=== PATIENT | male | born 1975 | race American Indian/Alaskan Native ===

== ENCOUNTER 2017-11-05 09:27 | Emergency (ER) | payer SELFPAY ==
--- NOTE | 2017-11-05 09:55 | Emergency Department Report ---
Chief Complaint: Dizziness Stated Complaint: DIZZINESS/HEADACHE Time Seen by Provider: 11/05/17 09:54 - HPI History of Present Illness: Patient here complaining of dizziness and lightheadedness this morning. He said he has blurred vision in his right eye. Denies any fall or near Syncope. He said he was diagnosed with a mild stroke one month ago at this hospital and he was admitted and stayed in the hospital for 3 days. He also said he had similar symptoms when he was diagnosed with mild stroke. Patient has a history of high blood pressure, CVA, hypertension and diabetes. He said his blood sugar was 114 this morning. Denies any nausea or vomiting. Complaining of headache that feels achy. Denies any nausea or vomiting. Patient denies any chest pain or shortness of breath. - ROS Review of Systems: All systems are negative unless stated in HPI above - Exam Vital Signs: Vital Signs 11/05/17 09:38 Temperature 98.7 F Pulse Rate 97 H Respiratory 18 Rate Blood Pressure 130/77 O2 Sat by Pulse 96 Oximetry Physical Exam: Gen.: This is a 42-year-old male well-nourished well-developed and nontoxic in appearance Mini neurological exam: GCS is 14, alert and oriented 3. Bilateral hand larry operator are equal. Normal gait. No motor or sensory deficit. No facial droop. An speech is fluid Cardiovascular: S1, S2. Regular rate rhythm negative murmur MSE screening note: Focused history and physical exam performed. Due to findings the following was ordered: ED Medical Decision Making - Medical Decision Making MDM: Patient screened by provider in triage area. Appropriate protocol initiated and patient to be seen in main ED by ED Disposition for MSE Condition: Stable
[2017-11-05 10:27] LABS: Basophils % (Auto) 1.1 % (0.0-1.8); Eosinophils % (Auto) 3.3 % (0.0-4.3); Hematocrit 30.8 % (35.5-45.6); Hemoglobin 10.2 gm/dl (11.8-15.2); Mean Corpuscular HGB Conc 33 % (32-34); Mean Corpuscular Hemoglobin 27 pg (28-32); Mean Corpuscular Volume 80 fl (84-94); Platelet Count 260 K/mm3 (140-440); Red Blood Count 3.85 M/mm3 (3.65-5.03); Red Cell Distribution Width 16.2 % (13.2-15.2); White Blood Count 8.7 K/mm3 (4.5-11.0)
[2017-11-05 10:36] LABS: INR 0.91 (0.87-1.13)
[2017-11-05 10:37] LABS: Partial Thromboplastin Time 31.7 Sec. (24.2-36.6)
[2017-11-05 10:50] LABS: Albumin 3.8 g/dL (3.9-5); Albumin/Globulin Ratio 1.1 %; Bilirubin,Total 0.4 mg/dL (0.1-1.2); Calcium 8.6 mg/dL (8.4-10.2); Chloride 101.2 mmol/L (98-107); Total Protein 7.2 g/dL (6.3-8.2)
--- NOTE | 2017-11-05 11:42 | Cat Scan Report ---
Cranial CT without contrast. History: Lightheadedness/dizziness. Findings: Comparison is made to a previous cranial CT performed on October 02 and an MRI of the brain performed on October 03. There is no evidence of acute hemorrhage or infarct. There are no masses or extra-axial collections. The ventricles and cortical sulci are normal. The mild hypodensity is seen in the periventricular white matter especially posteriorly are unchanged. No significant new findings are seen. There are no extra-axial collections. The calvarium is normal. Minimal mucosal thickening in the visualized maxillary sinuses. Impression: No acute findings. Mild periventricular white matter changes as described on 2 previous imaging studies with no interval change or new findings.
[2017-11-05] MEDS ORDERED: BENADRYL IV ONE (12:09)
[2017-11-05] MEDS ORDERED: REGLAN IV PRN (12:09)
[2017-11-05] MEDS ORDERED: APRESOLINE IV ONE (12:09)
[2017-11-05] MEDS ORDERED: BABY ASPIRIN PO ONE (12:09)
--- NOTE | 2017-11-05 12:10 | Emergency Department Report ---
ED General Adult HPI - General Chief complaint: Dizziness Stated complaint: DIZZINESS/HEADACHE Time Seen by Provider: 11/05/17 09:54 Source: patient, RN notes reviewed, old records reviewed Mode of arrival: Ambulatory Limitations: No Limitations - History of Present Illness Initial comments: This is a 42-year-old male who is previously known to this provider, past medical history includes hypertension, diabetes, congestive heart failure, heart disease, chronic renal insufficiency. Patient presents to the ER with a complaint of occipital headache that was present upon waking up from sleep this morning, and a sensation of unsteady gait. The headache was not sudden or thunderclap in nature, its maximal intensity within an hour, and it is not the worse headache of his life. Patient denies focal extremity weakness/numbness. Today, the patient endorses change in vision in both eyes over the past few months, and endorses "black spots" in his bilateral vision, indicates that he seen in outpatient "eye doctor for this." Patient reports that his sensation of headache has resolved, and the sensation of unsteady gait has resolved. The headache did not radiate anywhere, his symptoms do not have exacerbating or relieving factors. Patient recently admitted to this hospital for presumed transient ischemic attack, had an extensive workup, please see his discharge summary from earlier on October. -: Gradual Location: head Radiation: non-radiation Severity scale (0 -10): 5 Quality: aching Consistency: now resolved Improves with: none Worsens with: none Associated Symptoms: headaches. denies: confusion, chest pain, cough, diaphoresis, fever/chills - Related Data Home Medications Medication Instructions Recorded Confirmed Last Taken Furosemide [Lasix TAB] 40 mg PO QDAY 11/05/17 11/05/17 11/05/17 Potassium Chloride [Klor-Con 10] 10 meq PO DAILY 11/05/17 11/05/17 11/05/17 10 MEQ Pravastatin [Pravachol] 40 mg PO QHS 11/05/17 11/05/17 11/05/17 glipiZIDE [Glipizide] 5 mg PO BIDAC 11/05/17 11/05/17 11/05/17 5 mg metFORMIN [Glucophage] 850 mg PO BID 11/05/17 11/05/17 11/05/17 Previous Rx's Medication Instructions Recorded Last Taken Type Aspirin [Aspirin BABY CHEW TAB] 81 mg PO QDAY #30 tab.chew 09/29/17 11/05/17 Rx 81 mg Carvedilol [Coreg] 12.5 mg PO BID #60 tablet 09/29/17 11/05/17 Rx 12.5 mg cloNIDine [Catapres] 0.1 mg PO Q8H #90 tablet 09/29/17 11/05/17 Rx hydrALAZINE [Apresoline TAB] 100 mg PO Q8HR #90 tab 09/29/17 11/05/17 Rx 100 mg Allergies Allergy/AdvReac Type Severity Reaction Status Date / Time No Known Allergies Allergy Verified 10/02/17 18:06 ED Review of Systems ROS: Stated complaint: DIZZINESS/HEADACHE Other details as noted in HPI Constitutional: denies: fever Eyes: vision change ENT: denies: epistaxis Respiratory: denies: cough Cardiovascular: denies: chest pain Gastrointestinal: denies: abdominal pain Genitourinary: denies: dysuria Neurological: headache, abnormal gait. denies: vertigo ED Past Medical Hx - Past Medical History Previous Medical History?: Yes Hx Hypertension: Yes Hx CVA: Yes Hx Congestive Heart Failure: No Hx Diabetes: Yes Hx Deep Vein Thrombosis: No Hx Arthritis: No Hx Asthma: No Hx COPD: No - Surgical History Past Surgical History?: No - Social History Smoking Status: Current Every Day Smoker Substance Use Type: None - Medications Home Medications: Home Medications Medication Instructions Recorded Confirmed Last Taken Type Aspirin [Aspirin BABY CHEW TAB] 81 mg PO QDAY #30 tab.chew 09/29/17 11/05/1704/17 Rx 81 mg Carvedilol [Coreg] 12.5 mg PO BID #60 tablet 09/29/17 11/05/17 11/05/17 Rx 12.5 mg cloNIDine [Catapres] 0.1 mg PO Q8H #90 tablet 09/29/17 11/05/17 11/05/17 Rx hydrALAZINE [Apresoline TAB] 100 mg PO Q8HR #90 tab 09/29/17 11/05/17 11/05/17 Rx 100 mg Furosemide [Lasix TAB] 40 mg PO QDAY 11/05/17 11/05/17 11/05/17 History Potassium Chloride [Klor-Con 10] 10 meq PO DAILY 11/05/17 11/05/17 11/05/17 History 10 MEQ Pravastatin [Pravachol] 40 mg PO QHS 11/05/17 11/05/17 11/05/17 History glipiZIDE [Glipizide] 5 mg PO BIDAC 11/05/17 11/05/17 11/05/17 History 5 mg metFORMIN [Glucophage] 850 mg PO BID 11/05/17 11/05/17 11/05/17 History ED Physical Exam - General Limitations: No Limitations General appearance: alert, in no apparent distress - Head Head exam: Present: atraumatic, normocephalic - Eye Eye exam: Present: normal appearance, PERRL, EOMI, other (visual acuity intact to finger counting, color perception, reading at a close distance). Absent: nystagmus - ENT ENT exam: Present: normal exam, normal orophraynx, mucous membranes moist, normal external ear exam - Neck Neck exam: Present: normal inspection, full ROM - Respiratory Respiratory exam: Present: normal lung sounds bilaterally. Absent: respiratory distress, chest wall tenderness - Cardiovascular Cardiovascular Exam: Present: regular rate, normal rhythm, normal heart sounds. Absent: systolic murmur, diastolic murmur, rubs, gallop - GI/Abdominal GI/Abdominal exam: Present: soft, normal bowel sounds. Absent: distended, tenderness, guarding, rebound, rigid, pulsatile mass - Rectal Rectal exam: Present: deferred - Extremities Exam Extremities exam: Present: normal inspection, full ROM, normal capillary refill. Absent: pedal edema, joint swelling, calf tenderness - Back Exam Back exam: Present: normal inspection, full ROM. Absent: paraspinal tenderness , vertebral tenderness - Neurological Exam Neurological exam: Present: alert, oriented X3, CN II-XII intact, normal gait ( normal gait, normal tandem gait, negative pronator drift, negative Romberg examination, normal [id number].), other (Extraocular movements intact. Tongue midline. No facial droop. Facial sensation intact to light touch in the V1, V2, V3 distribution bilaterally. 5 and 5 strength in 4 extremities.. Sensation is intact to light touch in 4 extremities.). Absent: motor sensory deficit - Psychiatric Psychiatric exam: Present: normal affect, normal mood - Skin Skin exam: Present: warm, dry, intact, normal color. Absent: rash ED Course Vital Signs 1211/05/17 11/05/17 09:38 11:00 11:30 Temperature 98.7 F Pulse Rate 97 H 77 Respiratory 18 13 18 Rate Blood Pressure 130/77 169/104 Blood Pressure [Left] O2 Sat by Pulse 96 99 Oximetry 11/05/17 11/05/17 11/05/17 11:33 12:00 12:30 Temperature 98.8 F Pulse Rate 75 79 Respiratory 16 16 Rate Blood Pressure 171/109 191/118 Blood Pressure 169/104 [Left] O2 Sat by Pulse 99 98 98 Oximetry 11/05/17 11/05/17 11/05/17 12:37 13:00 13:30 Temperature Pulse Rate 79 Respiratory Rate Blood Pressure 191/118 169/115 174/109 Blood Pressure [Left] O2 Sat by Pulse 95 97 Oximetry ED Medical Decision Making - Lab Data Result diagrams: 11/05/17 10:13 11/05/17 10:13 Vital Signs 11/05/17 11/05/17 11/05/17 09:38 11:00 11:30 Temperature 98.7 F Pulse Rate 97 H 77 Respiratory 18 13 18 Rate Blood Pressure 130/77 169/104 Blood Pressure [Left] O2 Sat by Pulse 96 99 Oximetry 11/05/17 11/05/17 11/05/17 11:33 12:00 12:30 Temperature 98.8 F Pulse Rate 75 79 Respiratory 16 16 Rate Blood Pressure 171/109 191/118 Blood Pressure 169/104 [Left] O2 Sat by Pulse 99 98 98 Oximetry 11/05/17 11/05/17 11/05/17 12:37 13:00 13:30 Temperature Pulse Rate 79 Respiratory Rate Blood Pressure 191/118 169/115 174/109 Blood Pressure [Left] O2 Sat by Pulse 95 97 Oximetry Lab Results 11/05/17 11/05/17 11/05/17 Range/Units 10:13 10:13 10:13 WBC 8.7 (4.5-11.0) K/mm3 RBC 3.85 (3.65-5.03) M/mm3 Hgb 10.2 L (11.8-15.2) gm/dl Hct 30.8 L (35.5-45.6) % MCV 80 L (84-94) fl MCH 27 L (28-32) pg MCHC 33 (32-34) % RDW 16.2 H (13.2-15.2) % Plt Count 260 (140-440) K/mm3 Lymph % (Auto) 11.2 L (13.4-35.0) % [place] % (Auto) 7.8 H (0.0-7.3) % Eos % (Auto) 3.3 (0.0-4.3) % Baso % (Auto) 1.1 (0.0-1.8) % Lymph # 1.0 L (1.2-5.4) K/mm3 [place] # 0.7 (0.0-0.8) K/mm3 Eos # 0.3 (0.0-0.4) K/mm3 Baso # 0.1 (0.0-0.1) K/mm3 Seg Neutrophils % 76.6 H (40.0-70.0) % Seg Neutrophils # 6.7 (1.8-7.7) K/mm3 PT 12.7 (12.2-14.9) Sec. INR 0.91 (0.87-1.13) APTT 31.7 (24.2-36.6) Sec. Sodium 142 (137-145) mmol/L Potassium 4.0 (3.6-5.0) mmol/L Chloride 101.2 (98-107) mmol/L Carbon Dioxide 27 (22-30) mmol/L Anion Gap 18 mmol/L BUN 35 H (9-20) mg/dL Creatinine 2.3 H (0.8-1.5) mg/dL Estimated GFR 38 ml/min BUN/Creatinine Ratio 15 % Glucose 158 H (75-100) mg/dL POC Glucose (70-105) Calcium 8.6 (8.4-10.2) mg/dL Total Bilirubin 0.40 (0.1-1.2) mg/dL AST 11 (5-40) units/L ALT 11 (7-56) units/L Alkaline Phosphatase 74 (35-129) units/L Troponin T (0.00-0.029) ng/mL Total Protein 7.2 (6.3-8.2) g/dL Albumin 3.8 L (3.9-5) g/dL Albumin/Globulin Ratio 1.1 % Triglycerides (2-149) mg/dL Cholesterol (50-199) mg/dL LDL Cholesterol Direct (50-130) mg/dL HDL Cholesterol (40-59) mg/dL Cholesterol/HDL Ratio % 11/05/17 11/05/17 11/05/17 Range/Units 10:13 10:27 11:57 WBC (4.5-11.0) K/mm3 RBC (3.65-5.03) M/mm3 Hgb (11.8-15.2) gm/dl Hct (35.5-45.6) % MCV (84-94) fl MCH (28-32) pg MCHC (32-34) % RDW (13.2-15.2) % Plt Count (140-440) K/mm3 Lymph % (Auto) (13.4-35.0) % [place] % (Auto) (0.0-7.3) % Eos % (Auto) (0.0-4.3) % Baso % (Auto) (0.0-1.8) % Lymph # (1.2-5.4) K/mm3 [place] # (0.0-0.8) K/mm3 Eos # (0.0-0.4) K/mm3 Baso # (0.0-0.1) K/mm3 Seg Neutrophils % (40.0-70.0) % Seg Neutrophils # (1.8-7.7) K/mm3 PT (12.2-14.9) Sec. INR (0.87-1.13) APTT (24.2-36.6) Sec. Sodium (137-145) mmol/L Potassium (3.6-5.0) mmol/L Chloride (98-107) mmol/L Carbon Dioxide (22-30) mmol/L Anion Gap mmol/L BUN (9-20) mg/dL Creatinine (0.8-1.5) mg/dL Estimated GFR ml/min BUN/Creatinine Ratio % Glucose (75-100) mg/dL POC Glucose 158 H 148 H (70-105) Calcium (8.4-10.2) mg/dL Total Bilirubin (0.1-1.2) mg/dL AST (5-40) units/L ALT (7-56) units/L Alkaline Phosphatase (35-129) units/L Troponin T 0.118 H* (0.00-0.029) ng/mL Total Protein (6.3-8.2) g/dL Albumin (3.9-5) g/dL Albumin/Globulin Ratio % Triglycerides 132 (2-149) mg/dL Cholesterol 109 (50-199) mg/dL LDL Cholesterol Direct 43 L (50-130) mg/dL HDL Cholesterol 40 (40-59) mg/dL Cholesterol/HDL Ratio 2.72 % - EKG Data -: EKG Interpreted by Me - EKG Data 11/05/17 14:07 Normal sinus, 76 bpm, normal axis, QTC prolonged, high left ventricular voltage , T-wave inversions in the lateral leads, abnormal EKG, not morphologically consistent with ST elevation myocardial infarction, patient not having chest pain. - Radiology Data Radiology results: report reviewed, image reviewed Noncontrast CT scan of the brain is negative for acute findings, chronic findings are noted. - Medical Decision Making Differential diagnosis, including but not limited to: Transient ischemic attack , migraine headache, cluster headache, tension headache, posterior reversible encephalopathy syndrome X Assessment and plan 42-year-old male with headache, resolved visual complaints, resolved ataxia. He is afebrile with reassuring vital signs, with the exception of hypertension. Patient reports black spots in his vision for months , and reports that he is seeing an outpatient eye doctor for this. GCS of 15, NIH score was 0, woke up with symptoms, therefore not a TPA candidate. His blood pressure is elevated, and he is given hydralazine for this, as well as medication for headache. Case presents to the Hospital physician, Dr. Park, who accepted the patient for further evaluation and management. Patient will require more aggressive blood pressure control. Critical care attestation.: If time is entered above; I have spent that time in minutes in the direct care of this critically ill patient, excluding procedure time. ED Disposition Clinical Impression: TIA (transient ischemic attack), Renal insufficiency, Hypertensive urgency Disposition: OP ADMIT IP TO THIS HOSP Is pt being admited?: Yes Does the pt Need Aspirin: Yes Condition: Good
--- NOTE | 2017-11-05 12:14 | History and Physical Report ---
History of Present Illness Chief complaint: I feel dizzy History of present illness: 42 YO Male with HTN, DM, Nicotine Dependence,CKD, Medication Noncompliance presents to ED for evaluation. Pt seen and evaluated in ED and treated with supportive care, and CT head which was negative for acute findings. Pt seen and evaluated in ED. Patient reports that his sensation of headache has resolved, and the sensation of unsteady gait has resolved. Pt medically optimzied and back to usual stat of health. Pt discharged home and instructed to f/u with Neurology within 1wk. Pt instructed to continue antiplatelet therapy at discharge. Past History Past Medical History: diabetes, hypertension, renal failure Past Surgical History: No surgical history, Other (reviewed) Social history: single, smoking. denies: alcohol abuse, prescription drug abuse Family history: no significant family history Medications and Allergies Allergies Allergy/AdvReac Type Severity Reaction Status Date / Time No Known Allergies Allergy Verified 10/02/17 18:06 Home Medications Medication Instructions Recorded Confirmed Last Taken Type Aspirin [Aspirin BABY CHEW TAB] 81 mg PO QDAY #30 tab.chew 09/29/17 11/05/1704/17 Rx 81 mg Carvedilol [Coreg] 12.5 mg PO BID #60 tablet 09/29/17 11/05/17 11/05/17 Rx 12.5 mg cloNIDine [Catapres] 0.1 mg PO Q8H #90 tablet 09/29/17 11/05/17 11/05/17 Rx hydrALAZINE [Apresoline TAB] 100 mg PO Q8HR #90 tab 09/29/17 11/05/17 11/05/17 Rx 100 mg Furosemide [Lasix TAB] 40 mg PO QDAY 11/05/17 11/05/17 11/05/17 History Potassium Chloride [Klor-Con 10] 10 meq PO DAILY 11/05/17 11/05/17 11/05/17 History 10 MEQ Pravastatin [Pravachol] 40 mg PO QHS 11/05/17 11/05/17 11/05/17 History glipiZIDE [Glipizide] 5 mg PO BIDAC 11/05/17 11/05/17 11/05/17 History 5 mg metFORMIN [Glucophage] 850 mg PO BID 11/05/17 11/05/17 11/05/17 History traMADol [Ultram 50 MG tab] 50 mg PO Q6HR PRN #20 tablet 11/21/17 Unknown Rx Active Meds: Active Medications Metoclopramide HCl (Reglan) 10 mg IV Q6H PRN PRN Reason: Nausea And Vomiting Review of Systems Constitutional: no weight loss, no weight gain, no fever, no chills Ears, nose, mouth and throat: no ear pain, no ear discharge, no tinnitis, no decreased hearing Cardiovascular: no chest pain, no orthopnea, no palpitations, no rapid/ irregular heart beat Respiratory: no cough, no cough with sputum, no excessive sputum, no hemoptysis Gastrointestinal: no nausea, no vomiting, no diarrhea, no constipation Genitourinary Male: no dysuria, no hematuria, no flank pain, no discharge, no urinary frequency, no urinary hesitancy Rectal: no pain, no incontinence, no bleeding Musculoskeletal: no neck stiffness, no neck pain, no shooting arm pain, no arm numbness/tingling, no low back pain Integumentary: no rash, no pruritis, no redness, no sores, no wounds Neurological: no paralysis, no weakness, no parathesias, no numbness, no tingling Psychiatric: no memory loss, no change in sleep habits, no sleep disturbances, no insomnia, no hypersomnia, no change in appetite Endocrine: no cold intolerance, no heat intolerance, no polyphagia, no excessive thirst, no polydipsia, no polyuria, no nocturia Hematologic/Lymphatic: no easy bruising, no easy bleeding Allergic/Immunologic: no urticaria, no allergic rhinitis, no wheezing Exam - Constitutional Vitals: Temp Pulse Resp BP Pulse Ox 98.8 F 75 16 169/104 99 11/05/17 11:33 11/05/17 11:33 11/05/17 11:33 11/05/17 11:33 11/05/17 11:33 General appearance: Present: no acute distress, well-nourished - EENT Eyes: Present: PERRL ENT: hearing intact, clear oral mucosa - Neck Neck: Present: supple, normal ROM - Respiratory Respiratory effort: normal Respiratory: bilateral: CTA - Cardiovascular Heart Sounds: Present: S1 & S2. Absent: rub, click - Extremities Extremities: pulses symmetrical, No edema Peripheral Pulses: within normal limits - Abdominal General gastrointestinal: Present: soft, non-tender, non-distended, normal bowel sounds Male genitourinary: Present: normal - Integumentary Integumentary: Present: clear, warm, dry - Musculoskeletal Musculoskeletal: gait normal, strength equal bilaterally - Psychiatric Psychiatric: appropriate mood/affect, intact judgment & insight - Neurologic Neurologic: CNII-XII intact, moves all extremities Results - Labs CBC & Chem 7: 11/05/17 10:13 11/05/17 10:13 Labs: Abnormal lab results 11/05/17 11/05/17 11/05/17 Range/Units 10:13 10:13 10:13 Hgb 10.2 L (11.8-15.2) gm/dl Hct 30.8 L (35.5-45.6) % MCV 80 L (84-94) fl MCH 27 L (28-32) pg RDW 16.2 H (13.2-15.2) % Lymph % (Auto) 11.2 L (13.4-35.0) % [place] % (Auto) 7.8 H (0.0-7.3) % Lymph # 1.0 L (1.2-5.4) K/mm3 Seg Neutrophils % 76.6 H (40.0-70.0) % BUN 35 H (9-20) mg/dL Creatinine 2.3 H (0.8-1.5) mg/dL Glucose 158 H (75-100) mg/dL POC Glucose (70-105) Troponin T 0.118 H* (0.00-0.029) ng/mL Albumin 3.8 L (3.9-5) g/dL LDL Cholesterol Direct 43 L (50-130) mg/dL 11/05/17 11/05/17 Range/Units 10:27 11:57 Hgb (11.8-15.2) gm/dl Hct (35.5-45.6) % MCV (84-94) fl MCH (28-32) pg RDW (13.2-15.2) % Lymph % (Auto) (13.4-35.0) % [place] % (Auto) (0.0-7.3) % Lymph # (1.2-5.4) K/mm3 Seg Neutrophils % (40.0-70.0) % BUN (9-20) mg/dL Creatinine (0.8-1.5) mg/dL Glucose (75-100) mg/dL POC Glucose 158 H 148 H (70-105) Troponin T (0.00-0.029) ng/mL Albumin (3.9-5) g/dL LDL Cholesterol Direct (50-130) mg/dL Assessment and Plan - Patient Problems (1) Dizziness Status: Acute Plan to address problem: CT Head unremarkable for acute findings. Outpatient Neurology f/u. F/U pcp 1wk, resume antiplatelet therapy. (2) Diabetes Status: Acute Plan to address problem: resume current therapy. (3) HTN (hypertension) Status: Acute Plan to address problem: resume home medication.
[2017-11-05] MEDS ORDERED: CATAPRES PO ONE (14:20)
[2017-11-05] MEDS ORDERED: COREG PO ONE (14:20)
[2017-11-05 15:16] VITALS: BP 146/87
== END 2017-11-05 15:25 | disposition admitted as inpatient to this hospital (09) ==
LOC: ED 09:27
DX: G45.9 Transient cerebral ischemic attack, unspecified (principal); I16.0 Hypertensive urgency; E11.22 Type 2 diabetes mellitus with diabetic chronic kidney disease; I13.0 Hypertensive heart and chronic kidney disease with heart failure and stage 1 through stage 4 chronic kidney disease, or unspecified chronic kidney disease; N18.9 Chronic kidney disease, unspecified; I50.9 Heart failure, unspecified; F17.200 Nicotine dependence, unspecified, uncomplicated
CPT/HCPCS: 36415; 70450; 80053; 80061; 82962; 84484; 85025; 85610; 85730; 96374; 96375; 99284; J0360; J1200; J2765

== ENCOUNTER 2017-11-20 17:45 | Emergency (ER) | payer OTHER ==
[2017-11-20 18:40] LABS: Basophils % (Auto) 0.7 % (0.0-1.8); Eosinophils % (Auto) 3.8 % (0.0-4.3); Hematocrit 31.6 % (35.5-45.6); Hemoglobin 10.4 gm/dl (11.8-15.2); Mean Corpuscular HGB Conc 33 % (32-34); Mean Corpuscular Hemoglobin 26 pg (28-32); Mean Corpuscular Volume 80 fl (84-94); Platelet Count 233 K/mm3 (140-440); Red Blood Count 3.95 M/mm3 (3.65-5.03); Red Cell Distribution Width 17.6 % (13.2-15.2); White Blood Count 7.6 K/mm3 (4.5-11.0)
[2017-11-20 18:51] LABS: Mucus,Urine FEW /HPF
[2017-11-20 18:55] LABS: Calcium 8.9 mg/dL (8.4-10.2); Chloride 98.1 mmol/L (98-107)
[2017-11-20 19:20] LABS: Bacteria,Urine 1+ /HPF (Negative)
[2017-11-20 20:09] LABS: Bilirubin,Urine TNR (Negative); Blood,Urine TNR (Negative); Ketones,Urine TNR mg/dL (Negative); Leukocyte Esterase,Urine TNR (Negative); Nitrite,Urine TNR (Negative); PH,Urine TNR (5.0-7.0); Protein,Urine TNR mg/dL (Negative); Urobilinogen,Urine TNR mg/dL (<2.0)
[2017-11-21] MEDS ORDERED: CATAPRES PO ONE (01:09)
--- NOTE | 2017-11-21 01:18 | Emergency Department Report ---
- General Chief complaint: Pain General Stated complaint: FLU LIKE SYMPTOMS Time Seen by Provider: 11/20/17 23:49 Source: patient, family, old records reviewed Mode of arrival: Ambulatory Limitations: No Limitations - History of Present Illness Initial comments: 42-year-old man with a past medical history of diabetes, hypertension, and chronic renal insufficiency presents to the hospital with complaints of generalized weakness. Triage states weakness 3 days. Patient states weakness 1 day. Patient complains of generalized body aches and feeling weak and fatigued. Family states he was just here in October for stroke. As per October discharge summary reviewed and patient presented with right side numbness, tingling, and slurred speech, elevated troponin 0.1, elevated creatinine 2.5, elevated glucose of 314. He was diagnosed with TIA and had a brain MRI that was normal. He was treated for accelerated hypertension. He had a cardiac cath received ostial D2 100% mid RCA and left to right collaterals recommended for medical therapy by cardiology. Patient also had carotid Dopplers and echocardiogram performed. Nonspecific elevation in troponin was thought to be secondary to chronic kidney disease, underlying CHF, and uncontrolled BP. Patient denies cough, fever, dysuria, vomiting, diarrhea, or melena. Symptoms are generalized and nonspecific. Patient apparently has been experienced generalized weakness since October presentation. Patient presents with area blood pressure states she's been compliant but did not take his 10pm dose of his BP medication because he was in the hospital. Patient also presenting here November 05 but was discharged from the ED. patient does not have a primary care - Related Data Home Medications Medication Instructions Recorded Confirmed Last Taken Furosemide [Lasix TAB] 40 mg PO QDAY 11/05/17 11/05/17 11/05/17 Potassium Chloride [Klor-Con 10] 10 meq PO DAILY 11/05/17 11/05/17 11/05/17 10 MEQ Pravastatin [Pravachol] 40 mg PO QHS 11/05/17 11/05/17 11/05/17 glipiZIDE [Glipizide] 5 mg PO BIDAC 11/05/17 11/05/17 11/05/17 5 mg metFORMIN [Glucophage] 850 mg PO BID 11/05/17 11/05/17 11/05/17 Previous Rx's Medication Instructions Recorded Last Taken Type Aspirin [Aspirin BABY CHEW TAB] 81 mg PO QDAY #30 tab.chew 09/29/17 11/05/17 Rx 81 mg Carvedilol [Coreg] 12.5 mg PO BID #60 tablet 09/29/17 11/05/17 Rx 12.5 mg cloNIDine [Catapres] 0.1 mg PO Q8H #90 tablet 09/29/17 11/05/17 Rx hydrALAZINE [Apresoline TAB] 100 mg PO Q8HR #90 tab 09/29/17 11/05/17 Rx 100 mg traMADol [Ultram 50 MG tab] 50 mg PO Q6HR PRN #20 tablet 11/21/17 Unknown Rx Allergies Allergy/AdvReac Type Severity Reaction Status Date / Time No Known Allergies Allergy Verified 10/02/17 18:06 ED Review of Systems ROS: Stated complaint: FLU LIKE SYMPTOMS Other details as noted in HPI Comment: All other systems reviewed and negative Other: Constitutional: No fevers chills Eyes: No eye pain visual changes ENT: No ear pain or throat pain Neck: Denies pain Respiratory: Denies cough wheezing shortness of breath Cardiovascular: Denies chest pain, palpitations, syncope GI: Denies abdominal pain, nausea, vomiting, diarrhea : Denies dysuria Musculoskeletal: as per hpi Skin: Denies rash, lesions, erythema Neurologic: Denies headache Psychiatric: Denies suicidal ideation, hallucinations ED Past Medical Hx - Past Medical History Previous Medical History?: Yes Hx Hypertension: Yes Hx CVA: Yes Hx Congestive Heart Failure: No Hx Diabetes: Yes Hx Deep Vein Thrombosis: No Hx Renal Disease: Yes (chronic renal insufficiency) Hx Arthritis: No Hx Asthma: No Hx COPD: No - Surgical History Past Surgical History?: No - Social History Smoking Status: Current Every Day Smoker Substance Use Type: Prescribed - Medications Home Medications: Home Medications Medication Instructions Recorded Confirmed Last Taken Type Aspirin [Aspirin BABY CHEW TAB] 81 mg PO QDAY #30 tab.chew 09/29/17 11/05/1704/17 Rx 81 mg Carvedilol [Coreg] 12.5 mg PO BID #60 tablet 09/29/17 11/05/17 11/05/17 Rx 12.5 mg cloNIDine [Catapres] 0.1 mg PO Q8H #90 tablet 09/29/17 11/05/17 11/05/17 Rx hydrALAZINE [Apresoline TAB] 100 mg PO Q8HR #90 tab 09/29/17 11/05/17 11/05/17 Rx 100 mg Furosemide [Lasix TAB] 40 mg PO QDAY 11/05/17 11/05/17 11/05/17 History Potassium Chloride [Klor-Con 10] 10 meq PO DAILY 11/05/17 11/05/17 11/05/17 History 10 MEQ Pravastatin [Pravachol] 40 mg PO QHS 11/05/17 11/05/17 11/05/17 History glipiZIDE [Glipizide] 5 mg PO BIDAC 11/05/17 11/05/17 11/05/17 History 5 mg metFORMIN [Glucophage] 850 mg PO BID 11/05/17 11/05/17 11/05/17 History traMADol [Ultram 50 MG tab] 50 mg PO Q6HR PRN #20 tablet 11/21/17 Unknown Rx ED Physical Exam - General Limitations: No Limitations - Other Other exam information: General: No limitations, patient is alert in no acute distress Head exam: Atraumatic, normocephalic Eyes exam: Normal appearance, pupils equal reactive to light, extraocular movements intact ENT: Moist mucous membrane, normal oropharynx Neck exam: Normal inspection, full range of motion, no meningismus nontender Respiratory exam: Clear to auscultation bilateral, no wheezes, rales, crackles Cardiovascular: Normal rate and rhythm, normal heart sounds Abdomen: Soft, nondistended, and nontender, with normal bowel sounds, no rebound, or guarding Extremity: Full range of motion normal inspection no deformity Back: Normal Inspection, full range of motion, no tenderness Neurologic: Alert, oriented x3, cranial nerves intact, no motor or sensory deficit, 5/5 upper and lower extremity strength equal bilaterally, finger-nose- finger function intact Psychiatric: normal affect, normal mood Skin: Warm, dry, intact ED Course Vital Signs 11/20/17 11/20/17 11/21/17 17:59 23:39 01:37 Temperature 99.6 F 97.9 F Pulse Rate 87 92 H Respiratory 16 18 Rate Blood Pressure 170/112 197/128 Blood Pressure 186/117 [Right] O2 Sat by Pulse 99 97 Oximetry - Reevaluation(s) Reevaluation #1: 11/21/17 03:17 Patient treated with clonidine with reduction in blood pressure. Also given tramadol for generalized body ED Medical Decision Making - Lab Data Result diagrams: 11/20/17 18:17 11/20/17 18:17 Lab Results 11/20/17 11/20/17 11/20/17 Range/Units 18:05 18:17 18:17 WBC 7.6 (4.5-11.0) K/mm3 RBC 3.95 (3.65-5.03) M/mm3 Hgb 10.4 L (11.8-15.2) gm/dl Hct 31.6 L (35.5-45.6) % MCV 80 L (84-94) fl MCH 26 L (28-32) pg MCHC 33 (32-34) % RDW 17.6 H (13.2-15.2) % Plt Count 233 (140-440) K/mm3 Lymph % (Auto) 14.9 (13.4-35.0) % [place] % (Auto) 8.0 H (0.0-7.3) % Eos % (Auto) 3.8 (0.0-4.3) % Baso % (Auto) 0.7 (0.0-1.8) % Lymph # 1.1 L (1.2-5.4) K/mm3 [place] # 0.6 (0.0-0.8) K/mm3 Eos # 0.3 (0.0-0.4) K/mm3 Baso # 0.1 (0.0-0.1) K/mm3 Seg Neutrophils % 72.6 H (40.0-70.0) % Seg Neutrophils # 5.5 (1.8-7.7) K/mm3 Sodium 137 (137-145) mmol/L Potassium 4.0 (3.6-5.0) mmol/L Chloride 98.1 (98-107) mmol/L Carbon Dioxide 27 (22-30) mmol/L Anion Gap 16 mmol/L BUN 29 H (9-20) mg/dL Creatinine 2.1 H (0.8-1.5) mg/dL Estimated GFR 42 ml/min BUN/Creatinine Ratio 14 % Glucose 193 H (75-100) mg/dL POC Glucose 224 H (70-105) Calcium 8.9 (8.4-10.2) mg/dL Total Creatine Kinase (55-170) units/L CK-MB (CK-2) (0.0-4.0) ng/mL CK-MB (CK-2) Rel Index (0-4) Troponin T (0.00-0.029) ng/mL Triglycerides (2-149) mg/dL Cholesterol (50-199) mg/dL LDL Cholesterol Direct (50-130) mg/dL HDL Cholesterol (40-59) mg/dL Cholesterol/HDL Ratio % TSH (0.270-4.200) mlU/mL Free T4 (0.76-1.46) ng/dL Urine Color Urine Turbidity Urine pH Ur Specific [place] Urine Protein Urine Glucose (UA) Urine Ketones Urine Blood Urine Nitrite Ur Reducing Substances Urine Bilirubin Urine Ictotest Urine Urobilinogen Ur Leukocyte Esterase Urine WBC (Auto) (0.0-6.0) /HPF Urine RBC (Auto) (0.0-6.0) /HPF Urine Bacteria (Auto) (Negative) /HPF Hyaline Casts /LPF Urine Mucus /HPF 11/20/17 11/21/17 11/21/17 Range/Units Unknown 01:17 01:17 WBC (4.5-11.0) K/mm3 RBC (3.65-5.03) M/mm3 Hgb (11.8-15.2) gm/dl Hct (35.5-45.6) % MCV (84-94) fl MCH (28-32) pg MCHC (32-34) % RDW (13.2-15.2) % Plt Count (140-440) K/mm3 Lymph % (Auto) (13.4-35.0) % [place] % (Auto) (0.0-7.3) % Eos % (Auto) (0.0-4.3) % Baso % (Auto) (0.0-1.8) % Lymph # (1.2-5.4) K/mm3 [place] # (0.0-0.8) K/mm3 Eos # (0.0-0.4) K/mm3 Baso # (0.0-0.1) K/mm3 Seg Neutrophils % (40.0-70.0) % Seg Neutrophils # (1.8-7.7) K/mm3 Sodium (137-145) mmol/L Potassium (3.6-5.0) mmol/L Chloride (98-107) mmol/L Carbon Dioxide (22-30) mmol/L Anion Gap mmol/L BUN (9-20) mg/dL Creatinine (0.8-1.5) mg/dL Estimated GFR ml/min BUN/Creatinine Ratio % Glucose (75-100) mg/dL POC Glucose (70-105) Calcium (8.4-10.2) mg/dL Total Creatine Kinase 183 H (55-170) units/L CK-MB (CK-2) 7.6 H (0.0-4.0) ng/mL CK-MB (CK-2) Rel Index 4.1 H (0-4) Troponin T 0.100 H (0.00-0.029) ng/mL Triglycerides 59 (2-149) mg/dL Cholesterol 111 (50-199) mg/dL LDL Cholesterol Direct 57 (50-130) mg/dL HDL Cholesterol 43 (40-59) mg/dL Cholesterol/HDL Ratio 2.58 % TSH 3.070 (0.270-4.200) mlU/mL Free T4 1.66 H (0.76-1.46) ng/dL Urine Color TNR Urine Turbidity TNR Urine pH TNR Ur Specific [place] TNR Urine Protein TNR Urine Glucose (UA) TNR Urine Ketones TNR Urine Blood TNR Urine Nitrite TNR Ur Reducing Substances TNR Urine Bilirubin TNR Urine Ictotest TNR Urine Urobilinogen TNR Ur Leukocyte Esterase TNR Urine WBC (Auto) 1.0 (0.0-6.0) /HPF Urine RBC (Auto) 1.0 (0.0-6.0) /HPF Urine Bacteria (Auto) 1+ (Negative) /HPF Hyaline Casts 1 /LPF Urine Mucus Few /HPF 11/21/17 11/21/17 Range/Units 03:13 Unknown WBC (4.5-11.0) K/mm3 RBC (3.65-5.03) M/mm3 Hgb (11.8-15.2) gm/dl Hct (35.5-45.6) % MCV (84-94) fl MCH (28-32) pg MCHC (32-34) % RDW (13.2-15.2) % Plt Count (140-440) K/mm3 Lymph % (Auto) (13.4-35.0) % [place] % (Auto) (0.0-7.3) % Eos % (Auto) (0.0-4.3) % Baso % (Auto) (0.0-1.8) % Lymph # (1.2-5.4) K/mm3 [place] # (0.0-0.8) K/mm3 Eos # (0.0-0.4) K/mm3 Baso # (0.0-0.1) K/mm3 Seg Neutrophils % (40.0-70.0) % Seg Neutrophils # (1.8-7.7) K/mm3 Sodium (137-145) mmol/L Potassium (3.6-5.0) mmol/L Chloride (98-107) mmol/L Carbon Dioxide (22-30) mmol/L Anion Gap mmol/L BUN (9-20) mg/dL Creatinine (0.8-1.5) mg/dL Estimated GFR ml/min BUN/Creatinine Ratio % Glucose (75-100) mg/dL POC Glucose 92 (70-105) Calcium (8.4-10.2) mg/dL Total Creatine Kinase (55-170) units/L CK-MB (CK-2) (0.0-4.0) ng/mL CK-MB (CK-2) Rel Index (0-4) Troponin T (0.00-0.029) ng/mL Triglycerides (2-149) mg/dL Cholesterol (50-199) mg/dL LDL Cholesterol Direct (50-130) mg/dL HDL Cholesterol (40-59) mg/dL Cholesterol/HDL Ratio % TSH (0.270-4.200) mlU/mL Free T4 (0.76-1.46) ng/dL Urine Color Yellow Urine Turbidity Clear Urine pH 6.0 Ur Specific [place] 1.015 Urine Protein 100 mg/dl Urine Glucose (UA) Negative Urine Ketones Negative Urine Blood Negative Urine Nitrite Negative Ur Reducing Substances Not Reportable Urine Bilirubin Negative Urine Ictotest Not Reportable Urine Urobilinogen < 2.0 Ur Leukocyte Esterase Negative Urine WBC (Auto) < 1.0 (0.0-6.0) /HPF Urine RBC (Auto) 2.0 (0.0-6.0) /HPF Urine Bacteria (Auto) 1+ (Negative) /HPF Hyaline Casts /LPF Urine Mucus /HPF - EKG Data -: EKG Interpreted by Me EKG shows normal: sinus rhythm, axis (-32), QRS complexes (99), ST-T waves (lat t inv) Rate: normal (91) - EKG Data When compared to previous EKG there are: no significant change (compared to 11/05) - Medical Decision Making Patient's labs do not reveal any acute abnormality. Patient has chronically elevated troponin that is similar to his baseline and had a recent cardiac cath on October admission. Patient also reported generalized weakness and presents with no focality on exam. Had a MRI during his TIA symptoms in October and did not have any acute findings. UA negative for infection. No signs of rhabdomyolysis as patient is on a statin. Renal insufficiency is chronic and unchanged. Orthostatics negative, and patient does not have significant thyroid disease based on labs. EKG is also unchanged. Patient be discharged home to follow with the primary care doctor for generalized weakness complaints. - Differential Diagnosis anemia, dehydration, rhabdomyolysis, infection,electrolyte abnl Critical Care Time: No Critical care attestation.: If time is entered above; I have spent that time in minutes in the direct care of this critically ill patient, excluding procedure time. ED Disposition Clinical Impression: Generalized weakness, HTN (hypertension), Diabetes, Chronic renal insufficiency Disposition: DC-01 TO HOME OR SELFCARE Is pt being admited?: No Does the pt Need Aspirin: No Condition: Stable Instructions: Weakness (ED), Hypertension (ED), Diabetes Mellitus Type 2 in Adults (ED) Additional Instructions: Follow-up with a primary care doctor for further outpatient workup and evaluation of generalized body aches and weakness. Please return if symptoms worsen as indicated by O discharge or shortness. Take the prescribed medications for pain as needed. Prescriptions: traMADol [Ultram 50 MG tab] 50 mg PO Q6HR PRN #20 tablet PRN Reason: Pain Referrals: SIMON VIRK MD [Staff Physician] - 3-5 Days (Primary care doctor) [facility] [Provider Group] - 3-5 Days (primary care clinic) Time of Disposition: 03:20
[2017-11-21] MEDS ORDERED: ULTRAM PO ONE (01:34)
[2017-11-21 01:37] VITALS: BP 197/128
[2017-11-21 02:10] LABS: Creatine Kinase MB 7.6 ng/mL (0.0-4.0)
[2017-11-21 02:35] LABS: Bacteria,Urine 1+ /HPF (Negative); WBC,Urine < 1.0 /HPF (0.0-6.0)
[2017-11-21 02:58] LABS: Bilirubin,Urine Negative (Negative); Blood,Urine Negative (Negative); Ketones,Urine Negative (Negative); Urobilinogen,Urine < 2.0 mg/dL (<2.0)
[2017-11-21 02:59] LABS: Leukocyte Esterase,Urine Negative (Negative); Nitrite,Urine Negative (Negative)
== END 2017-11-21 03:34 | disposition home or self-care (01) ==
LOC: ED 17:45
DX: R53.1 Weakness (principal); E11.22 Type 2 diabetes mellitus with diabetic chronic kidney disease; I12.9 Hypertensive chronic kidney disease with stage 1 through stage 4 chronic kidney disease, or unspecified chronic kidney disease; N18.9 Chronic kidney disease, unspecified; F17.200 Nicotine dependence, unspecified, uncomplicated; Z86.73 Personal history of transient ischemic attack (TIA), and cerebral infarction without residual deficits
CPT/HCPCS: 36415; 80048; 80061; 81001; 82550; 82553; 82962; 84439; 84443; 84484; 85025; 93005; 93010; 99283

== ENCOUNTER 2018-01-04 17:11 | Inpatient (IN) | payer OTHER ==
[2018-01-04] MEDS ORDERED: ASPIRIN PO ONE (17:20)
[2018-01-04 18:38] LABS: Hemoglobin 9.8 gm/dl (11.8-15.2); Mean Corpuscular HGB Conc 33 % (32-34); Mean Corpuscular Hemoglobin 27 pg (28-32); Mean Corpuscular Volume 81 fl (84-94); Platelet Count 236 K/mm3 (140-440); Red Blood Count 3.69 M/mm3 (3.65-5.03); Red Cell Distribution Width 18.8 % (13.2-15.2)
[2018-01-04 18:47] LABS: Basophils # (Auto) 0.1 K/mm3 (0.0-0.1); Basophils % (Auto) 0.7 % (0.0-1.8); Eosinophils # (Auto) 0.3 K/mm3 (0.0-0.4); Eosinophils % (Auto) 3.3 % (0.0-4.3); Lymphocytes # (Auto) 0.9 K/mm3 (1.2-5.4); Lymphocytes % (Auto) 11.1 % (13.4-35.0); Monocytes # (Auto) 0.7 K/mm3 (0.0-0.8); Monocytes % (Auto) 8.7 % (0.0-7.3)
[2018-01-04 18:56] LABS: Albumin 3.8 g/dL (3.9-5); Calcium 8.7 mg/dL (8.4-10.2)
[2018-01-04 19:09] LABS: Chol/HDL Ratio 2.59 %
[2018-01-04 19:55] LABS: Anisocytosis 1+; Basophils % (Manual) 0 % (0.0-1.8); Platelet Estimate Consistent w Auto; Total Cells Counted 100
[2018-01-04 20:14] LABS: Bacteria,Urine 1+ /HPF (Negative); Bilirubin,Urine NEG (Negative); Blood,Urine SM (Negative); Color,Urine Yellow (Yellow); Mucus,Urine FEW /HPF; Nitrite,Urine NEG (Negative); Urobilinogen,Urine < 2.0 mg/dL (<2.0)
[2018-01-04] MEDS ORDERED: SUBLIMAZE IV ONE (21:32)
[2018-01-04] MEDS ORDERED: ZOFRAN IV ONE (21:32)
--- NOTE | 2018-01-04 21:37 | Emergency Department Report ---
HPI - General Chief Complaint: Chest Pain Time Seen by Provider: 01/04/18 21:23 - HPI HPI: Room 6 The patient is a 42-year-old male presenting with a chief complaint of left chest pain. The patient states for the past 4 days she's had intermittent pain along the left ribs. Patient states the pain has been increasing prompted him to come to the emergency department. Patient is to nausea but denies vomiting. Patient denies pleurisy or shortness of breath. Patient denies any history of fever. Patient admits to an occasional cough but states it is not productive. Patient reportedly had a 2 hour car trip to and from [facility] today. The patient also complains of left flank/upper quadrant abdominal pain intermittently since September 2017. Location: Left flank, left chest Duration: 4 days, see above Quality: Pain Severity: 07/11 Modifying factors: [see above] Context: [see above] Mode of transportation: [not driving] ED Past Medical Hx - Past Medical History Hx Hypertension: Yes Hx CVA: Yes Hx Diabetes: Yes Hx Renal Disease: Yes (chronic renal insufficiency) - Surgical History Additional Surgical History: heart cath 09/2017 - Family History Family history: no significant - Social History Smoking Status: Current Some Day Smoker Substance Use Type: None (denies illicit drug use) - Medications Home Medications: Home Medications Medication Instructions Recorded Confirmed Last Taken Type Aspirin [Aspirin BABY CHEW TAB] 81 mg PO QDAY #30 tab.chew 09/29/17 11/05/1704/17 Rx 81 mg Carvedilol [Coreg] 12.5 mg PO BID #60 tablet 09/29/17 11/05/17 11/05/17 Rx 12.5 mg cloNIDine [Catapres] 0.1 mg PO Q8H #90 tablet 09/29/17 11/05/17 11/05/17 Rx hydrALAZINE [Apresoline TAB] 100 mg PO Q8HR #90 tab 09/29/17 11/05/17 11/05/17 Rx 100 mg Furosemide [Lasix TAB] 40 mg PO QDAY 11/05/17 11/05/17 11/05/17 History Potassium Chloride [Klor-Con 10] 10 meq PO DAILY 11/05/17 11/05/17 11/05/17 History 10 MEQ Pravastatin [Pravachol] 40 mg PO QHS 11/05/17 11/05/17 11/05/17 History glipiZIDE [Glipizide] 5 mg PO BIDAC 11/05/17 11/05/17 11/05/17 History 5 mg metFORMIN [Glucophage] 850 mg PO BID 11/05/17 11/05/17 11/05/17 History traMADol [Ultram 50 MG tab] 50 mg PO Q6HR PRN #20 tablet 11/21/17 Unknown Rx ED Review of Systems ROS: Stated complaint: RIB PAIN Other details as noted in HPI Constitutional: denies: fever Respiratory: denies: shortness of breath Cardiovascular: chest pain Gastrointestinal: abdominal pain, nausea. denies: vomiting Physical Exam - Physical Exam Vital Signs: Vital Signs 01/04/18 17:14 Temperature 99.2 F Pulse Rate 89 Respiratory 20 Rate Blood Pressure 187/111 O2 Sat by Pulse 97 Oximetry Physical Exam: GENERAL: The patient is well-developed well-nourished male sitting on stretcher not appear to be in acute distress. [] HEENT: Normocephalic. Atraumatic. Extraocular motions are intact. Patient has moist mucous membranes. NECK: Supple. Trachea midline CHEST/LUNGS: Clear to auscultation. There is no respiratory distress noted. HEART/CARDIOVASCULAR: Regular. There is no tachycardia. There is no gallop rub or murmur. ABDOMEN: Abdomen is soft, with tenderness to palpation in the midepigastric and left upper quadrant. Patient has normal bowel sounds. There is no abdominal distention. SKIN: There is no rash. There is no edema. There is no diaphoresis. NEURO: The patient is awake, alert, and oriented. The patient is cooperative. The patient has normal speech MUSCULOSKELETAL: There is left CVA tenderness. There is no evidence of acute injury. ED Course Vital Signs 01/04/18 17:14 Temperature 99.2 F Pulse Rate 89 Respiratory 20 Rate Blood Pressure 187/111 O2 Sat by Pulse 97 Oximetry ED Medical Decision Making - Lab Data Result diagrams: 01/04/18 17:34 01/04/18 17:34 Laboratory Tests 01/04/18 01/04/18 01/04/18 17:24 17:34 17:34 WBC 8.3 RBC 3.69 Hgb 9.8 L Hct 30.0 L MCV 81 L MCH 27 L MCHC 33 RDW 18.8 H Plt Count 236 Lymph % (Auto) 11.1 L Elk % (Auto) 8.7 H Eos % (Auto) 3.3 Baso % (Auto) 0.7 Lymph # 0.9 L Elk # 0.7 Eos # 0.3 Baso # 0.1 Add Manual Diff Complete Total Counted 100 Seg Neutrophils % 76.2 H Seg Neuts % (Manual) 80.0 H Band Neutrophils % 0 Lymphocytes % (Manual) 11.0 L Reactive Lymphs % (Man) 0 Monocytes % (Manual) 8.0 H Eosinophils % (Manual) 1.0 Basophils % (Manual) 0 Metamyelocytes % 0 Myelocytes % 0 Promyelocytes % 0 Blast Cells % 0 Nucleated RBC % Not Reportable Seg Neutrophils # 6.3 Seg Neutrophils # Man 6.6 Band Neutrophils # 0.0 Lymphocytes # (Manual) 0.9 L Abs React Lymphs (Man) 0.0 Monocytes # (Manual) 0.7 Eosinophils # (Manual) 0.1 Basophils # (Manual) 0.0 Metamyelocytes # 0.0 Myelocytes # 0.0 Promyelocytes # 0.0 Blast Cells # 0.0 WBC Morphology Not Reportable Hypersegmented Neuts Not Reportable Hyposegmented Neuts Not Reportable Hypogranular Neuts Not Reportable Smudge Cells Not Reportable Toxic Granulation Not Reportable Toxic Vacuolation Not Reportable Dohle Bodies Not Reportable Pelger-Huet Anomaly Not Reportable Mone Rods Not Reportable Platelet Estimate Consistent w auto Clumped Platelets Not Reportable Plt Clumps, EDTA Not Reportable Large Platelets Not Reportable Giant Platelets Not Reportable Platelet Satelliting Not Reportable Plt Morphology Comment Not Reportable RBC Morphology Not Reportable Dimorphic RBCs Not Reportable Polychromasia Not Reportable Hypochromasia Not Reportable Poikilocytosis Not Reportable Anisocytosis 1+ Microcytosis Not Reportable Macrocytosis Not Reportable Spherocytes Not Reportable Pappenheimer Bodies Not Reportable Sickle Cells Not Reportable Target Cells Not Reportable Tear Drop Cells Not Reportable Ovalocytes Not Reportable Helmet Cells Not Reportable Espinal-[place] Bodies Not Reportable [place] Rings Not Reportable Syl Cells Not Reportable Bite Cells Not Reportable Crenated Cell Not Reportable Elliptocytes Not Reportable Acanthocytes (Spur) Not Reportable Rouleaux Not Reportable Hemoglobin C Crystals Not Reportable Schistocytes Not Reportable Malaria parasites Not Reportable Rich Bodies Not Reportable Hem Pathologist Commnt No Sodium Cancelled Potassium Cancelled Chloride Cancelled Carbon Dioxide Cancelled Anion Gap Cancelled BUN Cancelled Creatinine Cancelled Estimated GFR Cancelled BUN/Creatinine Ratio Cancelled Glucose Cancelled POC Glucose 265 H Calcium Cancelled Total Bilirubin AST ALT Alkaline Phosphatase Troponin T 0.115 H* Total Protein Albumin Albumin/Globulin Ratio Triglycerides 51 Cholesterol 109 LDL Cholesterol Direct 57 HDL Cholesterol 42 Cholesterol/HDL Ratio 2.59 Lipase Urine Color Urine Turbidity Urine pH Ur Specific [place] Urine Protein Urine Glucose (UA) Urine Ketones Urine Blood Urine Nitrite Urine Bilirubin Urine Urobilinogen Ur Leukocyte Esterase Urine WBC (Auto) Urine RBC (Auto) Urine Bacteria (Auto) Urine Mucus 01/04/18 01/04/18 01/04/18 17:34 20:06 Unknown WBC RBC Hgb Hct MCV MCH MCHC RDW Plt Count Lymph % (Auto) Elk % (Auto) Eos % (Auto) Baso % (Auto) Lymph # Elk # Eos # Baso # Add Manual Diff Total Counted Seg Neutrophils % Seg Neuts % (Manual) Band Neutrophils % Lymphocytes % (Manual) Reactive Lymphs % (Man) Monocytes % (Manual) Eosinophils % (Manual) Basophils % (Manual) Metamyelocytes % Myelocytes % Promyelocytes % Blast Cells % Nucleated RBC % Seg Neutrophils # Seg Neutrophils # Man Band Neutrophils # Lymphocytes # (Manual) Abs React Lymphs (Man) Monocytes # (Manual) Eosinophils # (Manual) Basophils # (Manual) Metamyelocytes # Myelocytes # Promyelocytes # Blast Cells # WBC Morphology Hypersegmented Neuts Hyposegmented Neuts Hypogranular Neuts Smudge Cells Toxic Granulation Toxic Vacuolation Dohle Bodies Pelger-Huet Anomaly Mone Rods Platelet Estimate Clumped Platelets Plt Clumps, EDTA Large Platelets Giant Platelets Platelet Satelliting Plt Morphology Comment RBC Morphology Dimorphic RBCs Polychromasia Hypochromasia Poikilocytosis Anisocytosis Microcytosis Macrocytosis Spherocytes Pappenheimer Bodies Sickle Cells Target Cells Tear Drop Cells Ovalocytes Helmet Cells Espinal-[place]yer Bodies [place] Cells Bite Cells Crenated Cell Elliptocytes Acanthocytes (Spur) Rouleaux Hemoglobin C Crystals Schistocytes Malaria parasites Rich Bodies Hem Pathologist Commnt Sodium 136 L Potassium 3.7 Chloride 95.3 L Carbon Dioxide 26 Anion Gap 18 BUN 31 H Creatinine 2.2 H Estimated GFR 40 BUN/Creatinine Ratio 14 Glucose 245 H POC Glucose Calcium 8.7 Total Bilirubin 0.30 AST 14 ALT 14 Alkaline Phosphatase 71 Troponin T 0.125 H* Total Protein 7.0 Albumin 3.8 L Albumin/Globulin Ratio 1.2 Triglycerides Cholesterol LDL Cholesterol Direct HDL Cholesterol Cholesterol/HDL Ratio Lipase 40 Urine Color Yellow Urine Turbidity Clear Urine pH 5.0 Ur Specific [place] 1.013 Urine Protein 100 mg/dl Urine Glucose (UA) 150 Urine Ketones Neg Urine Blood Sm Urine Nitrite Neg Urine Bilirubin Neg Urine Urobilinogen < 2.0 Ur Leukocyte Esterase Neg Urine WBC (Auto) 1.0 Urine RBC (Auto) 1.0 Urine Bacteria (Auto) 1+ Urine Mucus Few - EKG Data -: EKG Interpreted by Me EKG shows normal: sinus rhythm Rate: normal - EKG Data When compared to previous EKG there are: changes noted Interpretation: nonspecific ST-T wave andreina (new T-wave inversions in leads 2, V2 otherwise unchanged when compared to previous EKG dated 11/21/2017) - Radiology Data Radiology results: report reviewed (CT abdomen and pelvis, VQ scan), image reviewed (CT abdomen and pelvis, chest x-ray, VQ scan) interpreted by me: Chest x-ray-no focal infiltrates, no pneumothorax FINAL REPORT PROCEDURE: CT ABDOMEN PELVIS WO CON TECHNIQUE: Computerized axial tomography of the abdomen and pelvis was performed without intravenous contrast. This study is performed without intravascular contrast material and its sensitivity for abdominal and pelvic pathology, including neoplasms, inflammation, abscess, free fluid, thrombosis, arterial dissection and infarction, is reduced compared with a contrast enhanced study. HISTORY: left flank pain, left anterior rib pain COMPARISON: No prior studies are available for comparison. FINDINGS: Cardiomegaly is noted., Spleen and bilateral kidneys demonstrate normal density. There is no obstructive uropathy. There is mild degree diffuse thickening of bilateral adrenal glands. Urinary bladder is partially filled. There is no free fluid or free air. Gallbladder is unremarkable. Nondilated loops of small bowel are noted some of them containing fluid. Appendix is normal. Colon is unremarkable. Moderate amount of residual stool is noted. IMPRESSION: Moderate degree residual stool Diffuse thickening of bilateral adrenal glands most likely represent adrenal hyperplasia. Cardiomegaly. Transcribed By: UBC Dictated By: KENNY LAY Electronically Authenticated By: KENNY LAY Signed Date/Time: 01/04/181899 DD/ 99 TD/TT: 01/04/181899 - Differential Diagnosis PE, renal colic, ACS, pericarditis Critical care attestation.: If time is entered above; I have spent that time in minutes in the direct care of this critically ill patient, excluding procedure time. ED Disposition Clinical Impression: Chest pain, Chronic renal insufficiency Disposition: OP ADMIT IP TO THIS HOSP Is pt being admited?: Yes Does the pt Need Aspirin: No (renal insufficiency) Condition: Stable Instructions: Chest Pain (ED) Referrals: BENJAMIN STEVENSON MD [Primary Care Provider] - 3-5 Days Time of Disposition: 00:22 (hospitalist paged)
--- NOTE | 2018-01-04 23:02 | Cat Scan Report ---
FINAL REPORT PROCEDURE: CT ABDOMEN PELVIS WO CON TECHNIQUE: Computerized axial tomography of the abdomen and pelvis was performed without intravenous contrast. This study is performed without intravascular contrast material and its sensitivity for abdominal and pelvic pathology, including neoplasms, inflammation, abscess, free fluid, thrombosis, arterial dissection and infarction, is reduced compared with a contrast enhanced study. HISTORY: left flank pain, left anterior rib pain COMPARISON: No prior studies are available for comparison. FINDINGS: Cardiomegaly is noted., Spleen and bilateral kidneys demonstrate normal density. There is no obstructive uropathy. There is mild degree diffuse thickening of bilateral adrenal glands. Urinary bladder is partially filled. There is no free fluid or free air. Gallbladder is unremarkable. Nondilated loops of small bowel are noted some of them containing fluid. Appendix is normal. Colon is unremarkable. Moderate amount of residual stool is noted. IMPRESSION: Moderate degree residual stool Diffuse thickening of bilateral adrenal glands most likely represent adrenal hyperplasia. Cardiomegaly.
[2018-01-04] MEDS ORDERED: PLAVIX PO ONE (23:12)
[2018-01-04] MEDS ORDERED: NITRO-BID 2% TP ONE (23:12)
--- NOTE | 2018-01-05 00:07 | Nuclear Medicine Report ---
FINAL REPORT PROCEDURE: NM LUNG SCAN PERF/VENT TECHNIQUE: Five mCi Tc-99m MAA was injected IV for pulmonary perfusion imaging in multiple projections. Fifteen mCi xenon 133 gas was inhaled for pulmonary ventilation imaging in multiple projections. Injection site: RIGHT antecubital fossa. CPT 30550 HISTORY: left chest pain COMPARISON: No prior studies are available for comparison. FINDINGS: Perfusion: No defects . Ventilation: No defects . IMPRESSION: Normal Examination
[2018-01-05] MEDS ORDERED: MORPHINE IV PRN ×2 (02:22→02:32)
[2018-01-05] MEDS ORDERED: MILK OF MAGNESIA PO PRN (02:22)
[2018-01-05] MEDS ORDERED: DULCOLAX PR PRN (02:22)
[2018-01-05] MEDS ORDERED: D50W (25GM) Syringe IV PRN (02:22)
[2018-01-05] MEDS ORDERED: ZOFRAN IV PRN (02:22)
[2018-01-05] MEDS ORDERED: TYLENOL PO PRN (02:22)
--- NOTE | 2018-01-05 02:29 | History and Physical Report ---
History of Present Illness Date of examination: 01/05/18 History of present illness: 42-year-old man with a history of hypertension, diabetes, CHF, coronary artery disease,cva, so the emergency room with complaints of chest pain that started 4 days ago. Pain is in the left substernal area which she describes a sharp burning sensation, was intermittent initially but has now become constant, intensity 6/10, can't identify exacerbating or relieving factors. Advanced due to nausea, no shortness of breath, diaphoresis or palpitation Review Of Systems: Constitutional: no weight loss Ears, eyes, nose, mouth and throat: no nasal congestion, no nasal discharge, no sinus pressure, blurry vision, diplopia Neck: No neck pain or rigidity. Cardiovascular: No palpitations Respiratory: No shortness of breath, cough Gastrointestinal: No abdominal pain, hematochezia Genitourinary : no dysuria, frequency , hematuria Musculoskeletal: no muscle ache Integumentary: no rash, no pruritis Neurological: no parathesias, focal weakness Endocrine: no cold or heat intolerance, no polyuria or polydipsia Hematologic/Lymphatic: no easy bruising, no easy bleeding, no gland swelling Allergic/Immunologic: no urticaria, no angioedema. PAST MEDICAL HISTORY:hypertension, diabetes, CHF, coronary artery disease, CVA PAST SURGICAL HISTORY:none FAMILY HISTORY:hypertension SOCIAL HISTORY: Smokes half pack a day, no alcohol or drugs Medications and Allergies Allergies Allergy/AdvReac Type Severity Reaction Status Date / Time No Known Allergies Allergy Verified 10/02/17 18:06 Home Medications Medication Instructions Recorded Confirmed Last Taken Type Aspirin [Aspirin BABY CHEW TAB] 81 mg PO QDAY #30 tab.chew 09/29/17 11/05/1704/17 Rx 81 mg Carvedilol [Coreg] 12.5 mg PO BID #60 tablet 09/29/17 11/05/17 11/05/17 Rx 12.5 mg cloNIDine [Catapres] 0.1 mg PO Q8H #90 tablet 09/29/17 11/05/17 11/05/17 Rx hydrALAZINE [Apresoline TAB] 100 mg PO Q8HR #90 tab 09/29/17 11/05/17 11/05/17 Rx 100 mg Furosemide [Lasix TAB] 40 mg PO QDAY 11/05/17 11/05/17 11/05/17 History Potassium Chloride [Klor-Con 10] 10 meq PO DAILY 11/05/17 11/05/17 11/05/17 History 10 MEQ Pravastatin [Pravachol] 40 mg PO QHS 11/05/17 11/05/17 11/05/17 History glipiZIDE [Glipizide] 5 mg PO BIDAC 11/05/17 11/05/17 11/05/17 History 5 mg metFORMIN [Glucophage] 850 mg PO BID 11/05/17 11/05/17 11/05/17 History traMADol [Ultram 50 MG tab] 50 mg PO Q6HR PRN #20 tablet 11/21/17 Unknown Rx Active Meds: Active Medications Acetaminophen (Tylenol) 650 mg PO Q4H PRN PRN Reason: Pain MILD(1-3)/Fever >100.5/TORRES Bisacodyl (Dulcolax) 10 mg AK QDAY PRN PRN Reason: Constipation unrelieved by MOM Dextrose (D50w (25gm) Syringe) 50 ml IV PRN PRN PRN Reason: Hypoglycemia Enoxaparin Sodium (Lovenox) 30 mg SUB-Q QDAY LORAINE Magnesium Hydroxide (Milk Of Magnesia) 30 ml PO Q4H PRN PRN Reason: Constipation Morphine Sulfate (Morphine) 2 mg IV Q4H PRN PRN Reason: Pain, Moderate (4-6) Ondansetron HCl (Zofran) 4 mg IV Q8H PRN PRN Reason: N/V unrelieved by Reglan Exam - Physical Exam Narrative exam: Gen. appearance: Patient lying in bed in no acute distress HEENT: Normocephalic/atraumatic, pupils equal round reactive to light, extra occular movement intact, no scleral icterus, no JVD or thyromegaly or nodule, neck is supple, mucous membrane moist, no erythema or exudate Heart: S1-S2, regular rate and rhythm Lungs: Clear to auscultation bilateral breathing comfortable Abdomen: Positive bowel sounds, nontender, nondistended, no organomegaly Extremities: No edema, cyanosis, clubbing Neuro:: Oriented 3 , cranial nerves II-12 intact, speech, motor intact Skin: No rash, nodules, warm dry - Constitutional Vitals: Temp Pulse Resp BP Pulse Ox 99.2 F 92 H 20 188/116 100 02/03/18 17:14 01/04/18 23:33 01/04/18 17:14 01/04/18 23:33 01/04/18 21:54 Results - Labs CBC & Chem 7: 01/04/18 17:34 01/04/18 17:34 Labs: Abnormal lab results 01/04/18 01/04/18 01/04/18 Range/Units 17:24 17:34 17:34 Hgb 9.8 L (11.8-15.2) gm/dl Hct 30.0 L (35.5-45.6) % MCV 81 L (84-94) fl MCH 27 L (28-32) pg RDW 18.8 H (13.2-15.2) % Lymph % (Auto) 11.1 L (13.4-35.0) % Bee % (Auto) 8.7 H (0.0-7.3) % Lymph # 0.9 L (1.2-5.4) K/mm3 Seg Neutrophils % 76.2 H (40.0-70.0) % Seg Neuts % (Manual) 80.0 H (40.0-70.0) % Lymphocytes % (Manual) 11.0 L (13.4-35.0) % Monocytes % (Manual) 8.0 H (0.0-7.3) % Lymphocytes # (Manual) 0.9 L (1.2-5.4) K/mm3 Sodium (137-145) mmol/L Chloride (98-107) mmol/L BUN (9-20) mg/dL Creatinine (0.8-1.5) mg/dL Glucose (75-100) mg/dL POC Glucose 265 H (70-105) Troponin T 0.115 H* (0.00-0.029) ng/mL Albumin (3.9-5) g/dL 01/04/1818 01/05/18 Range/Units 17:34 20:06 01:21 Hgb (11.8-15.2) gm/dl Hct (35.5-45.6) % MCV (84-94) fl MCH (28-32) pg RDW (13.2-15.2) % Lymph % (Auto) (13.4-35.0) % Bee % (Auto) (0.0-7.3) % Lymph # (1.2-5.4) K/mm3 Seg Neutrophils % (40.0-70.0) % Seg Neuts % (Manual) (40.0-70.0) % Lymphocytes % (Manual) (13.4-35.0) % Monocytes % (Manual) (0.0-7.3) % Lymphocytes # (Manual) (1.2-5.4) K/mm3 Sodium 136 L (137-145) mmol/L Chloride 95.3 L (98-107) mmol/L BUN 31 H (9-20) mg/dL Creatinine 2.2 H (0.8-1.5) mg/dL Glucose 245 H (75-100) mg/dL POC Glucose (70-105) Troponin T 0.125 H* 0.128 H* (0.00-0.029) ng/mL Albumin 3.8 L (3.9-5) g/dL - Imaging and Cardiology EKG: image reviewed Chest x-ray: image reviewed CT scan - abdomen: report reviewed CT scan - pelvis: report reviewed Assessment and Plan Assessment Unstable angina Coronary artery disease Hypertension Diabetes CHF, stable Chronic kidney disease Plan Admit to medicine Check cardiac enzymes, consult cardiology Check fingersticks and initiate insulin sliding scale Continue appropriate outpatient medications DVT prophylaxis
[2018-01-05] MEDS: CATAPRES PO SCH ×3 (06:39→22:55)
[2018-01-05] MEDS: GLUCOTROL PO SCH ×2 (08:59→19:00)
[2018-01-05] MEDS: COREG PO SCH ×2 (08:59→22:55)
[2018-01-05] MEDS: LOVENOX SUB-Q SCH (08:59)
[2018-01-05] MEDS: LASIX PO SCH (08:59)
[2018-01-05] MEDS: BABY ASPIRIN PO SCH (08:59)
[2018-01-05] MEDS ORDERED: LOVENOX SUB-Q SCH (10:00)
--- NOTE | 2018-01-05 11:02 | Consultation ---
History of Present Illness Consult date: 01/05/18 Consult reason: chest pain, elevated troponin History of present illness: 42 YO man with h/o CAD who is currently hospitalized with recurrence of chest pain. He describes chest pain as a sharp sensation in his left lower chest. He has not had any dyspnea, nausea or diaphoresis. He also reports of some tingling sensation in his feet. His troponin was noted to be minimally elevated in the setting of renal failure. He is well known to our service and has had recent cardiac testing. A cardiac catheterization done 09/27/17 showed a chronic total occlusion of the mid right coronary artery with the distal vessel perfused by right to right and [id number] collaterals. Otherwise, mild nonobstructive atherosclerosis of the left coronary system. Echocardiogram 10/02/17 showed left ventricular systolic function well preserved with ejection fraction 50-55%. ECG reveals NSR with left atrial enlargement and LVH Past History Past Medical History: CAD, diabetes, hypertension, renal failure Social history: smoking Family history: hypertension Medications and Allergies Allergies Allergy/AdvReac Type Severity Reaction Status Date / Time No Known Allergies Allergy Verified 10/02/17 18:06 Home Medications Medication Instructions Recorded Confirmed Last Taken Type Aspirin [Aspirin BABY CHEW TAB] 81 mg PO QDAY #30 tab.chew 09/29/17 11/05/1704/17 Rx 81 mg Carvedilol [Coreg] 12.5 mg PO BID #60 tablet 09/29/17 11/05/17 11/05/17 Rx 12.5 mg cloNIDine [Catapres] 0.1 mg PO Q8H #90 tablet 09/29/17 11/05/17 11/05/17 Rx hydrALAZINE [Apresoline TAB] 100 mg PO Q8HR #90 tab 09/29/17 11/05/17 11/05/17 Rx 100 mg Furosemide [Lasix TAB] 40 mg PO QDAY 11/05/17 11/05/17 11/05/17 History Potassium Chloride [Klor-Con 10] 10 meq PO DAILY 11/05/17 11/05/17 11/05/17 History 10 MEQ Pravastatin [Pravachol] 40 mg PO QHS 11/05/17 11/05/17 11/05/17 History glipiZIDE [Glipizide] 5 mg PO BIDAC 11/05/17 11/05/1717 History 5 mg metFORMIN [Glucophage] 850 mg PO BID 11/05/17 11/05/17 11/05/17 History traMADol [Ultram 50 MG tab] 50 mg PO Q6HR PRN #20 tablet 11/21/17 Unknown Rx Active Meds: Active Medications Acetaminophen (Tylenol) 650 mg PO Q4H PRN PRN Reason: Pain MILD(1-3)/Fever >100.5/TORRES Aspirin (Baby Aspirin) 81 mg PO QDAY [facility] Last Admin: 01/05/18 08:59 Dose: 81 mg Bisacodyl (Dulcolax) 10 mg UT QDAY PRN PRN Reason: Constipation unrelieved by MOM Carvedilol (Coreg) 12.5 mg PO BID [facility] Last Admin: 01/05/18 08:59 Dose: 12.5 mg Clonidine HCl (Catapres) 0.1 mg PO Q8HR [facility] Last Admin: 01/05/18 06:39 Dose: 0.1 mg Dextrose (D50w (25gm) Syringe) 50 ml IV PRN PRN PRN Reason: Hypoglycemia Enoxaparin Sodium (Lovenox) 40 mg SUB-Q QDAY@1000 [facility] Last Admin: 01/05/18 08:59 Dose: 40 mg Furosemide (Lasix) 40 mg PO QDAY [facility] Last Admin: 01/05/18 08:59 Dose: 40 mg Glipizide (Glucotrol) 5 mg PO BIDDIAB [facility] Last Admin: 01/05/18 08:59 Dose: 5 mg Insulin Aspart (Novolog) 0 units SUB-Q ACHS [facility] PRN Reason: Protocol Magnesium Hydroxide (Milk Of Magnesia) 30 ml PO Q4H PRN PRN Reason: Constipation Morphine Sulfate (Morphine) 2 mg IV Q4H PRN PRN Reason: Pain, Moderate (4-6) Ondansetron HCl (Zofran) 4 mg IV Q8H PRN PRN Reason: N/V unrelieved by Reglan Pravastatin Sodium (Pravachol) 40 mg PO QHS [facility] Review of Systems All systems: negative (per hpi) Physical Examination Vital Signs Temp Pulse Resp BP Pulse Ox 99.2 F 89 20 187/111 97 01/04/18 17:14 01/04/18 17:14 01/04/18 17:14 01/04/18 17:14 01/04/18 17:14 General appearance: no acute distress Cardiac: Positive: Reg Rate and Rhythm. Negative: Audible Murmur Lungs: Positive: clear to auscultation Neuro: Positive: Grossly Intact Abdomen: Positive: Soft, Active Bowel Sounds Extremities: Absent: edema Results 01/04/18 17:34 01/04/18 17:34 Cardiac Enzymes 01/04/18 Range/Units 17:34 AST 14 (5-40) units/L Lipids 01/04/18 Range/Units 17:34 Triglycerides 51 (2-149) mg/dL Cholesterol 109 (50-199) mg/dL HDL Cholesterol 42 (40-59) mg/dL Cholesterol/HDL Ratio 2.59 % CBC 01/04/18 Range/Units 17:34 WBC 8.3 (4.5-11.0) K/mm3 RBC 3.69 (3.65-5.03) M/mm3 Hgb 9.8 L (11.8-15.2) gm/dl Hct 30.0 L (35.5-45.6) % Plt Count 236 (140-440) K/mm3 Lymph # 0.9 L (1.2-5.4) K/mm3 [place] # 0.7 (0.0-0.8) K/mm3 Eos # 0.3 (0.0-0.4) K/mm3 Baso # 0.1 (0.0-0.1) K/mm3 Comprehensive Metabolic Panel 01/04/18 01/04/18 Range/Units 17:34 17:34 Sodium Cancelled 136 L Potassium Cancelled 3.7 Chloride Cancelled 95.3 L Carbon Dioxide Cancelled 26 BUN Cancelled 31 H Creatinine Cancelled 2.2 H Glucose Cancelled 245 H Calcium Cancelled 8.7 AST 14 (5-40) units/L ALT 14 (7-56) units/L Alkaline Phosphatase 71 (35-129) units/L Total Protein 7.0 (6.3-8.2) g/dL Albumin 3.8 L (3.9-5) g/dL Assessment and Plan Atypical Chest pain Coronary artery disease Recent Right/LHC findings: elevated left and right sided filling pressures chronic total occlusion of the mid right coronary artery, with the distal vessel perfused by right to right and [id number] collaterals. otherwise, mild nonobstructive atherosclerosis of the left coronary system. echocardiogram 10/02/17 shows left ventricular systolic function well preserved with ejection fraction 50-55% medical therapy recommended Non-specific troponin abnormality in the setting of renal failure Diabetes mellitus Systemic Hypertension Renal failure Recommend: Maximize medical therapy for CAD - titrate beta georges to maximal tolerated dose and add long acting nitrate. Add Ranexa if he has future episodes of chest pain. Continue DAPT and statin.
[2018-01-05] MEDS: NOVOLOG SUB-Q SCH ×3 (13:48→22:55)
--- NOTE | 2018-01-05 16:41 | Event Note ---
Date: 01/05/18 Patient Seen and evaluated medical records reviewed Admitted this morning with chest pain, very mild improvement, cardiology evaluated the patient Optimize the medications, advised to add Ranexa if no improvement of symptoms Continue current management and closely monitor Possible discharge in 1-2 days if stable Plan of care is reviewed with the patient and his nurse at the side
[2018-01-05] MEDS: IMDUR PO SCH (20:12)
[2018-01-05] MEDS: PRAVACHOL PO SCH (22:55)
[2018-01-06] MEDS: CATAPRES PO SCH ×3 (06:28→21:02)
[2018-01-06 06:48] LABS: Basophils # (Auto) 0.1 K/mm3 (0.0-0.1); Basophils % (Auto) 0.8 % (0.0-1.8); Eosinophils # (Auto) 0.4 K/mm3 (0.0-0.4); Eosinophils % (Auto) 4.1 % (0.0-4.3); Hematocrit 27.1 % (35.5-45.6); Lymphocytes # (Auto) 1.5 K/mm3 (1.2-5.4); Lymphocytes % (Auto) 17.9 % (13.4-35.0); Mean Corpuscular HGB Conc 33 % (32-34); Mean Corpuscular Hemoglobin 27 pg (28-32); Mean Corpuscular Volume 82 fl (84-94); Monocytes # (Auto) 1.1 K/mm3 (0.0-0.8); Monocytes % (Auto) 12.5 % (0.0-7.3); Platelet Count 213 K/mm3 (140-440); Red Blood Count 3.32 M/mm3 (3.65-5.03); Red Cell Distribution Width 18.5 % (13.2-15.2)
[2018-01-06 07:23] LABS: Calcium 8.5 mg/dL (8.4-10.2)
--- NOTE | 2018-01-06 07:51 | XRay Report ---
FINAL REPORT EXAM: XR CHEST 1V AP HISTORY: left chest pain TECHNIQUE: Chest, portable PRIORS: None. FINDINGS: The heart size is mildly enlarged. Pulmonary vasculature is not congested. The lungs are clear. There are no pleural effusion seen. There is no evidence of pneumothorax. IMPRESSION: Mild cardiomegaly. There is no acute abnormality identified.
--- NOTE | 2018-01-06 10:11 | Progress Note ---
Assessment and Plan Assessment and plan: --Atypical chest pain; improved Continue current management --Hypokalemia; replace per protocol and monitor levels --Coronary artery disease ;Recent heart Total occlusion midright coronary artery with collaterals Mild Non-obstructive coronary artery disease , Continue current management --Ascending aortic enlargement 4.3 cm, follow CT chest monitor ascending aortic enlargement, cardiology following --Nonspecific elevation of troponins probably secondary to renal failure, closely monitor --Acute on chronic kidney disease stage III; vasomotor nephropathy, closely monitor renal function and avoid nephrotoxic medications, Consult nephrology if no improvement --Type 2 diabetes mellitus; Accu-Chek sliding scale coverage and ADA diet and oral hypoglycemics --Congestive heart failure; LVEF 50-55% on echo 2 months ago, probably diastolic dysfunction Gentle diuresis as needed --DVT prophylaxis; Lovenox --Closely monitor the patient on just the management as needed Plan of care is reviewed with the patient and his nurse Disposition; possible discharge in 1-2 days if stable and cleared by cardiology History Interval history: Patient seen and evaluated medical records reviewed Complains of some pleuritic chest pain Anxious to go home No new events reported by the nursing staff Vital signs reviewed Hospitalist Physical - Constitutional Vitals: Temp Pulse Resp BP Pulse Ox 98.7 F 80 18 163/102 96 01/06/18 08:02 01/06/18 08:02 01/06/18 08:02 01/06/18 08:02 01/06/18 08:02 General appearance: Present: no acute distress, well-nourished - EENT Eyes: Present: PERRL, EOM intact - Neck Neck: Present: supple, normal ROM - Respiratory Respiratory effort: normal Respiratory: bilateral: diminished, negative: rales, rhonchi, wheezing - Cardiovascular Rhythm: regular Heart Sounds: Present: S1 & S2 - Extremities Extremities: no ischemia, No edema - Abdominal General gastrointestinal: soft, non-tender, non-distended, normal bowel sounds - Integumentary Integumentary: Present: clear, warm - Psychiatric Psychiatric: appropriate mood/affect, cooperative - Neurologic Neurologic: CNII-XII intact, moves all extremities Results - Labs CBC & Chem 7: 01/06/18 06:09 01/06/18 06:09 Labs: Laboratory Last Values WBC 8.7 K/mm3 (4.5-11.0) 01/06/18 06:09 RBC 3.32 M/mm3 (3.65-5.03) L 01/06/18 06:09 Hgb 9.0 gm/dl (11.8-15.2) L 01/06/18 06:09 Hct 27.1 % (35.5-45.6) L 01/06/18 06:09 MCV 82 fl (84-94) L 01/06/18 06:09 MCH 27 pg (28-32) L 01/06/18 06:09 MCHC 33 % (32-34) 01/06/18 06:09 RDW 18.5 % (13.2-15.2) H 01/06/18 06:09 Plt Count 213 K/mm3 (140-440) 01/06/18 06:09 Lymph % (Auto) 17.9 % (13.4-35.0) 01/06/18 06:09 [place] % (Auto) 12.5 % (0.0-7.3) H 01/06/18 06:09 Eos % (Auto) 4.1 % (0.0-4.3) 01/06/18 06:09 Baso % (Auto) 0.8 % (0.0-1.8) 01/06/18 06:09 Lymph # 1.5 K/mm3 (1.2-5.4) 01/06/18 06:09 [place] # 1.1 K/mm3 (0.0-0.8) H 01/06/18 06:09 Eos # 0.4 K/mm3 (0.0-0.4) 01/06/18 06:09 Baso # 0.1 K/mm3 (0.0-0.1) 01/06/18 06:09 Add Manual Diff Complete 01/04/18 17:34 Total Counted 100 01/04/18 17:34 Seg Neutrophils % 64.7 % (40.0-70.0) 01/06/18 06:09 Seg Neuts % (Manual) 80.0 % (40.0-70.0) H 01/04/18 17:34 Band Neutrophils % 0 % 01/04/18 17:34 Lymphocytes % (Manual) 11.0 % (13.4-35.0) L 01/04/18 17:34 Reactive Lymphs % (Man) 0 % 01/04/18 17:34 Monocytes % (Manual) 8.0 % (0.0-7.3) H 01/04/18 17:34 Eosinophils % (Manual) 1.0 % (0.0-4.3) 01/04/18 17:34 Basophils % (Manual) 0 % (0.0-1.8) 01/04/18 17:34 Metamyelocytes % 0 % 01/04/18 17:34 Myelocytes % 0 % 01/04/18 17:34 Promyelocytes % 0 % 01/04/18 17:34 Blast Cells % 0 % 01/04/18 17:34 Nucleated RBC % Not Reportable 01/04/18 17:34 Seg Neutrophils # 5.6 K/mm3 (1.8-7.7) 01/06/18 06:09 Seg Neutrophils # Man 6.6 K/mm3 (1.8-7.7) 01/04/18 17:34 Band Neutrophils # 0.0 K/mm3 01/04/18 17:34 Lymphocytes # (Manual) 0.9 K/mm3 (1.2-5.4) L 01/04/18 17:34 Abs React Lymphs (Man) 0.0 K/mm3 01/04/18 17:34 Monocytes # (Manual) 0.7 K/mm3 (0.0-0.8) 01/04/18 17:34 Eosinophils # (Manual) 0.1 K/mm3 (0.0-0.4) 01/04/18 17:34 Basophils # (Manual) 0.0 K/mm3 (0.0-0.1) 01/04/18 17:34 Metamyelocytes # 0.0 K/mm3 01/04/18 17:34 Myelocytes # 0.0 K/mm3 01/04/18 17:34 Promyelocytes # 0.0 K/mm3 01/04/18 17:34 Blast Cells # 0.0 K/mm3 01/04/18 17:34 WBC Morphology Not Reportable 01/04/18 17:34 Hypersegmented Neuts Not Reportable 01/04/18 17:34 Hyposegmented Neuts Not Reportable 01/04/18 17:34 Hypogranular Neuts Not Reportable 01/04/18 17:34 Smudge Cells Not Reportable 01/04/18 17:34 Toxic Granulation Not Reportable 01/04/18 17:34 Toxic Vacuolation Not Reportable 01/04/18 17:34 Dohle Bodies Not Reportable 01/04/18 17:34 Pelger-Huet Anomaly Not Reportable 01/04/18 17:34 Mone Rods Not Reportable 01/04/18 17:34 Platelet Estimate Consistent w auto 01/04/18 17:34 Clumped Platelets Not Reportable 01/04/18 17:34 Plt Clumps, EDTA Not Reportable 01/04/18 17:34 Large Platelets Not Reportable 01/04/18 17:34 Giant Platelets Not Reportable 01/04/18 17:34 Platelet Satelliting Not Reportable 01/04/18 17:34 Plt Morphology Comment Not Reportable 01/04/18 17:34 RBC Morphology Not Reportable 01/04/18 17:34 Dimorphic RBCs Not Reportable 01/04/18 17:34 Polychromasia Not Reportable 01/04/18 17:34 Hypochromasia Not Reportable 01/04/18 17:34 Poikilocytosis Not Reportable 01/04/18 17:34 Anisocytosis 1+ 01/04/18 17:34 Microcytosis Not Reportable 01/04/18 17:34 Macrocytosis Not Reportable 01/04/18 17:34 Spherocytes Not Reportable 01/04/18 17:34 Pappenheimer Bodies Not Reportable 01/04/18 17:34 Sickle Cells Not Reportable 01/04/18 17:34 Target Cells Not Reportable 01/04/18 17:34 Tear Drop Cells Not Reportable 01/04/18 17:34 Ovalocytes Not Reportable 01/04/18 17:34 Helmet Cells Not Reportable 01/04/18 17:34 [place] Bodies Not Reportable 01/04/18 17:34 [place] Rings Not Reportable 01/04/18 17:34 [place] Cells Not Reportable 01/04/18 17:34 Bite Cells Not Reportable 01/04/18 17:34 Crenated Cell Not Reportable 01/04/18 17:34 Elliptocytes Not Reportable 01/04/18 17:34 Acanthocytes (Spur) Not Reportable 01/04/18 17:34 Rouleaux Not Reportable 01/04/18 17:34 Hemoglobin C Crystals Not Reportable 01/04/18 17:34 Schistocytes Not Reportable 01/04/18 17:34 Malaria parasites Not Reportable 01/04/18 17:34 Rich Bodies Not Reportable 01/04/18 17:34 Hem Pathologist Commnt No 01/04/18 17:34 Sodium 141 mmol/L (137-145) 01/06/18 06:09 Potassium 3.4 mmol/L (3.6-5.0) L 01/06/18 06:09 Chloride 100.1 mmol/L (98-107) 01/06/18 06:09 Carbon Dioxide 27 mmol/L (22-30) 01/06/18 06:09 Anion Gap 17 mmol/L 01/06/18 06:09 BUN 37 mg/dL (9-20) H 01/06/18 06:09 Creatinine 2.3 mg/dL (0.8-1.5) H 01/06/18 06:09 Estimated GFR 38 ml/min 01/06/18 06:09 BUN/Creatinine Ratio 16 % 01/06/18 06:09 Glucose 111 mg/dL (75-100) H 01/06/18 06:09 POC Glucose 97 (70-105) 01/06/18 08:09 Calcium 8.5 mg/dL (8.4-10.2) 01/06/18 06:09 Total Bilirubin 0.30 mg/dL (0.1-1.2) 01/04/18 17:34 AST 14 units/L (5-40) 01/04/18 17:34 ALT 14 units/L (7-56) 01/04/18 17:34 Alkaline Phosphatase 71 units/L (35-129) 01/04/18 17:34 Troponin T 0.128 ng/mL (0.00-0.029) H* 01/05/18 01:21 Total Protein 7.0 g/dL (6.3-8.2) 01/04/18 17:34 Albumin 3.8 g/dL (3.9-5) L 01/04/18 17:34 Albumin/Globulin Ratio 1.2 % 01/04/18 17:34 Triglycerides 51 mg/dL (2-149) 01/04/18 17:34 Cholesterol 109 mg/dL (50-199) 01/04/18 17:34 LDL Cholesterol Direct 57 mg/dL (50-130) 01/04/18 17:34 HDL Cholesterol 42 mg/dL (40-59) 01/04/18 17:34 Cholesterol/HDL Ratio 2.59 % 01/04/18 17:34 Lipase 40 units/L (13-60) 01/04/18 17:34 Urine Color Yellow (Yellow) 01/04/18 Unknown Urine Turbidity Clear (Clear) 01/04/18 Unknown Urine pH 5.0 (5.0-7.0) 01/04/18 Unknown Ur Specific [place] 1.013 (1.003-1.030) 01/04/18 Unknown Urine Protein 100 mg/dl mg/dL (Negative) 01/04/18 Unknown Urine Glucose (UA) 150 mg/dL (Negative) 01/04/18 Unknown Urine Ketones Neg mg/dL (Negative) 01/04/18 Unknown Urine Blood Sm (Negative) 01/04/18 Unknown Urine Nitrite Neg (Negative) 01/04/18 Unknown Urine Bilirubin Neg (Negative) 01/04/18 Unknown Urine Urobilinogen < 2.0 mg/dL (<2.0) 01/04/18 Unknown Ur Leukocyte Esterase Neg (Negative) 01/04/18 Unknown Urine WBC (Auto) 1.0 /HPF (0.0-6.0) 01/04/18 Unknown Urine RBC (Auto) 1.0 /HPF (0.0-6.0) 01/04/18 Unknown Urine Bacteria (Auto) 1+ /HPF (Negative) 01/04/18 Unknown Urine Mucus Few /HPF 01/04/18 Unknown
[2018-01-06] MEDS: COREG PO SCH ×2 (10:13→21:02)
[2018-01-06] MEDS: LASIX PO SCH (10:13)
[2018-01-06] MEDS: LOVENOX SUB-Q SCH (10:13)
[2018-01-06] MEDS: GLUCOTROL PO SCH ×2 (10:13→17:41)
[2018-01-06] MEDS: IMDUR PO SCH (10:14)
[2018-01-06] MEDS: BABY ASPIRIN PO SCH (10:14)
[2018-01-06] MEDS: NOVOLOG SUB-Q SCH ×4 (10:15→21:02)
[2018-01-06] MEDS ORDERED: K-DUR PO NR (10:30)
--- NOTE | 2018-01-06 11:32 | Progress Note ---
Assessment and Plan Atypical Chest pain Coronary artery disease Recent Right/C findings: elevated left and right sided filling pressures chronic total occlusion of the mid right coronary artery, with the distal vessel perfused by right to right and [id number] collaterals. otherwise, mild nonobstructive atherosclerosis of the left coronary system. echocardiogram 10/02/17 shows left ventricular systolic function well preserved with ejection fraction 50-55% medical therapy recommended Non-specific troponin abnormality in the setting of renal failure Diabetes mellitus Systemic Hypertension Renal failure Recommend: Maximize medical therapy for CAD. CTA for evaluation of enlarged ascending aorta. Subjective Date of service: 01/06/18 Interval history: No cardiac reports overnight. Objective Vital Signs Temp Pulse Resp BP BP Pulse Ox 01/06/18 10:14 87 01/06/18 10:13 87 01/06/18 08:02 98.7 F 80 18 163/102 96 01/06/18 06:28 82 163/108 01/06/18 04:16 98.5 F 82 20 163/108 97 01/06/18 03:00 86 01/06/18 00:59 98.7 F 85 01/06/18 00:11 98.7 F 18 167/105 01/05/18 22:55 84 168/105 01/05/18 22:00 98 01/05/18 20:45 20 01/05/18 20:12 80 01/05/18 20:02 97.5 F L 18 179/116 01/05/18 19:00 83 01/05/18 17:12 98.5 F 74 20 158/104 97 01/05/18 15:36 98.5 F 30 H 158/104 01/05/18 14:27 97 01/05/18 13:53 97.9 F 77 172/113 177/113 - Physical Examination General: No Apparent Distress Cardiac: Positive: Reg Rate and Rhythm Neuro: Positive: Grossly Intact Abdomen: Positive: Soft, Active Bowel Sounds Extremities: Absent: edema - Labs and Meds CBC 01/06/18 Range/Units 06:09 WBC 8.7 (4.5-11.0) K/mm3 RBC 3.32 L (3.65-5.03) M/mm3 Hgb 9.0 L (11.8-15.2) gm/dl Hct 27.1 L (35.5-45.6) % Plt Count 213 (140-440) K/mm3 Lymph # 1.5 (1.2-5.4) K/mm3 [place] # 1.1 H (0.0-0.8) K/mm3 Eos # 0.4 (0.0-0.4) K/mm3 Baso # 0.1 (0.0-0.1) K/mm3 Comprehensive Metabolic Panel 01/06/18 Range/Units 06:09 Sodium 141 (137-145) mmol/L Potassium 3.4 L (3.6-5.0) mmol/L Chloride 100.1 (98-107) mmol/L Carbon Dioxide 27 (22-30) mmol/L BUN 37 H (9-20) mg/dL Creatinine 2.3 H (0.8-1.5) mg/dL Glucose 111 H (75-100) mg/dL Calcium 8.5 (8.4-10.2) mg/dL - Imaging and Cardiology EKG: image reviewed
[2018-01-06] MEDS: PRAVACHOL PO SCH (21:02)
[2018-01-07] MEDS: CATAPRES PO SCH (05:05)
[2018-01-07 05:34] VITALS: BP 165/101
[2018-01-07 07:12] LABS: Basophils # (Auto) 0.1 K/mm3 (0.0-0.1); Basophils % (Auto) 0.8 % (0.0-1.8); Eosinophils # (Auto) 0.3 K/mm3 (0.0-0.4); Eosinophils % (Auto) 3.6 % (0.0-4.3); Hematocrit 27.2 % (35.5-45.6); Hemoglobin 9.2 gm/dl (11.8-15.2); Lymphocytes # (Auto) 1.5 K/mm3 (1.2-5.4); Lymphocytes % (Auto) 16.2 % (13.4-35.0); Mean Corpuscular HGB Conc 34 % (32-34); Mean Corpuscular Hemoglobin 27 pg (28-32); Mean Corpuscular Volume 81 fl (84-94); Monocytes # (Auto) 1.2 K/mm3 (0.0-0.8); Monocytes % (Auto) 12.2 % (0.0-7.3); Platelet Count 215 K/mm3 (140-440); Red Blood Count 3.35 M/mm3 (3.65-5.03); Red Cell Distribution Width 18.3 % (13.2-15.2)
[2018-01-07 07:29] LABS: Calcium 8.5 mg/dL (8.4-10.2); Magnesium 2.4 mg/dL (1.7-2.3)
--- NOTE | 2018-01-07 07:54 | Cat Scan Report ---
CT CHEST WITHOUT CONTRAST: HISTORY: Enlarged ascending aorta, aortic aneurysm. COMPARISON: none. TECHNIQUE: Helical CT in 1.25mm intervals without IV contrast. Sagittal and coronal reformatted images. FINDINGS: Thyroid gland: Normal. Tracheobronchial tree: Normal. Esophagus: Normal. Heart: Mild cardiomegaly is evident. Mild calcific plaques in the left anterior descending artery. Pericardium: Trace pericardial fluid. No pericardial nodularity or calcifications. Mediastinum: The ascending aorta measures maximum diameter of 4.5 cm. The descending thoracic aorta measures 3.4 cm at the same level. The aortic arch measures 3.7 cm. No significant atherosclerotic plaques are identified within the aorta. No signs of dissection although IV contrast could not be administered secondary to renal function. Lung [place]: Adequately aerated. No parenchymal lung diseases appreciate it. Mild pulmonary venous congestion is suspected. Pleural Spaces: Normal. Musculoskeletal: Mild thoracic spondylosis. No fracture or suspicious bony lesion. IMPRESSION: The ascending aorta measures a maximum diameter 4.5 cm. Mild cardiomegaly and pulmonary venous congestion. Trace pericardial fluid.
--- NOTE | 2018-01-07 09:56 | Progress Note ---
Assessment and Plan Assessment and plan: --Atypical chest pain; improved Continue current management --Hypokalemia; replace per protocol and monitor levels --Coronary artery disease ;Recent heart Total occlusion midright coronary artery with collaterals Mild Non-obstructive coronary artery disease , Continue current management --Ascending aortic enlargement 4.3 cm, follow CT chest monitor ascending aortic enlargement, cardiology following --Nonspecific elevation of troponins probably secondary to renal failure, closely monitor --Acute on chronic kidney disease stage III; vasomotor nephropathy, closely monitor renal function and avoid nephrotoxic medications, Consult nephrology if no improvement --Type 2 diabetes mellitus; Accu-Chek sliding scale coverage and ADA diet and oral hypoglycemics --Congestive heart failure; LVEF 50-55% on echo 2 months ago, probably diastolic dysfunction Gentle diuresis as needed --DVT prophylaxis; Lovenox --Closely monitor the patient on just the management as needed Plan of care is reviewed with the patient and his nurse Disposition; possible discharge in 1-2 days if stable and cleared by cardiology History Interval history: Review of systems Constitutional: No fevers, no malaise, no joint pains CVS: No chest pain, no orthopnea, no dyspnea on exertion, no pedal edema GI: No abdominal pain, no diarrhea, no vomiting, no constipation Respiratory: No shortness of breath, no wheezing, no coughing Hospitalist Physical - Physical exam Narrative exam: General.: Appears well, no distress, nontoxic HEENT: Moist mucous membranes, extraocular muscles intact, no lymphadenopathy Neck: supple Cardiac: S1-S2 heard Lungs: clear to auscultation bilaterally Abdomen: soft , nontender, nondistended, bowel sounds positive Extremities: no edema clubbing or cyanosis Skin: no rash or lesions Neurologic: no gross focal deficits Psych: appropriate behavior, appropriate mood, corporative, judgment intact - Constitutional Vitals: Temp Pulse Resp BP Pulse Ox 98.3 F 74 8 L 168/108 97 01/07/18 04:27 01/07/18 04:25 01/07/18 04:27 01/07/18 04:27 01/07/18 04:25 General appearance: Present: no acute distress, well-nourished Results - Labs CBC & Chem 7: 01/07/18 06:27 01/07/18 06:27 Labs: Laboratory Last Values WBC 9.4 K/mm3 (4.5-11.0) 01/07/18 06: RBC 3.35 M/mm3 (3.65-5.03) L 01/07/18 06: Hgb 9.2 gm/dl (11.8-15.2) L 01/07/18 06: Hct 27.2 % (35.5-45.6) L 01/07/18 06: MCV 81 fl (84-94) L 01/07/18 06: MCH 27 pg (28-32) L 01/07/18 06: MCHC 34 % (32-34) 01/07/18: RDW 18.3 % (13.2-15.2) H 01/07/18: Plt Count 215 K/mm3 (140-440) 01/07/18 06: Lymph % (Auto) 16.2 % (13.4-35.0) 01/07/18 06: [place] % (Auto) 12.2 % (0.0-7.3) H 01/07/18 06: Eos % (Auto) 3.6 % (0.0-4.3) 01/07/18 06: Baso % (Auto) 0.8 % (0.0-1.8) 01/07/18 06: Lymph # 1.5 K/mm3 (1.2-5.4) 01/07/18 06:27 [place] # 1.2 K/mm3 (0.0-0.8) H 01/07/18 06: Eos # 0.3 K/mm3 (0.0-0.4) 01/07/18 06: Baso # 0.1 K/mm3 (0.0-0.1) 01/07/18 06: Add Manual Diff Complete 01/04/18 17:34 Total Counted 100 01/04/18 17:34 Seg Neutrophils % 67.2 % (40.0-70.0) 01/07/18 06:27 Seg Neuts % (Manual) 80.0 % (40.0-70.0) H 01/04/18 17:34 Band Neutrophils % 0 % 01/04/18 17:34 Lymphocytes % (Manual) 11.0 % (13.4-35.0) L 01/04/18 17:34 Reactive Lymphs % (Man) 0 % 01/04/18 17:34 Monocytes % (Manual) 8.0 % (0.0-7.3) H 01/04/18 17:34 Eosinophils % (Manual) 1.0 % (0.0-4.3) 01/04/18 17:34 Basophils % (Manual) 0 % (0.0-1.8) 01/04/18 17:34 Metamyelocytes % 0 % 01/04/18 17:34 Myelocytes % 0 % 01/04/18 17:34 Promyelocytes % 0 % 01/04/18 17:34 Blast Cells % 0 % 01/04/18 17:34 Nucleated RBC % Not Reportable 01/04/18 17:34 Seg Neutrophils # 6.3 K/mm3 (1.8-7.7) 01/07/18 06:27 Seg Neutrophils # Man 6.6 K/mm3 (1.8-7.7) 01/04/18 17:34 Band Neutrophils # 0.0 K/mm3 01/04/18 17:34 Lymphocytes # (Manual) 0.9 K/mm3 (1.2-5.4) L 01/04/18 17:34 Abs React Lymphs (Man) 0.0 K/mm3 01/04/18 17:34 Monocytes # (Manual) 0.7 K/mm3 (0.0-0.8) 01/04/18 17:34 Eosinophils # (Manual) 0.1 K/mm3 (0.0-0.4) 01/04/18 17:34 Basophils # (Manual) 0.0 K/mm3 (0.0-0.1) 01/04/18 17:34 Metamyelocytes # 0.0 K/mm3 01/04/18 17:34 Myelocytes # 0.0 K/mm3 01/04/18 17:34 Promyelocytes # 0.0 K/mm3 01/04/18 17:34 Blast Cells # 0.0 K/mm3 01/04/18 17:34 WBC Morphology Not Reportable 01/04/18 17:34 Hypersegmented Neuts Not Reportable 01/04/18 17:34 Hyposegmented Neuts Not Reportable 01/04/18 17:34 Hypogranular Neuts Not Reportable 01/04/18 17:34 Smudge Cells Not Reportable 01/04/18 17:34 Toxic Granulation Not Reportable 01/04/18 17:34 Toxic Vacuolation Not Reportable 01/04/18 17:34 Dohle Bodies Not Reportable 01/04/18 17:34 Pelger-Huet Anomaly Not Reportable 01/04/18 17:34 Mone Rods Not Reportable 01/04/18 17:34 Platelet Estimate Consistent w auto 01/04/18 17:34 Clumped Platelets Not Reportable 01/04/18 17:34 Plt Clumps, EDTA Not Reportable 01/04/18 17:34 Large Platelets Not Reportable 01/04/18 17:34 Giant Platelets Not Reportable 01/04/18 17:34 Platelet Satelliting Not Reportable 01/04/18 17:34 Plt Morphology Comment Not Reportable 01/04/18 17:34 RBC Morphology Not Reportable 01/04/18 17:34 Dimorphic RBCs Not Reportable 01/04/18 17:34 Polychromasia Not Reportable 01/04/18 17:34 Hypochromasia Not Reportable 01/04/18 17:34 Poikilocytosis Not Reportable 01/04/18 17:34 Anisocytosis 1+ 01/04/18 17:34 Microcytosis Not Reportable 01/04/18 17:34 Macrocytosis Not Reportable 01/04/18 17:34 Spherocytes Not Reportable 01/04/18 17:34 Pappenheimer Bodies Not Reportable 01/04/18 17:34 Sickle Cells Not Reportable 01/04/18 17:34 Target Cells Not Reportable 01/04/18 17:34 Tear Drop Cells Not Reportable 01/04/18 17:34 Ovalocytes Not Reportable 01/04/18 17:34 Helmet Cells Not Reportable 01/04/18 17:34 [place] Bodies Not Reportable 01/04/18 17:34 [place] Rings Not Reportable 01/04/18 17:34 Syl Cells Not Reportable 01/04/18 17:34 Bite Cells Not Reportable 01/04/18 17:34 Crenated Cell Not Reportable 01/04/18 17:34 Elliptocytes Not Reportable 01/04/18 17:34 Acanthocytes (Spur) Not Reportable 01/04/18 17:34 Rouleaux Not Reportable 01/04/18 17:34 Hemoglobin C Crystals Not Reportable 01/04/18 17:34 Schistocytes Not Reportable 01/04/18 17:34 Malaria parasites Not Reportable 01/04/18 17:34 Rich Bodies Not Reportable 01/04/18 17:34 Hem Pathologist Commnt No 01/04/18 17:34 Sodium 139 mmol/L (137-145) 01/07/18 06:27 Potassium 3.8 mmol/L (3.6-5.0) 01/07/18 06:27 Chloride 98.8 mmol/L (98-107) 01/07/18 06:27 Carbon Dioxide 27 mmol/L (22-30) 01/07/18 06:27 Anion Gap 17 mmol/L 01/07/18 06:27 BUN 34 mg/dL (9-20) H 01/07/18 06:27 Creatinine 2.1 mg/dL (0.8-1.5) H 01/07/18 06:27 Estimated GFR 42 ml/min 01/07/18 06:27 BUN/Creatinine Ratio 16 % 01/07/18 06:27 Glucose 106 mg/dL (75-100) H 01/07/18 06:27 POC Glucose 184 (70-105) H 01/06/18 20:32 Calcium 8.5 mg/dL (8.4-10.2) 01/07/18 06:27 Magnesium 2.40 mg/dL (1.7-2.3) H 01/07/18 06:27 Total Bilirubin 0.30 mg/dL (0.1-1.2) 01/04/18 17:34 AST 14 units/L (5-40) 01/04/18 17:34 ALT 14 units/L (7-56) 01/04/18 17:34 Alkaline Phosphatase 71 units/L (35-129) 01/04/18 17:34 Troponin T 0.128 ng/mL (0.00-0.029) H* 01/05/18 01:21 Total Protein 7.0 g/dL (6.3-8.2) 01/04/18 17:34 Albumin 3.8 g/dL (3.9-5) L 01/04/18 17:34 Albumin/Globulin Ratio 1.2 % 01/04/18 17:34 Triglycerides 51 mg/dL (2-149) 01/04/18 17:34 Cholesterol 109 mg/dL (50-199) 01/04/18 17:34 LDL Cholesterol Direct 57 mg/dL (50-130) 01/04/18 17:34 HDL Cholesterol 42 mg/dL (40-59) 01/04/18 17:34 Cholesterol/HDL Ratio 2.59 % 01/04/18 17:34 Lipase 40 units/L (13-60) 01/04/18 17:34 Urine Color Yellow (Yellow) 01/04/18 Unknown Urine Turbidity Clear (Clear) 01/04/18 Unknown Urine pH 5.0 (5.0-7.0) 01/04/18 Unknown Ur Specific [place] 1.013 (1.003-1.030) 01/04/18 Unknown Urine Protein 100 mg/dl mg/dL (Negative) 01/04/18 Unknown Urine Glucose (UA) 150 mg/dL (Negative) 01/04/18 Unknown Urine Ketones Neg mg/dL (Negative) 01/04/18 Unknown Urine Blood Sm (Negative) 01/04/18 Unknown Urine Nitrite Neg (Negative) 01/04/18 Unknown Urine Bilirubin Neg (Negative) 01/04/18 Unknown Urine Urobilinogen < 2.0 mg/dL (<2.0) 01/04/18 Unknown Ur Leukocyte Esterase Neg (Negative) 01/04/18 Unknown Urine WBC (Auto) 1.0 /HPF (0.0-6.0) 01/04/18 Unknown Urine RBC (Auto) 1.0 /HPF (0.0-6.0) 01/04/18 Unknown Urine Bacteria (Auto) 1+ /HPF (Negative) 01/04/18 Unknown Urine Mucus Few /HPF 01/04/18 Unknown
--- NOTE | 2018-01-07 09:59 | Discharge Summary ---
Providers - Providers Date of Admission: 01/05/18 02:17 Attending physician: DEANDRE QUISPE MD 01/05/18 02:22 Consult to Physician [CONS] Routine Consulting Provider: TERI ESQUEDA Reason For Exam: ua Place consult to:: Dr. Esqueda Notified:: Rosamaria NUÑEZ Phone number called:: Was contact made?: Yes If yes, spoke with:: [facility]wering service Time called:: 08:22 Primary care physician: BENJAMIN STEVENSON Hospitalization Condition: Stable Hospital course: --Atypical chest pain; improved Continue current management --Hypokalemia; replace per protocol and monitor levels --Coronary artery disease ;Recent heart Total occlusion midright coronary artery with collaterals Mild Non-obstructive coronary artery disease , Continue current management --Ascending aortic enlargement 4.3 cm, follow CT chest monitor ascending aortic enlargement, cardiology following --Nonspecific elevation of troponins probably secondary to renal failure, closely monitor --Acute on chronic kidney disease stage III; vasomotor nephropathy, closely monitor renal function and avoid nephrotoxic medications, Consult nephrology if no improvement --Type 2 diabetes mellitus; Accu-Chek sliding scale coverage and ADA diet and oral hypoglycemics --Congestive heart failure; LVEF 50-55% on echo 2 months ago, probably diastolic dysfunction Gentle diuresis as needed --DVT prophylaxis; Lovenox --Closely monitor the patient on just the management as needed Plan of care is reviewed with the patient and his nurse Disposition; possible discharge in 1-2 days if stable and cleared by cardiology Disposition: DC-01 TO HOME OR SELFCARE Time spent for discharge: 33 minutes Core Measure Documentation - Palliative Care Palliative Care/ Comfort Measures: Not Applicable - Core Measures Any of the following diagnoses?: none Exam - Constitutional Vitals: Temp Pulse Resp BP Pulse Ox 98.3 F 74 8 L 168/108 97 01/07/18 04:27 01/07/18 04:25 01/07/18 04:27 01/07/18 04:27 01/07/18 04:25 General appearance: Present: no acute distress, well-nourished - EENT Eyes: Present: PERRL ENT: hearing intact, clear oral mucosa - Neck Neck: Present: supple, normal ROM - Respiratory Respiratory effort: normal Respiratory: bilateral: CTA - Cardiovascular Heart Sounds: Present: S1 & S2. Absent: rub, click - Extremities Extremities: pulses symmetrical, No edema Peripheral Pulses: within normal limits - Abdominal General gastrointestinal: Present: soft, non-tender, non-distended, normal bowel sounds Male genitourinary: Present: normal - Integumentary Integumentary: Present: clear, warm, dry - Musculoskeletal Musculoskeletal: gait normal, strength equal bilaterally - Psychiatric Psychiatric: appropriate mood/affect, intact judgment & insight - Neurologic Neurologic: CNII-XII intact, moves all extremities Plan Follow up with: BENJAMIN STEVENSON MD [Primary Care Provider] - 3-5 Days Prescriptions: ISOSORBIDE MONOnitrate [Imdur ER] 60 mg PO QDAY #30 tablet
[2018-01-07] MEDS: COREG PO SCH (10:38)
[2018-01-07] MEDS: BABY ASPIRIN PO SCH (10:38)
[2018-01-07] MEDS: LOVENOX SUB-Q SCH (10:39)
[2018-01-07] MEDS: IMDUR PO SCH (10:39)
[2018-01-07] MEDS: NOVOLOG SUB-Q SCH ×2 (10:40→14:27)
[2018-01-07] MEDS: GLUCOTROL PO SCH (10:46)
--- NOTE | 2018-01-07 15:20 | Progress Note ---
Assessment and Plan Atypical Chest pain Coronary artery disease Recent Right/LHC findings: elevated left and right sided filling pressures chronic total occlusion of the mid right coronary artery, with the distal vessel perfused by right to right and [id number] collaterals. otherwise, mild nonobstructive atherosclerosis of the left coronary system. echocardiogram 10/02/17 shows left ventricular systolic function well preserved with ejection fraction 50-55% medical therapy recommended Non-specific troponin abnormality in the setting of renal failure Diabetes mellitus Systemic Hypertension Renal failure Ascending Aorta Aneurysm measuring 4.5cm on CT Recommend: Continue medical therapy for small vessel coronary artery disease. Stable cardiac alvarado. F/U with [facility] in 1-2 weeks. Subjective Date of service: 01/07/18 Interval history: Patient has no complaints. Objective Vital Signs Temp Pulse Resp BP BP Pulse Ox 01/07/18 11:00 87 01/07/18 10:39 80 01/07/18 10:38 80 01/07/18 04:27 98.3 F 8 L 168/108 01/07/18 04:25 98.2 F 74 16 165/101 97 01/06/18 23:49 99.1 F 77 20 155/100 98 01/06/18 22:00 70 01/06/18 19:54 98.2 F 73 16 165/101 97 01/06/18 17:29 99.1 F 81 18 163/106 96 01/06/18 15:56 162/108 - Physical Examination General: No Apparent Distress HEENT: Positive: PERRL Cardiac: Positive: Reg Rate and Rhythm Lungs: Positive: Decreased Breath Sounds Neuro: Positive: Grossly Intact - Labs and Meds CBC 01/07/18 Range/Units 06:27 WBC 9.4 (4.5-11.0) K/mm3 RBC 3.35 L (3.65-5.03) M/mm3 Hgb 9.2 L (11.8-15.2) gm/dl Hct 27.2 L (35.5-45.6) % Plt Count 215 (140-440) K/mm3 Lymph # 1.5 (1.2-5.4) K/mm3 [place] # 1.2 H (0.0-0.8) K/mm3 Eos # 0.3 (0.0-0.4) K/mm3 Baso # 0.1 (0.0-0.1) K/mm3 Comprehensive Metabolic Panel 01/07/18 Range/Units 06:27 Sodium 139 (137-145) mmol/L Potassium 3.8 (3.6-5.0) mmol/L Chloride 98.8 (98-107) mmol/L Carbon Dioxide 27 (22-30) mmol/L BUN 34 H (9-20) mg/dL Creatinine 2.1 H (0.8-1.5) mg/dL Glucose 106 H (75-100) mg/dL Calcium 8.5 (8.4-10.2) mg/dL - Imaging and Cardiology EKG: image reviewed
== END 2018-01-07 14:29 | disposition home or self-care (01) | DRG 302 ==
LOC: ED 17:11 → 4A 01-05 02:17
PROVIDERS: ADMIT Internal Medicine; ATTEND Internal Medicine
DX: I25.110 Atherosclerotic heart disease of native coronary artery with unstable angina pectoris (principal); N17.0 Acute kidney failure with tubular necrosis; I50.30 Unspecified diastolic (congestive) heart failure; I13.0 Hypertensive heart and chronic kidney disease with heart failure and stage 1 through stage 4 chronic kidney disease, or unspecified chronic kidney disease; R07.89 Other chest pain; E87.6 Hypokalemia; N18.3 Chronic kidney disease, stage 3 (moderate); F17.200 Nicotine dependence, unspecified, uncomplicated; E11.22 Type 2 diabetes mellitus with diabetic chronic kidney disease; Z86.73 Personal history of transient ischemic attack (TIA), and cerebral infarction without residual deficits; Z79.82 Long term (current) use of aspirin; Z79.899 Other long term (current) drug therapy; Z82.49 Family history of ischemic heart disease and other diseases of the circulatory system
CPT/HCPCS: 36415; 71045; 71250; 74176; 78582; 80048; 80053; 80061; 81001; 82962; 83690; 83735; 84484; 85007; 85025; 93005; 93010; A9270-GY; A9540; A9558; J1650; J1815; J2405; J3010

== ENCOUNTER 2018-01-19 15:00 | Emergency (ER) | payer SELFPAY ==
[2018-01-19 15:11] VITALS: BP 158/99
--- NOTE | 2018-01-19 19:38 | Emergency Department Report ---
ED Lower Extremity HPI - General Chief Complaint: Extremity Injury, Lower Stated Complaint: LEFT LEG PAIN Time Seen by Provider: 01/19/18 19:27 Source: patient Mode of arrival: Ambulatory Limitations: No Limitations - History of Present Illness Initial Comments: This is a 42 y.o. A.A. male presents with left groin pain that radiates to left thigh for 2 weeks. Denies recent injury to left leg. He was discharged from the hospital 2 weeks ago and left leg was stiff while admitted. He has been walking to see if that will loosen the area. He has also been using epson salt and alcohol soaks to relieve pain. Pain is getting worse with movement and at rest. Denies numbness/tingling, swelling, or redness to area. MD Complaint: thigh injury (left) -: week(s) (2) Injury: Thigh: Left (pain) Type of Injury: unknown Place: other (hospital) Severity: severe Severity scale (0 -10): 10 Improves With: nothing Worsens With: weight bearing, movement Associated Symptoms: able to partially bear weight, ambulatory Treatments Prior to Arrival: other (stretching, epson salt, and alcohol ) - Related Data Home Medications Medication Instructions Recorded Confirmed Last Taken Furosemide [Lasix TAB] 40 mg PO QDAY 11/05/17 01/06/18 1 Day Ago ~01/05/18 Pravastatin [Pravachol] 40 mg PO QHS 11/05/17 01/06/18 1 Day Ago ~01/05/18 glipiZIDE [Glipizide] 5 mg PO BIDAC 11/05/17 01/06/18 1 Day Ago ~01/05/18 Previous Rx's Medication Instructions Recorded Last Taken Type Aspirin [Aspirin BABY CHEW TAB] 81 mg PO QDAY #30 tab.chew 09/29/17 1 Day Ago Rx ~01/05/18 Carvedilol [Coreg] 12.5 mg PO BID #60 tablet 09/29/17 1 Day Ago Rx ~01/05/18 cloNIDine [Catapres] 0.1 mg PO Q8H #90 tablet 09/29/17 1 Day Ago Rx ~01/05/18 hydrALAZINE [Apresoline TAB] 100 mg PO Q8HR #90 tab 09/29/17 1 Day Ago Rx ~01/05/18 ISOSORBIDE MONOnitrate [Imdur ER] 60 mg PO QDAY #30 tablet 01/07/18 Unknown Rx Ibuprofen 800 mg PO Q6H PRN #20 tablet 01/19/18 Unknown Rx Allergies Allergy/AdvReac Type Severity Reaction Status Date / Time No Known Allergies Allergy Verified 10/02/17 18:06 ED Review of Systems ROS: Stated complaint: LEFT LEG PAIN Other details as noted in HPI Constitutional: denies: chills, fever Respiratory: denies: cough, shortness of breath, wheezing Cardiovascular: denies: chest pain, palpitations Gastrointestinal: denies: abdominal pain, nausea, diarrhea Musculoskeletal: arthralgia (left groin pain radiating to knee) Skin: denies: rash, lesions, change in color Neurological: denies: headache, weakness, numbness, paresthesias ED Past Medical Hx - Past Medical History Previous Medical History?: Yes Hx Hypertension: Yes Hx CVA: Yes Hx Congestive Heart Failure: No Hx Diabetes: Yes Hx Deep Vein Thrombosis: No Hx Renal Disease: Yes (chronic renal insufficiency) Hx Arthritis: No Hx Asthma: No Hx COPD: No - Surgical History Past Surgical History?: Yes Additional Surgical History: heart cath 09/2017 - Social History Smoking Status: Current Every Day Smoker Substance Use Type: Alcohol, Prescribed - Medications Home Medications: Home Medications Medication Instructions Recorded Confirmed Last Taken Type Aspirin [Aspirin BABY CHEW TAB] 81 mg PO QDAY #30 tab.chew 09/29/17 01/06/18 1 Day Ago Rx ~01/05/18 Carvedilol [Coreg] 12.5 mg PO BID #60 tablet 09/29/17 01/06/18 1 Day Ago Rx ~01/05/18 cloNIDine [Catapres] 0.1 mg PO Q8H #90 tablet 09/29/17 01/06/18 1 Day Ago Rx ~01/05/18 hydrALAZINE [Apresoline TAB] 100 mg PO Q8HR #90 tab 09/29/17 01/06/18 1 Day Ago Rx ~01/05/18 Furosemide [Lasix TAB] 40 mg PO QDAY 11/05/17 01/06/18 1 Day Ago History ~01/05/18 Pravastatin [Pravachol] 40 mg PO QHS 11/05/17 01/06/18 1 Day Ago History ~01/05/18 glipiZIDE [Glipizide] 5 mg PO BIDAC 11/05/17 01/06/18 1 Day Ago History ~01/05/18 ISOSORBIDE MONOnitrate [Imdur ER] 60 mg PO QDAY #30 tablet 01/07/18 Unknown Rx Ibuprofen 800 mg PO Q6H PRN #20 tablet 01/19/18 Unknown Rx ED Physical Exam - General Limitations: No Limitations General appearance: alert, in no apparent distress - Respiratory Respiratory exam: Present: normal lung sounds bilaterally. Absent: respiratory distress - Cardiovascular Cardiovascular Exam: Present: regular rate, normal rhythm. Absent: systolic murmur, diastolic murmur, rubs, gallop - GI/Abdominal GI/Abdominal exam: Present: soft, normal bowel sounds - Expanded Lower Extremity Exam Left Hip exam: Present: normal inspection, full ROM. Absent: tenderness, swelling, laceration, ecchymosis, deformity, crepidus, dislocation, erythema Upper Leg exam: Present: normal inspection, full ROM. Absent: tenderness, swelling, abrasion, laceration, crepidus, dislocation, erythema Knee exam: Present: normal inspection, full ROM, pain w/ pronation/supination, full knee extension. Absent: tenderness, swelling, posterior draw sign Lower Leg exam: Present: normal inspection, full ROM. Absent: tenderness, swelling, abrasion, dislocation, erythema, palpable cord, Olga's sign Ankle exam: Present: normal inspection, full ROM Foot/Toe exam: Present: normal inspection, full ROM Neuro vascular tendon exam: Present: no vascular compromise. Absent: motor deficit, extremity cold to touch, significant pain with passive ROM of distal joint Gait: Positive: observed and limited by pain - Neurological Exam Neurological exam: Present: alert, oriented X3 ED Course Vital Signs 01/19/18 15:06 Temperature 98.2 F Pulse Rate 82 Respiratory 20 Rate Blood Pressure 158/99 O2 Sat by Pulse 100 Oximetry ED Lower Extremity MDM - Radiology Data Radiology results: report reviewed NO EVIDENCE OF DVT/SVT IN VESSELS VISUALIZED.SOFT TISSUE CHANGES SEEN IN THE LT.KNEE PROBABLY EFFUSION. - Medical Decision Making This is a 42 y.o. male presents with pain to LLE in thigh x 2 weeks. Discharged from hospital 2 weeks ago and experiencing pain since. Patient examined by me. Doppler US of LLE obtained and no evidence of DVT/SVT. Soft tissue changes seen in left knee, possible effusion. Physical exam of LLE normal. Patient is non-toxic appearing and stable. Referral to vascular. Discharged home with ibuprofen for pain. Discussed ER care plan with patient. Patient agreed with plan. F/U with PCP. Critical care attestation.: If time is entered above; I have spent that time in minutes in the direct care of this critically ill patient, excluding procedure time. ED Disposition Clinical Impression: Knee effusion, left Lower extremity pain Qualifiers: Laterality: left Qualified Code(s): M79.605 - Pain in left leg Disposition: DC- TO HOME OR SELFCARE Is pt being admited?: No Does the pt Need Aspirin: No Condition: Stable Instructions: Knee Effusion (ED), Arthralgia (ED) Additional Instructions: Follow up with vascular surgery. Rest Use ice or heat on affected area for 20 minutes and off for 2 hours. Take pain medication as needed for pain. Prescriptions: Ibuprofen 800 mg PO Q6H PRN #20 tablet PRN Reason: Pain Referrals: [facility] [Outside] - 3-5 Days [facility] [Outside] - 3-5 Days MIRA ECHAVARRIA MD [Staff Physician] - 3-5 Days Time of Disposition: 21:30 Print Language: NEPALI
--- NOTE | 2018-01-22 10:23 | Vascular Lab Report ---
Left Lower Extremity Venous Duplex Study: Reason for Exam: Pain and swelling of the left lower extremity. Comments on the Right: A limited duplex study was done of the proximal veins of the right lower extremity. All veins visualized are freely compressible without evidence of internal echogenicity. Flow is spontaneous and phasic throughout. No evidence of acute or chronic thrombus is seen in any of the vessels visualized. Comments on the Left: All veins visualized are freely compressible without evidence of internal echogenicity. Flow is spontaneous and phasic throughout. No evidence of acute or chronic thrombus is seen in any of the vessels visualized. A soft tissue change in the left knee area is consistent with a Constantino's cyst. Impression: No evidence of acute or chronic deep venous thrombosis in the left lower extremity. A soft tissue change in the left knee area is consistent with a Constantino's cyst.
== END 2018-01-19 21:35 | disposition home or self-care (01) ==
LOC: ED 15:00
DX: M25.462 Effusion, left knee (principal); M79.605 Pain in left leg; F17.200 Nicotine dependence, unspecified, uncomplicated; I12.9 Hypertensive chronic kidney disease with stage 1 through stage 4 chronic kidney disease, or unspecified chronic kidney disease; E11.22 Type 2 diabetes mellitus with diabetic chronic kidney disease; N18.9 Chronic kidney disease, unspecified; Z86.73 Personal history of transient ischemic attack (TIA), and cerebral infarction without residual deficits
CPT/HCPCS: 99282

== ENCOUNTER 2018-03-30 21:21 | Inpatient (IN) | payer SELFPAY ==
[2018-03-30 22:40] LABS: Albumin 3.9 g/dL (3.9-5); Calcium 8.8 mg/dL (8.4-10.2)
[2018-03-30 22:54] LABS: Hematocrit 31.1 % (35.5-45.6); Hemoglobin 10.3 gm/dl (11.8-15.2); Mean Corpuscular HGB Conc 33 % (32-34); Mean Corpuscular Hemoglobin 27 pg (28-32); Mean Corpuscular Volume 81 fl (84-94); Platelet Count 244 K/mm3 (140-440); Red Blood Count 3.86 M/mm3 (3.65-5.03); Red Cell Distribution Width 16.9 % (13.2-15.2)
[2018-03-30] MEDS ORDERED: CATAPRES PO ONE (23:54)
[2018-03-31] MEDS ORDERED: ZOFRAN IV ONE (00:27)
[2018-03-31] MEDS ORDERED: MORPHINE IV ONE (00:27)
--- NOTE | 2018-03-31 00:30 | Emergency Department Report ---
ED Abdominal Pain HPI - General Chief Complaint: Abdominal Pain Stated Complaint: ABD PAIN Time Seen by Provider: 03/30/18 23:52 Source: patient, old records reviewed Mode of arrival: Stretcher Limitations: No Limitations - History of Present Illness Initial Comments: 42-year-old male with a past medical history CVA, diabetes, hypertension, and chronic renal insufficiency presents to the hospital complaining of severe suprapubic abdominal pain this evening. Patient has not urinated since this morning. Suprapubic pain is rated 10/10in intensity, constant, and worse with palpation. Patient denies history of urinary retention or having to strain with urination, hematuria, dysuria, or fever. Patient has also not had a bowel movement in 1 week, denies history of previous abdominal surgeries, positive nausea without vomiting reported. Severity scale (0 -10): 10 - Related Data Home Medications Medication Instructions Recorded Confirmed Last Taken Furosemide [Lasix TAB] 40 mg PO QDAY 11/05/17 01/06/18 1 Day Ago ~01/05/18 Pravastatin [Pravachol] 40 mg PO QHS 11/05/17 01/06/18 1 Day Ago ~01/05/18 glipiZIDE [Glipizide] 5 mg PO BIDAC 11/05/17 01/06/18 1 Day Ago ~01/05/18 Previous Rx's Medication Instructions Recorded Last Taken Type Aspirin [Aspirin BABY CHEW TAB] 81 mg PO QDAY #30 tab.chew 09/29/17 1 Day Ago Rx ~01/05/18 Carvedilol [Coreg] 12.5 mg PO BID #60 tablet 09/29/17 1 Day Ago Rx ~01/05/18 cloNIDine [Catapres] 0.1 mg PO Q8H #90 tablet 09/29/17 1 Day Ago Rx ~01/05/18 hydrALAZINE [Apresoline TAB] 100 mg PO Q8HR #90 tab 09/29/17 1 Day Ago Rx ~01/05/18 ISOSORBIDE MONOnitrate [Imdur ER] 60 mg PO QDAY #30 tablet 01/07/18 Unknown Rx Ibuprofen 800 mg PO Q6H PRN #20 tablet 01/19/18 Unknown Rx Allergies Allergy/AdvReac Type Severity Reaction Status Date / Time No Known Allergies Allergy Verified 10/02/17 18:06 ED Review of Systems ROS: Stated complaint: ABD PAIN Other details as noted in HPI Comment: All other systems reviewed and negative ED Past Medical Hx - Past Medical History Hx Hypertension: Yes Hx CVA: Yes Hx Congestive Heart Failure: No Hx Diabetes: Yes Hx Deep Vein Thrombosis: No Hx Renal Disease: Yes (chronic renal insufficiency) Hx Arthritis: No Hx Asthma: No Hx COPD: No - Surgical History Additional Surgical History: heart cath 09/2017 - Social History Smoking Status: Current Every Day Smoker Substance Use Type: None - Medications Home Medications: Home Medications Medication Instructions Recorded Confirmed Last Taken Type Aspirin [Aspirin BABY CHEW TAB] 81 mg PO QDAY #30 tab.chew 09/29/17 01/06/18 1 Day Ago Rx ~01/05/18 Carvedilol [Coreg] 12.5 mg PO BID #60 tablet 09/29/17 01/06/18 1 Day Ago Rx ~01/05/18 cloNIDine [Catapres] 0.1 mg PO Q8H #90 tablet 09/29/17 01/06/18 1 Day Ago Rx ~01/05/18 hydrALAZINE [Apresoline TAB] 100 mg PO Q8HR #90 tab 09/29/17 01/06/18 1 Day Ago Rx ~01/05/18 Furosemide [Lasix TAB] 40 mg PO QDAY 11/05/17 01/06/18 1 Day Ago History ~01/05/18 Pravastatin [Pravachol] 40 mg PO QHS 11/05/17 01/06/18 1 Day Ago History ~01/05/18 glipiZIDE [Glipizide] 5 mg PO BIDAC 11/05/17 01/06/18 1 Day Ago History ~01/05/18 ISOSORBIDE MONOnitrate [Imdur ER] 60 mg PO QDAY #30 tablet 01/07/18 Unknown Rx Ibuprofen 800 mg PO Q6H PRN #20 tablet 01/19/18 Unknown Rx ED Physical Exam - General Limitations: No Limitations - Other Other exam information: General: No limitations, patient is alert in no acute distress Head exam: Atraumatic, normocephalic Eyes exam: Normal appearance, pupils equal reactive to light, extraocular movements intact ENT: Moist mucous membrane, normal oropharynx Neck exam: Normal inspection, full range of motion, no meningismus nontender Respiratory exam: Clear to auscultation bilateral, no wheezes, rales, crackles Cardiovascular: Normal rate and rhythm, normal heart sounds Abdomen: Soft, nondistended, suprapubic tenderness, with normal bowel sounds, no rebound, or guarding Extremity: Full range of motion normal inspection no deformity Back: Normal Inspection, full range of motion, no tenderness Neurologic: Alert, oriented x3 Psychiatric: normal affect, normal mood Skin: Warm, dry, intact ED Course Vital Signs 03/30/18 03/30/18 03/30/18 21:49 23:02 23:15 Temperature 99.1 F Pulse Rate 77 Respiratory 18 Rate Blood Pressure 193/108 217/126 201/118 Blood Pressure [Left] O2 Sat by Pulse 97 Oximetry 03/30/18 03/30/18 03/30/18 23:30 23:45 23:51 Temperature 98.9 F Pulse Rate 80 Respiratory 19 Rate Blood Pressure 195/116 193/112 Blood Pressure 173/112 [Left] O2 Sat by Pulse 98 Oximetry 03/31/18 03/31/18 03/31/18 00:00 00:37 01:00 Temperature Pulse Rate Respiratory Rate Blood Pressure 193/104 190/103 190/103 Blood Pressure [Left] O2 Sat by Pulse Oximetry 03/31/18 03/31/18 03/31/18 01:30 02:00 02:30 Temperature Pulse Rate Respiratory Rate Blood Pressure 154/88 173/96 178/95 Blood Pressure [Left] O2 Sat by Pulse Oximetry 03/31/18 03/31/18 03/31/18 03:00 03:30 04:00 Temperature Pulse Rate Respiratory Rate Blood Pressure 173/97 171/94 178/99 Blood Pressure [Left] O2 Sat by Pulse Oximetry ED Medical Decision Making - Lab Data Result diagrams: 03/30/18 22:14 03/30/18 22:14 Lab Results 03/30/18 03/30/18 03/30/18 Range/Units 22:14 22:14 22:16 WBC 13.3 H (4.5-11.0) K/mm3 RBC 3.86 (3.65-5.03) M/mm3 Hgb 10.3 L (11.8-15.2) gm/dl Hct 31.1 L (35.5-45.6) % MCV 81 L (84-94) fl MCH 27 L (28-32) pg MCHC 33 (32-34) % RDW 16.9 H (13.2-15.2) % Plt Count 244 (140-440) K/mm3 Add Manual Diff Complete Total Counted 100 Seg Neuts % (Manual) 92.0 H (40.0-70.0) % Band Neutrophils % 0 % Lymphocytes % (Manual) 6.0 L (13.4-35.0) % Reactive Lymphs % (Man) 0 % Monocytes % (Manual) 2.0 (0.0-7.3) % Eosinophils % (Manual) 0 (0.0-4.3) % Basophils % (Manual) 0 (0.0-1.8) % Metamyelocytes % 0 % Myelocytes % 0 % Promyelocytes % 0 % Blast Cells % 0 % Nucleated RBC % Not Reportable Seg Neutrophils # Man 12.2 H (1.8-7.7) K/mm3 Band Neutrophils # 0.0 K/mm3 Lymphocytes # (Manual) 0.8 L (1.2-5.4) K/mm3 Abs React Lymphs (Man) 0.0 K/mm3 Monocytes # (Manual) 0.3 (0.0-0.8) K/mm3 Eosinophils # (Manual) 0.0 (0.0-0.4) K/mm3 Basophils # (Manual) 0.0 (0.0-0.1) K/mm3 Metamyelocytes # 0.0 K/mm3 Myelocytes # 0.0 K/mm3 Promyelocytes # 0.0 K/mm3 Blast Cells # 0.0 K/mm3 WBC Morphology Not Reportable Hypersegmented Neuts Not Reportable Hyposegmented Neuts Not Reportable Hypogranular Neuts Not Reportable Smudge Cells Not Reportable Toxic Granulation Not Reportable Toxic Vacuolation Not Reportable Dohle Bodies Not Reportable Pelger-Huet Anomaly Not Reportable Mone Rods Not Reportable Platelet Estimate Consistent w auto Clumped Platelets Not Reportable Plt Clumps, EDTA Not Reportable Large Platelets Not Reportable Giant Platelets Not Reportable Platelet Satelliting Not Reportable Plt Morphology Comment Not Reportable RBC Morphology Not Reportable Dimorphic RBCs Not Reportable Polychromasia Not Reportable Hypochromasia Not Reportable Poikilocytosis Not Reportable Anisocytosis Not Reportable Microcytosis Not Reportable Macrocytosis Not Reportable Spherocytes Not Reportable Pappenheimer Bodies Not Reportable Sickle Cells Not Reportable Target Cells Not Reportable Tear Drop Cells Not Reportable Ovalocytes Not Reportable Helmet Cells Not Reportable [place] Bodies Not Reportable [place] Rings Not Reportable [place] Cells Not Reportable Bite Cells Not Reportable Crenated Cell Not Reportable Elliptocytes Not Reportable Acanthocytes (Spur) Not Reportable Rouleaux Not Reportable Hemoglobin C Crystals Not Reportable Schistocytes Not Reportable Malaria parasites Not Reportable Rich Bodies Not Reportable Hem Pathologist Commnt No Sodium 137 (137-145) mmol/L Potassium 3.5 L (3.6-5.0) mmol/L Chloride 98.3 (98-107) mmol/L Carbon Dioxide 22 (22-30) mmol/L Anion Gap 20 mmol/L BUN 40 H (9-20) mg/dL Creatinine 2.5 H (0.8-1.5) mg/dL Estimated GFR 34 ml/min BUN/Creatinine Ratio 16 % Glucose 159 H (75-100) mg/dL Calcium 8.8 (8.4-10.2) mg/dL Total Bilirubin 0.70 (0.1-1.2) mg/dL AST 19 (5-40) units/L ALT 41 (7-56) units/L Alkaline Phosphatase 117 (35-129) units/L Total Protein 7.2 (6.3-8.2) g/dL Albumin 3.9 (3.9-5) g/dL Albumin/Globulin Ratio 1.2 % Lipase 19 (13-60) units/L Urine Color (Yellow) Urine Turbidity (Clear) Urine pH (5.0-7.0) Ur Specific [place] (1.003-1.030) Urine Protein (Negative) mg/dL Urine Glucose (UA) (Negative) mg/dL Urine Ketones (Negative) mg/dL Urine Blood (Negative) Urine Nitrite (Negative) Urine Bilirubin (Negative) Urine Urobilinogen (<2.0) mg/dL Ur Leukocyte Esterase (Negative) Urine WBC (Auto) (0.0-6.0) /HPF Urine RBC (Auto) (0.0-6.0) /HPF Urine Bacteria (Auto) (Negative) /HPF Urine Mucus /HPF 03/31/18 Range/Units 01:07 WBC (4.5-11.0) K/mm3 RBC (3.65-5.03) M/mm3 Hgb (11.8-15.2) gm/dl Hct (35.5-45.6) % MCV (84-94) fl MCH (28-32) pg MCHC (32-34) % RDW (13.2-15.2) % Plt Count (140-440) K/mm3 Add Manual Diff Total Counted Seg Neuts % (Manual) (40.0-70.0) % Band Neutrophils % % Lymphocytes % (Manual) (13.4-35.0) % Reactive Lymphs % (Man) % Monocytes % (Manual) (0.0-7.3) % Eosinophils % (Manual) (0.0-4.3) % Basophils % (Manual) (0.0-1.8) % Metamyelocytes % % Myelocytes % % Promyelocytes % % Blast Cells % % Nucleated RBC % Seg Neutrophils # Man (1.8-7.7) K/mm3 Band Neutrophils # K/mm3 Lymphocytes # (Manual) (1.2-5.4) K/mm3 Abs React Lymphs (Man) K/mm3 Monocytes # (Manual) (0.0-0.8) K/mm3 Eosinophils # (Manual) (0.0-0.4) K/mm3 Basophils # (Manual) (0.0-0.1) K/mm3 Metamyelocytes # K/mm3 Myelocytes # K/mm3 Promyelocytes # K/mm3 Blast Cells # K/mm3 WBC Morphology Hypersegmented Neuts Hyposegmented Neuts Hypogranular Neuts Smudge Cells Toxic Granulation Toxic Vacuolation Dohle Bodies Pelger-Huet Anomaly Mone Rods Platelet Estimate Clumped Platelets Plt Clumps, EDTA Large Platelets Giant Platelets Platelet Satelliting Plt Morphology Comment RBC Morphology Dimorphic RBCs Polychromasia Hypochromasia Poikilocytosis Anisocytosis Microcytosis Macrocytosis Spherocytes Pappenheimer Bodies Sickle Cells Target Cells Tear Drop Cells Ovalocytes Helmet Cells Espinal[place] Bodies [place] Rings Syl Cells Bite Cells Crenated Cell Elliptocytes Acanthocytes (Spur) Rouleaux Hemoglobin C Crystals Schistocytes Malaria parasites Rich Bodies Hem Pathologist Commnt Sodium (137-145) mmol/L Potassium (3.6-5.0) mmol/L Chloride (98-107) mmol/L Carbon Dioxide (22-30) mmol/L Anion Gap mmol/L BUN (9-20) mg/dL Creatinine (0.8-1.5) mg/dL Estimated GFR ml/min BUN/Creatinine Ratio % Glucose (75-100) mg/dL Calcium (8.4-10.2) mg/dL Total Bilirubin (0.1-1.2) mg/dL AST (5-40) units/L ALT (7-56) units/L Alkaline Phosphatase (35-129) units/L Total Protein (6.3-8.2) g/dL Albumin (3.9-5) g/dL Albumin/Globulin Ratio % Lipase (13-60) units/L Urine Color Yellow (Yellow) Urine Turbidity Clear (Clear) Urine pH 5.0 (5.0-7.0) Ur Specific [place] 1.011 (1.003-1.030) Urine Protein 30 mg/dl (Negative) mg/dL Urine Glucose (UA) Neg (Negative) mg/dL Urine Ketones Neg (Negative) mg/dL Urine Blood Neg (Negative) Urine Nitrite Neg (Negative) Urine Bilirubin Neg (Negative) Urine Urobilinogen < 2.0 (<2.0) mg/dL Ur Leukocyte Esterase Neg (Negative) Urine WBC (Auto) 1.0 (0.0-6.0) /HPF Urine RBC (Auto) 6.0 (0.0-6.0) /HPF Urine Bacteria (Auto) 1+ (Negative) /HPF Urine Mucus Few /HPF - Radiology Data Radiology results: report reviewed ct abd pelvis noncontrast IMPRESSION: Fecal impaction as described. Distended urinary bladder. Bilateral adrenal hyperplasia. Cardiomegaly. ABDOMINAL SERIES XRAY IMPRESSION: Cardiomegaly. No acute process in the chest. Large amount retained feces in the colon. No acute process in the abdomen and pelvis otherwise. - Medical Decision Making fecal impaction no output despite enema lactulose given case d/w Dr cata BAHENA requisition approver consult orderd will have RN attempt manual disimpaction Urinary retention about 1900 ml output after perez insertion Normal prostate on CT scan UA negative Chronic renal sufficiency unchanged pt now has some hematuria htn improved after perez insertion and pain with that hip was still elevated. Patient not have even a blood pressure medication. Clonidine 0.1 mg ordered - Differential Diagnosis constipation, urinary retention, UTI, obstruction Critical Care Time: No Critical care attestation.: If time is entered above; I have spent that time in minutes in the direct care of this critically ill patient, excluding procedure time. ED Disposition Clinical Impression: Fecal impaction, Constipation, Urinary retention, CRI (chronic renal insufficiency), HTN (hypertension) Disposition: OP ADMIT IP TO THIS HOSP Is pt being admited?: Yes Condition: Stable Time of Disposition: 05:14 (Dr Fleming/hosp)
--- NOTE | 2018-03-31 00:55 | XRay Report ---
FINAL REPORT EXAM: XR ABD SERIES W CXR 1V HISTORY: abdominal pain TECHNIQUE: An AP view the chest was obtained along with two views of the abdomen. FINDINGS: The chest shows the heart to be [id number] enlarged. The lungs are clear. Pleural fluid is not seen. The skeletal structures reveal a levoscoliosis of the thoracic spine. There is a large amount retained feces in the colon. The bowel gas pattern otherwise is unremarkable. Free air is not seen. The bones soft tissues otherwise are unremarkable. IMPRESSION: Cardiomegaly. No acute process in the chest. Large amount retained feces in the colon. No acute process in the abdomen and pelvis otherwise.
--- NOTE | 2018-03-31 01:04 | Cat Scan Report ---
FINAL REPORT EXAM: CT ABDOMEN PELVIS WO CON HISTORY: no bm in 1 week, abd pain TECHNIQUE: Routine axial imaging was obtained of the abdomen and pelvis without oral or IV contrast. Sagittal coronal reconstructions were reviewed. Comparison is made to the study of 01/04/2018. FINDINGS: The lung bases are clear. Pleural fluid is not seen. The heart is mildly enlarged. The liver, gallbladder, pancreas, spleen all appear normal. There is stable bilateral adrenal gland enlargement compatible with adrenal hyperplasia. The kidneys show no evidence of stones or hydronephrosis. There is a large amount of retained feces throughout the colon and rectum compatible with fecal impaction. This has progressed since the previous study. There is no evidence of free fluid or adenopathy. The appendix is not enlarged. In the pelvis the bladder is markedly distended. The prostate gland appears normal. The skeletal structures do not show any acute changes. IMPRESSION: Fecal impaction as described. Distended urinary bladder. Bilateral adrenal hyperplasia. Cardiomegaly.
[2018-03-31] MEDS ORDERED: CEPHULAC PO ONE (01:29)
[2018-03-31 01:37] LABS: Bacteria,Urine 1+ /HPF (Negative); Bilirubin,Urine NEG (Negative); Blood,Urine NEG (Negative); Color,Urine Yellow (Yellow); Mucus,Urine FEW /HPF; Urobilinogen,Urine < 2.0 mg/dL (<2.0)
[2018-03-31 03:38] LABS: Total Cells Counted 100
[2018-03-31 03:39] LABS: Basophils % (Manual) 0 % (0.0-1.8); Eosinophils % (Manual) 0 % (0.0-4.3)
[2018-03-31 03:40] LABS: Platelet Estimate Consistent w Auto
[2018-03-31] MEDS ORDERED: CATAPRES PO ONE (05:45)
[2018-03-31] MEDS ORDERED: LIDOCAINE VISCOUS 2% MM NR (05:45)
[2018-03-31] MEDS ORDERED: DULCOLAX PR ONE (06:32)
[2018-03-31] MEDS ORDERED: ZOFRAN IV PRN (06:35)
[2018-03-31] MEDS ORDERED: D50W (25GM) Syringe IV PRN (06:37)
[2018-03-31] MEDS ORDERED: NACL 0.9% 1000 ML 1,000 ML IV SCH (07:00)
[2018-03-31] MEDS ORDERED: CATAPRES ONE (07:26)
[2018-03-31] MEDS ORDERED: NACL 0.9% 1000 ML 1,000 ML ONE (07:26)
[2018-03-31] MEDS: CATAPRES PO SCH ×2 (07:30→14:43)
[2018-03-31] MEDS: HumuLIN R SUB-Q SCH ×3 (07:59→17:23)
[2018-03-31] MEDS: IMDUR PO SCH (09:22)
[2018-03-31] MEDS: GLUCOTROL PO SCH ×2 (09:23→17:31)
[2018-03-31] MEDS: BABY ASPIRIN PO SCH (09:23)
[2018-03-31] MEDS: COREG PO SCH (09:23)
[2018-03-31] MEDS: MIRALAX 3350 PO SCH (09:24)
--- NOTE | 2018-03-31 09:57 | Event Note ---
Date: 03/31/18 Patient is 42 yo with history of stroke, diabetes, hypertension admitted for abdominal pain, fecal impaction. I have seen and examined him. Add Zunilda.
[2018-03-31] MEDS ORDERED: HEPARIN SUB-Q SCH (10:00)
--- NOTE | 2018-03-31 10:50 | History and Physical Report ---
CHIEF COMPLAINT: Abdominal pain. HISTORY OF PRESENT ILLNESS: The patient is a 42-year-old man who said he is having abdominal pain with urinary retention. The abdominal pain is mainly in the suprapubic area and the patient has not been able to urinate this morning. The patient denies history of nausea and vomiting and said that he has not had a bowel movement in 1 week. There is no history of fever or chills. The patient presented for evaluation. PAST MEDICAL HISTORY: Pertinent for hypertension, cerebrovascular accident, diabetes mellitus. Also, the patient has past history of chronic renal insufficiency. PAST SURGICAL HISTORY: Pertinent for heart catheterization. FAMILY HISTORY: Noncontributory. SOCIAL HISTORY: The patient smokes cigarettes, does not drink alcohol and does not use illicit drugs. MEDICATIONS: The patient is on aspirin 81 mg daily, carvedilol 12.5 mg daily, clonidine 0.1 mg by mouth every 8 hours, hydralazine 100 mg by mouth every 8 hours, Lasix 40 mg daily, Pravachol, pravastatin 40 mg at bedtime, glipizide 5 mg by mouth twice daily and before meals, isosorbide mononitrate 60 mg by mouth daily, ibuprofen 800 mg every 6 hours as needed for pain. ALLERGIES: There are no known drug allergies. REVIEW OF SYSTEMS: CONSTITUTIONAL: There is no fever, no chills, no diaphoresis. HEENT: There is no headache or sore throat. CARDIOVASCULAR SYSTEM: There is no chest pain or orthopnea. RESPIRATORY SYSTEM: There is no shortness of breath or cough. GASTROINTESTINAL SYSTEM: There is no nausea, no vomiting, but there is abdominal pain. There is no diarrhea, but there is constipation. NEUROLOGICAL SYSTEM: There is no numbness, no dizziness, no altered mental status. MUSCULOSKELETAL SYSTEM: There is no joint pain or swelling. DERMATOLOGICAL SYSTEM: There is no skin rash or itching. GENITOURINARY SYSTEM: There is no dysuria, hematuria, or flank pain. Rest of system review is normal. PHYSICAL EXAMINATION: GENERAL: At the time of exam, the patient was found to be alert, oriented x 3 and not in acute distress. VITAL SIGNS: The patient's initial vitals sign at the time of presentation shows temperature of 99.1 degrees Fahrenheit, pulse of 77, respirations 18, blood pressure of 193/108, O2 sat of 97% on room air. HEENT: Pupils are equal, round, reactive to light and accommodating. Extraocular muscles are intact. NECK: Supple with no JVD or carotid bruits. CARDIOVASCULAR SYSTEM: Showed normal first and second heart sounds, with no gallops or murmurs. RESPIRATORY SYSTEM: Show good air entry on both sides of the lung with no abnormal breath sounds. GASTROINTESTINAL SYSTEM: Show abdomen to be full, soft, with no tenderness, and no organomegaly listed and no rebound tenderness or rigidity. NEUROLOGICAL EXAM: Shows no focal deficit. MUSCULOSKELETAL SYSTEM: Shows no joint swelling or tenderness. DERMATOLOGICAL SYSTEM: Shows no skin rash. GENITOURINARY SYSTEM: Showing no costovertebral angle tenderness. LABORATORY DATA AND IMAGING STUDY: The patient had CT of the abdomen and pelvis done that shows fecal impaction and distended urinary bladder with bilateral adrenal hyperplasia as well as cardiomegaly. The patient also had chest and abdominal x-ray done that shows cardiomegaly with no active process in the chest and shows large amount of retained feces in the colon with no acute process in the abdomen and pelvis otherwise. LAB RESULTS: The patient had CBC done with elevated white count of 13,300 with low hemoglobin of 10.3 and low hematocrit of 31.1. CBC differential shows elevated neutrophil count of 92%. The patient's chemistry showed low potassium level of 3.5 with elevated BUN of and elevated creatinine of 2.5. Urinalysis was unremarkable. DIAGNOSES: 1. Urinary retention: 2. Chronic kidney disease. 3. Fecal impaction. 4. Constipation. PLAN: The patient will be admitted to medical floor. We would have a fecal disimpaction to be carried out by the nurse. The patient will be on Dulcolax suppository one rectally x 1 dose and will be on IV normal saline at 100 mL an hour for only total of 500 mL and the patient will continue GI consult with in by the Emergency Room physician. The patient needs to have a Urology consult, but there is no urological coverage. The patient will get the consult whenever urologist is available. The patient's home medications will be reconciled and started appropriately. JOB# [id number] OCN/NTS
--- NOTE | 2018-03-31 10:53 | Gastroenterology Consultation ---
<JOANNA FRIEDMAN - Last Filed: 03/31/18 11:16> History of Present Illness - Reason for Consult Consult date: 03/31/18 fecal impaction, constipation Requesting physician: GILBERT BRADY - History of Present Illness Patient is a 42 y/o male with PMH of CVA, DM, HTN, and chronic renal insufficiency who presented to the ED with c/o suprapubic abd pain and nausea. Abd CT revealed a fecal impaction. An enema was given w/o results. He then underwent a manual disimpaction per nursing. This morning pt was resting in bed w/o acute distress and family at bedside. He reports chronic constipation since last year with BM x 1/week. Takes OTC stool softeners at home w/o good results. This morning, he states his abd pain and nausea have now improved. Denies wt loss, vomiting, diarrhea, or signs of bleeding. No previous abd surgeries. No Fhx of GI cancers. Past History Past Medical History: diabetes, hypertension, stroke, other (renal insufficiency ) Past Surgical History: Other (heart cath 09/2017) Social history: smoking Medications and Allergies Allergies Allergy/AdvReac Type Severity Reaction Status Date / Time No Known Allergies Allergy Verified 10/02/17 18:06 Home Medications Medication Instructions Recorded Confirmed Last Taken Type Aspirin [Aspirin BABY CHEW TAB] 81 mg PO QDAY #30 tab.chew 09/29/17 01/06/18 1 Day Ago Rx ~01/05/18 Carvedilol [Coreg] 12.5 mg PO BID #60 tablet 09/29/17 01/06/18 1 Day Ago Rx ~01/05/18 cloNIDine [Catapres] 0.1 mg PO Q8H #90 tablet 09/29/17 01/06/18 1 Day Ago Rx ~01/05/18 hydrALAZINE [Apresoline TAB] 100 mg PO Q8HR #90 tab 09/29/17 01/06/18 1 Day Ago Rx ~01/05/18 Furosemide [Lasix TAB] 40 mg PO QDAY 11/05/17 01/06/18 1 Day Ago History ~01/05/18 Pravastatin [Pravachol] 40 mg PO QHS 11/05/17 01/06/18 1 Day Ago History ~01/05/18 glipiZIDE [Glipizide] 5 mg PO BIDAC 11/05/17 01/06/18 1 Day Ago History ~01/05/18 ISOSORBIDE MONOnitrate [Imdur ER] 60 mg PO QDAY #30 tablet 01/07/18 Unknown Rx Ibuprofen 800 mg PO Q6H PRN #20 tablet 01/19/18 Unknown Rx Active Meds: Active Medications Aspirin (Baby Aspirin) 81 mg PO QDAY [facility] Last Admin: 03/31/18 09:23 Dose: 81 mg Carvedilol (Coreg) 12.5 mg PO BID [facility] Last Admin: 03/31/18 09:23 Dose: 12.5 mg Clonidine HCl (Catapres) 0.1 mg PO Q8HR [facility] Last Admin: 03/31/18 07:30 Dose: 0.1 mg Dextrose (D50w (25gm) Syringe) 50 ml IV PRN PRN PRN Reason: Hypoglycemia Glipizide (Glucotrol) 5 mg PO BIDDIAB [facility] Last Admin: 03/31/18 09:23 Dose: 5 mg Hydralazine HCl (Apresoline) 100 mg PO Q8HR [facility] Sodium Chloride (Nacl 0.9% 1000 Ml) 1,000 mls @ 100 mls/hr IV DIRECT [facility] Stop: 03/31/18 16:59 Last Admin: 03/31/18 07:30 Dose: 100 mls/hr Insulin Human Regular (Humulin R) 0 units SUB-Q [facility]; Protocol Last Admin: 03/31/18 07:59 Dose: Not Given Insulin Human Regular (Humulin R) 0 units SUB-Q QHS [facility]; Protocol Isosorbide Mononitrate (Imdur) 60 mg PO QDAY [facility] Last Admin: 03/31/18 09:22 Dose: 60 mg Ondansetron HCl (Zofran) 4 mg IV Q8H PRN PRN Reason: Nausea And Vomiting Polyethylene Glycol (Miralax 3350) 17 gm PO BID [facility] Stop: 03/31/18 22:01 Last Admin: 03/31/18 09:24 Dose: 17 gm Pravastatin Sodium (Pravachol) 40 mg PO QHS [facility] Review of Systems - Review of Systems All systems: negative Gastrointestinal: constipation Exam - Constitutional Vital Signs: Temp Pulse Resp BP Pulse Ox 99.1 F 78 24 164/100 93 03/31/18 08:26 03/31/18 08:26 03/31/18 08:26 03/31/18 09:22 03/31/18 08:26 General appearance: no acute distress - Respiratory Respiratory: bilateral: CTA - Cardiovascular Rhythm: regular Heart Sounds: Present: S1 & S2 - Gastrointestinal General gastrointestinal: Present: soft, non-tender, non-distended, normal bowel sounds - Neurologic Neurological: alert and oriented x3 - Labs CBC & Chem 7: 03/30/18 22:14 03/30/18 22:14 Lab Results: Laboratory Results - last 24 hr 03/30/18 03/30/18 03/30/18 22:14 22:14 22:16 WBC 13.3 H RBC 3.86 Hgb 10.3 L Hct 31.1 L MCV 81 L MCH 27 L MCHC 33 RDW 16.9 H Plt Count 244 Add Manual Diff Complete Total Counted 100 Seg Neuts % (Manual) 92.0 H Band Neutrophils % 0 Lymphocytes % (Manual) 6.0 L Reactive Lymphs % (Man) 0 Monocytes % (Manual) 2.0 Eosinophils % (Manual) 0 Basophils % (Manual) 0 Metamyelocytes % 0 Myelocytes % 0 Promyelocytes % 0 Blast Cells % 0 Nucleated RBC % Not Reportable Seg Neutrophils # Man 12.2 H Band Neutrophils # 0.0 Lymphocytes # (Manual) 0.8 L Abs React Lymphs (Man) 0.0 Monocytes # (Manual) 0.3 Eosinophils # (Manual) 0.0 Basophils # (Manual) 0.0 Metamyelocytes # 0.0 Myelocytes # 0.0 Promyelocytes # 0.0 Blast Cells # 0.0 WBC Morphology Not Reportable Hypersegmented Neuts Not Reportable Hyposegmented Neuts Not Reportable Hypogranular Neuts Not Reportable Smudge Cells Not Reportable Toxic Granulation Not Reportable Toxic Vacuolation Not Reportable Dohle Bodies Not Reportable Pelger-Huet Anomaly Not Reportable Mone Rods Not Reportable Platelet Estimate Consistent w auto Clumped Platelets Not Reportable Plt Clumps, EDTA Not Reportable Large Platelets Not Reportable Giant Platelets Not Reportable Platelet Satelliting Not Reportable Plt Morphology Comment Not Reportable RBC Morphology Not Reportable Dimorphic RBCs Not Reportable Polychromasia Not Reportable Hypochromasia Not Reportable Poikilocytosis Not Reportable Anisocytosis Not Reportable Microcytosis Not Reportable Macrocytosis Not Reportable Spherocytes Not Reportable Pappenheimer Bodies Not Reportable Sickle Cells Not Reportable Target Cells Not Reportable Tear Drop Cells Not Reportable Ovalocytes Not Reportable Helmet Cells Not Reportable Espinal-Empire Bodies Not Reportable [place] Rings Not Reportable [place] Cells Not Reportable Bite Cells Not Reportable Crenated Cell Not Reportable Elliptocytes Not Reportable Acanthocytes (Spur) Not Reportable Rouleaux Not Reportable Hemoglobin C Crystals Not Reportable Schistocytes Not Reportable Malaria parasites Not Reportable Rich Bodies Not Reportable Hem Pathologist Commnt No Sodium 137 Potassium 3.5 L Chloride 98.3 Carbon Dioxide 22 Anion Gap 20 BUN 40 H Creatinine 2.5 H Estimated GFR 34 BUN/Creatinine Ratio 16 Glucose 159 H Calcium 8.8 Total Bilirubin 0.70 AST 19 ALT 41 Alkaline Phosphatase 117 Total Protein 7.2 Albumin 3.9 Albumin/Globulin Ratio 1.2 Lipase 19 Urine Color Urine Turbidity Urine pH Ur Specific [place] Urine Protein Urine Glucose (UA) Urine Ketones Urine Blood Urine Nitrite Urine Bilirubin Urine Urobilinogen Ur Leukocyte Esterase Urine WBC (Auto) Urine RBC (Auto) Urine Bacteria (Auto) Urine Mucus 03/31/18 01:07 WBC RBC Hgb Hct MCV MCH MCHC RDW Plt Count Add Manual Diff Total Counted Seg Neuts % (Manual) Band Neutrophils % Lymphocytes % (Manual) Reactive Lymphs % (Man) Monocytes % (Manual) Eosinophils % (Manual) Basophils % (Manual) Metamyelocytes % Myelocytes % Promyelocytes % Blast Cells % Nucleated RBC % Seg Neutrophils # Man Band Neutrophils # Lymphocytes # (Manual) Abs React Lymphs (Man) Monocytes # (Manual) Eosinophils # (Manual) Basophils # (Manual) Metamyelocytes # Myelocytes # Promyelocytes # Blast Cells # WBC Morphology Hypersegmented Neuts Hyposegmented Neuts Hypogranular Neuts Smudge Cells Toxic Granulation Toxic Vacuolation Dohle Bodies Pelger-Huet Anomaly Mone Rods Platelet Estimate Clumped Platelets Plt Clumps, EDTA Large Platelets Giant Platelets Platelet Satelliting Plt Morphology Comment RBC Morphology Dimorphic RBCs Polychromasia Hypochromasia Poikilocytosis Anisocytosis Microcytosis Macrocytosis Spherocytes Pappenheimer Bodies Sickle Cells Target Cells Tear Drop Cells Ovalocytes Helmet Cells Espinal-Empire Bodies [place] Rings Syl Cells Bite Cells Crenated Cell Elliptocytes Acanthocytes (Spur) Rouleaux Hemoglobin C Crystals Schistocytes Malaria parasites Rich Bodies Hem Pathologist Commnt Sodium Potassium Chloride Carbon Dioxide Anion Gap BUN Creatinine Estimated GFR BUN/Creatinine Ratio Glucose Calcium Total Bilirubin AST ALT Alkaline Phosphatase Total Protein Albumin Albumin/Globulin Ratio Lipase Urine Color Yellow Urine Turbidity Clear Urine pH 5.0 Ur Specific [place] 1.011 Urine Protein 30 mg/dl Urine Glucose (UA) Neg Urine Ketones Neg Urine Blood Neg Urine Nitrite Neg Urine Bilirubin Neg Urine Urobilinogen < 2.0 Ur Leukocyte Esterase Neg Urine WBC (Auto) 1.0 Urine RBC (Auto) 6.0 Urine Bacteria (Auto) 1+ Urine Mucus Few Assessment and Plan 1.fecal impaction 2.constipation 3.abd pain -clinically pt reports abd pain and nausea have improved s/p manual disimpaction -no BM this am -recommend a gastrografin enema -continue Miralax -continue supportive care -further recommendations to follow <JACE HAWTHORNE - Last Filed: 03/31/18 21:10> Medications and Allergies Active Meds: Active Medications Aspirin (Baby Aspirin) 81 mg PO QDAY [facility] Last Admin: 03/31/18 09:23 Dose: 81 mg Carvedilol (Coreg) 12.5 mg PO BID [facility] Last Admin: 03/31/18 09:23 Dose: 12.5 mg Clonidine HCl (Catapres) 0.1 mg PO Q8HR [facility] Last Admin: 03/31/18 14:43 Dose: 0.1 mg Dextrose (D50w (25gm) Syringe) 50 ml IV PRN PRN PRN Reason: Hypoglycemia Glipizide (Glucotrol) 5 mg PO BIDDIAB [facility] Last Admin: 03/31/18 17:31 Dose: 5 mg Hydralazine HCl (Apresoline) 100 mg PO Q8HR [facility] Last Admin: 03/31/18 14:42 Dose: 100 mg Insulin Human Regular (Humulin R) 0 units SUB-Q [facility]; Protocol Last Admin: 03/31/18 17:23 Dose: Not Given Insulin [facility] Regular ([facility] R) [facility] Isosorbide Mononitrate (Imdur) 60 mg PO QDAY [facility] Last Admin: 03/31/18 09:22 Dose: 60 mg Ondansetron HCl (Zofran) 4 mg IV Q8H PRN PRN Reason: Nausea And Vomiting Polyethylene Glycol (Miralax 3350) 17 gm PO BID [facility] Stop: 03/31/18 22:01 Last Admin: 03/31/18 09:24 Dose: 17 gm Pravastatin Sodium (Pravachol) 40 mg PO QHS [facility] Exam - Constitutional Vital Signs: Temp Pulse Resp BP Pulse Ox 98.8 F 75 20 146/90 95 03/31/18 15:40 03/31/18 15:40 03/31/18 15:40 03/31/18 15:40 03/31/18 15:40 - Labs CBC & Chem 7: 03/30/18 22:14 03/30/18 22:14 Lab Results: Laboratory Results - last 24 hr 03/30/18 03/30/18 03/30/18 22:14 22:14 22:16 WBC 13.3 H RBC 3.86 Hgb 10.3 L Hct 31.1 L MCV 81 L MCH 27 L MCHC 33 RDW 16.9 H Plt Count 244 Add Manual Diff Complete Total Counted 100 Seg Neuts % (Manual) 92.0 H Band Neutrophils % 0 Lymphocytes % (Manual) 6.0 L Reactive Lymphs % (Man) 0 Monocytes % (Manual) 2.0 Eosinophils % (Manual) 0 Basophils % (Manual) 0 Metamyelocytes % 0 Myelocytes % 0 Promyelocytes % 0 Blast Cells % 0 Nucleated RBC % Not Reportable Seg Neutrophils # Man 12.2 H Band Neutrophils # 0.0 Lymphocytes # (Manual) 0.8 L Abs React Lymphs (Man) 0.0 Monocytes # (Manual) 0.3 Eosinophils # (Manual) 0.0 Basophils # (Manual) 0.0 Metamyelocytes # 0.0 Myelocytes # 0.0 Promyelocytes # 0.0 Blast Cells # 0.0 WBC Morphology Not Reportable Hypersegmented Neuts Not Reportable Hyposegmented Neuts Not Reportable Hypogranular Neuts Not Reportable Smudge Cells Not Reportable Toxic Granulation Not Reportable Toxic Vacuolation Not Reportable Dohle Bodies Not Reportable Pelger-Huet Anomaly Not Reportable Mone Rods Not Reportable Platelet Estimate Consistent w auto Clumped Platelets Not Reportable Plt Clumps, EDTA Not Reportable Large Platelets Not Reportable Giant Platelets Not Reportable Platelet Satelliting Not Reportable Plt Morphology Comment Not Reportable RBC Morphology Not Reportable Dimorphic RBCs Not Reportable Polychromasia Not Reportable Hypochromasia Not Reportable Poikilocytosis Not Reportable Anisocytosis Not Reportable Microcytosis Not Reportable Macrocytosis Not Reportable Spherocytes Not Reportable Pappenheimer Bodies Not Reportable Sickle Cells Not Reportable Target Cells Not Reportable Tear Drop Cells Not Reportable Ovalocytes Not Reportable Helmet Cells Not Reportable Espinal-Empire Bodies Not Reportable [place] Rings Not Reportable [place] Cells Not Reportable Bite Cells Not Reportable Crenated Cell Not Reportable Elliptocytes Not Reportable Acanthocytes (Spur) Not Reportable Rouleaux Not Reportable Hemoglobin C Crystals Not Reportable Schistocytes Not Reportable Malaria parasites Not Reportable Rich Bodies Not Reportable Hem Pathologist Commnt No Sodium 137 Potassium 3.5 L Chloride 98.3 Carbon Dioxide 22 Anion Gap 20 BUN 40 H Creatinine 2.5 H Estimated GFR 34 BUN/Creatinine Ratio 16 Glucose 159 H POC Glucose Calcium 8.8 Total Bilirubin 0.70 AST 19 ALT 41 Alkaline Phosphatase 117 Total Protein 7.2 Albumin 3.9 Albumin/Globulin Ratio 1.2 Lipase 19 Urine Color Urine Turbidity Urine pH Ur Specific [place] Urine Protein Urine Glucose (UA) Urine Ketones Urine Blood Urine Nitrite Urine Bilirubin Urine Urobilinogen Ur Leukocyte Esterase Urine WBC (Auto) Urine RBC (Auto) Urine Bacteria (Auto) Urine Mucus 03/31/18 03/31/18 03/31/18 01:07 07:57 11:21 WBC RBC Hgb Hct MCV MCH MCHC RDW Plt Count Add Manual Diff Total Counted Seg Neuts % (Manual) Band Neutrophils % Lymphocytes % (Manual) Reactive Lymphs % (Man) Monocytes % (Manual) Eosinophils % (Manual) Basophils % (Manual) Metamyelocytes % Myelocytes % Promyelocytes % Blast Cells % Nucleated RBC % Seg Neutrophils # Man Band Neutrophils # Lymphocytes # (Manual) Abs React Lymphs (Man) Monocytes # (Manual) Eosinophils # (Manual) Basophils # (Manual) Metamyelocytes # Myelocytes # Promyelocytes # Blast Cells # WBC Morphology Hypersegmented Neuts Hyposegmented Neuts Hypogranular Neuts Smudge Cells Toxic Granulation Toxic Vacuolation Dohle Bodies Pelger-Huet Anomaly Mone Rods Platelet Estimate Clumped Platelets Plt Clumps, EDTA Large Platelets Giant Platelets Platelet Satelliting Plt Morphology Comment RBC Morphology Dimorphic RBCs Polychromasia Hypochromasia Poikilocytosis Anisocytosis Microcytosis Macrocytosis Spherocytes Pappenheimer Bodies Sickle Cells Target Cells Tear Drop Cells Ovalocytes Helmet Cells Espinal-Empire Bodies [place] Rings Syl Cells Bite Cells Crenated Cell Elliptocytes Acanthocytes (Spur) Rouleaux Hemoglobin C Crystals Schistocytes Malaria parasites Rich Bodies Hem Pathologist Commnt Sodium Potassium Chloride Carbon Dioxide Anion Gap BUN Creatinine Estimated GFR BUN/Creatinine Ratio Glucose POC Glucose 137 H 180 H Calcium Total Bilirubin AST ALT Alkaline Phosphatase Total Protein Albumin Albumin/Globulin Ratio Lipase Urine Color Yellow Urine Turbidity Clear Urine pH 5.0 Ur Specific [place] 1.011 Urine Protein 30 mg/dl Urine Glucose (UA) Neg Urine Ketones Neg Urine Blood Neg Urine Nitrite Neg Urine Bilirubin Neg Urine Urobilinogen < 2.0 Ur Leukocyte Esterase Neg Urine WBC (Auto) 1.0 Urine RBC (Auto) 6.0 Urine Bacteria (Auto) 1+ Urine Mucus Few 03/31/18 16:48 WBC RBC Hgb Hct MCV MCH MCHC RDW Plt Count Add Manual Diff Total Counted Seg Neuts % (Manual) Band Neutrophils % Lymphocytes % (Manual) Reactive Lymphs % (Man) Monocytes % (Manual) Eosinophils % (Manual) Basophils % (Manual) Metamyelocytes % Myelocytes % Promyelocytes % Blast Cells % Nucleated RBC % Seg Neutrophils # Man Band Neutrophils # Lymphocytes # (Manual) Abs React Lymphs (Man) Monocytes # (Manual) Eosinophils # (Manual) Basophils # (Manual) Metamyelocytes # Myelocytes # Promyelocytes # Blast Cells # WBC Morphology Hypersegmented Neuts Hyposegmented Neuts Hypogranular Neuts Smudge Cells Toxic Granulation Toxic Vacuolation Dohle Bodies Pelger-Huet Anomaly Mone Rods Platelet Estimate Clumped Platelets Plt Clumps, EDTA Large Platelets Giant Platelets Platelet Satelliting Plt Morphology Comment RBC Morphology Dimorphic RBCs Polychromasia Hypochromasia Poikilocytosis Anisocytosis Microcytosis Macrocytosis Spherocytes Pappenheimer Bodies Sickle Cells Target Cells Tear Drop Cells Ovalocytes Helmet Cells Espinal-Empire Bodies [place] Rings Syl Cells Bite Cells Crenated Cell Elliptocytes Acanthocytes (Spur) Rouleaux Hemoglobin C Crystals Schistocytes Malaria parasites Rich Bodies Hem Pathologist Commnt Sodium Potassium Chloride Carbon Dioxide Anion Gap BUN Creatinine Estimated GFR BUN/Creatinine Ratio Glucose POC Glucose 72 Calcium Total Bilirubin AST ALT Alkaline Phosphatase Total Protein Albumin Albumin/Globulin Ratio Lipase Urine Color Urine Turbidity Urine pH Ur Specific [place] Urine Protein Urine Glucose (UA) Urine Ketones Urine Blood Urine Nitrite Urine Bilirubin Urine Urobilinogen Ur Leukocyte Esterase Urine WBC (Auto) Urine RBC (Auto) Urine Bacteria (Auto) Urine Mucus Assessment and Plan pt seen and examined. agree with note by Joanna Friedman. Abdominal pain significant improved after perez catheter. Gastrograffin enema (diagnostic and therapeutic) as above. Should likely have colonoscopy (age, ) for screening purposes which can be done as outpatient if no significant findings on gastrograffin.
[2018-03-31] MEDS: APRESOLINE PO SCH (14:42)
[2018-04-01] MEDS: PRAVACHOL PO SCH ×2 (00:24→22:08)
[2018-04-01] MEDS: APRESOLINE PO SCH ×4 (00:25→22:09)
[2018-04-01] MEDS: COREG PO SCH ×3 (00:25→22:08)
[2018-04-01] MEDS: CATAPRES PO SCH ×5 (00:25→22:09)
[2018-04-01] MEDS: MIRALAX 3350 PO SCH (03:06)
[2018-04-01] MEDS: HumuLIN R SUB-Q SCH ×5 (03:08→22:06)
[2018-04-01 07:01] LABS: Hematocrit 27.2 % (35.5-45.6); Hemoglobin 8.8 gm/dl (11.8-15.2); Mean Corpuscular HGB Conc 32 % (32-34); Mean Corpuscular Hemoglobin 27 pg (28-32); Mean Corpuscular Volume 82 fl (84-94); Platelet Count 214 K/mm3 (140-440); Red Blood Count 3.33 M/mm3 (3.65-5.03)
[2018-04-01 07:30] LABS: Calcium 8.3 mg/dL (8.4-10.2)
[2018-04-01] MEDS ORDERED: K-DUR PO ONE ×2 (09:00→12:00)
--- NOTE | 2018-04-01 11:23 | Fluoroscopy Report ---
GASTROGRAFIN ENEMA History: Constipation, fecal impaction Findings: Hydraulic Oil Tool Operator film of the abdomen demonstrates moderate to severe fecal retention throughout the colon. 12 fluoroscopic images were captured. A rectal tube was inserted and secured by balloon inflation to deliver 750 cc of Gastrografin into the colon. There were numerous filling defects consistent with stool. This is not a diagnostic exam, however, no mass is suspected in the distal colon. Impression: Successful therapeutic Gastrografin enema. Moderate to severe constipation.
[2018-04-01] MEDS: BABY ASPIRIN PO SCH (11:24)
[2018-04-01] MEDS: IMDUR PO SCH (11:24)
[2018-04-01] MEDS: GLUCOTROL PO SCH (11:26)
[2018-04-01] MEDS: HEPARIN SUB-Q SCH ×3 (11:26→22:08)
[2018-04-01] MEDS ORDERED: APRESOLINE IV PRN (14:43)
[2018-04-01] MEDS ORDERED: CATAPRES PO SCH (14:44)
[2018-04-01] MEDS: NORVASC PO SCH (15:07)
--- NOTE | 2018-04-01 15:29 | Progress Note ---
Assessment and Plan Stool impaction - resolved with enema and bowel regimen Urinary retention - s/p perez in the ER, likely BPH ? - will d/c perez and will monitor UOP History of CVA, aspirin statin Diabetes mellitus type 2, cont insulin regimen Hypertension, malignant - will further adjust BP meds - will add amlodipine and will increase clonidine ISABEL on CKD, baseline creatinine around 2.1-2.2 - will cont to monitor, likely from dehydration with vasomotor nephropathy Brief history: Patient is a 42 y/o male with PMH of CVA, DM, HTN, and chronic renal insufficiency who presented to the ED with c/o suprapubic abd pain and nausea. Abd CT revealed a fecal impaction. An enema was given w/o results. He then underwent a manual disimpaction per nursing. In the ER patient also complained of inability to urinate, he was placed on Perez catheter in the ER. Radiological test: Chest/abdomen xry Abdomen/pelvis CT Barrium enema Hospitalist Physical exam: GENERAL: well-developed and well-nourished lying on bed appeared to be in no discomfort. HEENT: Normocephalic. Atraumatic. No conjunctival congestion or icterus. Patient has moist mucous membranes. NECK: Supple. Trachea midline. CHEST/LUNGS: Clear to auscultated bilaterally, breathing nonlabored. No wheezes crackles or rhonchi. HEART/CARDIOVASCULAR: Regular in rate and rhythm. S1 and S2 positive. ABDOMEN: Abdomen is soft, nontender. Patient has normal bowel sounds. SKIN: There is no rash. Warm and dry. NEURO: No focal motor deficit. Follows command. MUSCULOSKELETAL: No joint effusion or tenderness. EXTRIMITY: No edema, no cyanosis or clubbing. PSYCH: Cooperative. Subjective Date of service: 04/01/18 Interval history: Patient seen and examined. Medical records and medication list reviewed. No acute event overnight noted by the RN. Patient denies any chest pain or difficulty breathing. Patient is tolerating diet. worried that if perez taken out he may not be able to urinate, had BM today Discussed plan of care at bedside with patient. Objective - Constitutional Vitals: Vital Signs - 12hr 04/01/18 04/01/18 04/01/18 07:47 11:11 11:24 Temperature 98.8 F 98.8 F Pulse Rate 80 84 Respiratory 24 24 Rate Blood Pressure 190/103 212/124 200/110 O2 Sat by Pulse 94 97 Oximetry 04/01/18 15:07 Temperature Pulse Rate 120 H Respiratory Rate Blood Pressure 177/100 O2 Sat by Pulse Oximetry - Labs CBC & Chem 7: 04/02/18 08:27 04/02/18 08:27 Labs: Abnormal lab results 03/31/18 03/31/18 04/01/18 Range/Units 07:57 22:06 06:20 RBC 3.33 L (3.65-5.03) M/mm3 Hgb 8.8 L (11.8-15.2) gm/dl Hct 27.2 L (35.5-45.6) % MCV 82 L (84-94) fl MCH 27 L (28-32) pg RDW 17.0 H (13.2-15.2) % Potassium (3.6-5.0) mmol/L BUN (9-20) mg/dL Creatinine (0.8-1.5) mg/dL Glucose (75-100) mg/dL POC Glucose 137 H 224 H (70-105) Calcium (8.4-10.2) mg/dL 04/01/18 04/01/18 04/01/18 Range/Units 06:20 06:38 11:10 RBC (3.65-5.03) M/mm3 Hgb (11.8-15.2) gm/dl Hct (35.5-45.6) % MCV (84-94) fl MCH (28-32) pg RDW (13.2-15.2) % Potassium 3.2 L (3.6-5.0) mmol/L BUN 35 H (9-20) mg/dL Creatinine 2.5 H (0.8-1.5) mg/dL Glucose 114 H (75-100) mg/dL POC Glucose 122 H 217 H (70-105) Calcium 8.3 L (8.4-10.2) mg/dL
[2018-04-02] MEDS: CATAPRES PO SCH ×2 (05:42→14:54)
[2018-04-02] MEDS: HEPARIN SUB-Q SCH (05:50)
[2018-04-02] MEDS: APRESOLINE PO SCH ×2 (05:51→14:54)
[2018-04-02 09:15] LABS: Hematocrit 29.3 % (35.5-45.6); Hemoglobin 9.8 gm/dl (11.8-15.2); Mean Corpuscular HGB Conc 34 % (32-34); Mean Corpuscular Hemoglobin 27 pg (28-32); Mean Corpuscular Volume 81 fl (84-94); Platelet Count 221 K/mm3 (140-440); Red Blood Count 3.61 M/mm3 (3.65-5.03)
[2018-04-02] MEDS: HumuLIN R SUB-Q SCH ×2 (09:15→13:11)
[2018-04-02 09:28] LABS: Calcium 8.7 mg/dL (8.4-10.2)
--- NOTE | 2018-04-02 10:59 | Gastroenterology Progress Note ---
Assessment and Plan 1.fecal impaction 2.constipation 3.abd pain-resolved -s/p successful therapeutic gastrografin enema yesterday revealing severe constipation -clinically pt states feeling much better with no abd pain or N/V -tolerating diet -recommend a daily bowel regimen with Miralax 1-2x/day -pt okay to be d/c per GI standpoint with follow up appt to schedule an outpatient colonoscopy -will sign off, please call if needed Subjective Date of service: 04/02/18 Principal diagnosis: fecal impaction/constipation Interval history: Patient sitting on side of the bed this am. Reports constipation improved following gastrografin enema yesterday with BMs x 4. Denies abd pain or N/V. Tolerating diet. Objective - Constitutional Vitals: Temp Pulse Resp BP Pulse Ox 98.4 F 71 20 147/92 96 04/02/18 07:41 04/02/18 05:42 04/02/18 07:41 04/02/18 07:41 04/01/18 23:00 General appearance: no acute distress - Respiratory Respiratory: bilateral: CTA - Cardiovascular Rhythm: regular Heart Sounds: Present: S1 & S2 - Gastrointestinal General gastrointestinal: Present: soft, non-tender, non-distended, normal bowel sounds - Neurologic Neurological: alert and oriented x3 - Labs CBC & Chem 7: 04/02/18 08:27 04/02/18 08:27 Labs: Laboratory Results - last 24 hr 04/01/18 04/01/18 04/01/18 11:10 16:36 21:14 WBC RBC Hgb Hct MCV MCH MCHC RDW Plt Count Sodium Potassium Chloride Carbon Dioxide Anion Gap BUN Creatinine Estimated GFR BUN/Creatinine Ratio Glucose POC Glucose 217 H 117 H 244 H Calcium 04/02/18 04/02/18 04/02/18 06:17 08:27 08:27 WBC 8.5 RBC 3.61 L Hgb 9.8 L Hct 29.3 L MCV 81 L MCH 27 L MCHC 34 RDW 17.0 H Plt Count 221 Sodium 143 Potassium 3.8 Chloride 103.1 Carbon Dioxide 26 Anion Gap 18 BUN 33 H Creatinine 2.4 H Estimated GFR 36 BUN/Creatinine Ratio 14 Glucose 137 H POC Glucose 134 H Calcium 8.7
[2018-04-02] MEDS ORDERED: MIRALAX 3350 PO SCH (12:00)
[2018-04-02] MEDS: IMDUR PO SCH (12:10)
[2018-04-02] MEDS: BABY ASPIRIN PO SCH (12:11)
[2018-04-02] MEDS: NORVASC PO SCH (12:11)
[2018-04-02] MEDS: COREG PO SCH (12:11)
--- NOTE | 2018-04-02 13:10 | Discharge Summary ---
Providers - Providers Date of Admission: 03/31/18 06:30 Date of discharge: 04/02/18 Attending physician: DARIO MERCEDES 03/31/18 05:08 Consult to Physician [CONS] Urgent Comment: Consulting Provider: VIJAY MCCAULEY Physician Instructions: Reason For Exam: fecal impaction, constipation Primary care physician: DIRECTOR OF LABOR AND DELIVERY Hospitalization Condition: Stable Hospital course: Brief history: Patient is a 42 y/o male with PMH of CVA, DM, HTN, and chronic renal insufficiency who presented to the ED with c/o suprapubic abd pain and nausea. Abd CT revealed a fecal impaction. An enema was given w/o results. He then underwent a manual disimpaction per nursing. In the ER patient also complained of inability to urinate, he was placed on Perez catheter in the ER. His catheter was removed and a urine output monitored, patient did not report any further problem with voiding urine. His creatinine was slightly elevated to 2.5. He was placed on IV fluid and monitor renal function. His blood pressure was elevated and uncontrolled. His BP medications were resumed and adjusted as needed. Patient was then discharged home in stable condition. Discharge diagnosis and management: Stool impaction - resolved with enema and bowel regimen - Barium enema was unremarkable - GI was following the patient and patient will have outpatient colonoscopy Urinary retention - s/p perez in the ER, but DC'd Perez before discharge and had good urine output History of CVA, cont aspirin statin Diabetes mellitus type 2, cont home insulin regimen Hypertension, malignant -Presumed homemade and further adjusted medication - added amlodipine and increased dose of clonidine ISABEL on CKD, baseline creatinine around 2.1-2.2 - likely from dehydration with vasomotor nephropathy - Creatinine remained stable from a 2.5-2.4 Radiological test: Abdomen/pelvis CT: Showed Fecal impaction, distended urinary bladder with normal -appearing prostate, bilateral adrenal hyperplasia, cardiomegaly. Barrium enema, Chest/abdomen xry Hospitalist Physical exam: GENERAL: well-developed and well-nourished AAM lying on bed appeared to be in no discomfort. HEENT: Normocephalic. Atraumatic. No conjunctival congestion or icterus. Patient has moist mucous membranes. NECK: Supple. Trachea midline. CHEST/LUNGS: Clear to auscultated bilaterally, breathing nonlabored. No wheezes crackles or rhonchi. HEART/CARDIOVASCULAR: Regular in rate and rhythm. S1 and S2 positive. ABDOMEN: Abdomen is soft, nontender. Patient has normal bowel sounds. SKIN: There is no rash. Warm and dry. NEURO: No focal motor deficit. Follows command. MUSCULOSKELETAL: No joint effusion or tenderness. EXTRIMITY: No edema, no cyanosis or clubbing. PSYCH: Cooperative. Disposition: - TO HOME OR SELFCARE Time spent for discharge: 32 minutes Core Measure Documentation - Palliative Care Palliative Care/ Comfort Measures: Not Applicable - Core Measures Any of the following diagnoses?: none Exam - Constitutional Vitals: Temp Pulse Resp BP Pulse Ox 98.4 F 71 20 147/92 96 04/02/18 07:41 04/02/18 05:42 04/02/18 07:41 04/02/18 12:11 04/01/18 23:00 Plan Activity: advance as tolerated Weight Bearing Status: Weight Bear as Tolerated Diet: diabetic, renal Follow up with: PRIMARY CARE, [Primary Care Provider] - 7 Days Prescriptions: amLODIPine [Norvasc] 10 mg PO QDAY #30 tablet cloNIDine [Catapres] 0.2 mg PO Q8HR #60 tablet
[2018-04-02 14:55] VITALS: BP 145/92
== END 2018-04-02 15:00 | disposition home or self-care (01) | DRG 388 ==
LOC: ED 21:21 → 3A 03-31 06:30
PROVIDERS: ADMIT Internal Medicine; ATTEND Internal Medicine
DX: K56.41 Fecal impaction (principal); N17.0 Acute kidney failure with tubular necrosis; R33.9 Retention of urine, unspecified; N18.9 Chronic kidney disease, unspecified; I12.9 Hypertensive chronic kidney disease with stage 1 through stage 4 chronic kidney disease, or unspecified chronic kidney disease; E11.22 Type 2 diabetes mellitus with diabetic chronic kidney disease; F17.210 Nicotine dependence, cigarettes, uncomplicated; Z86.73 Personal history of transient ischemic attack (TIA), and cerebral infarction without residual deficits; Z79.84 Long term (current) use of oral hypoglycemic drugs
CPT/HCPCS: 36415; 74022; 74176; 74270; 80048; 80053; 81001; 82962; 83690; 85007; 85025; 85027; 96374; 96375; 99285; 99406; A9270-GY; J0360; J1644; J1815; J2270; J2405; J7030; Q9963

== ENCOUNTER 2019-05-24 08:10 | Inpatient (IN) | payer OTHER ==
[2019-05-24] MEDS ORDERED: ASPIRIN PO ONE ×2 (08:21→10:06)
[2019-05-24] MEDS ORDERED: ASPIRIN ONE (08:24)
--- NOTE | 2019-05-24 10:05 | Emergency Department Report ---
ED Chest Pain HPI - General Chief Complaint: Chest Pain Stated Complaint: DIZZY/ARM WEAKNESS/CHEST PAIN Time Seen by Provider: 05/24/19 09:09 Source: patient Mode of arrival: Ambulatory Limitations: No Limitations - History of Present Illness Initial Comments: 43-year-old man states he was preparing to go to [employer] this a.m. when he experienced chest pain. Pain was in the central aspect of his chest and didn't per se radiate to his arms but he states "both my arms felt weak". He states that the pain was sharp and like gas or heartburn. He had not experienced something like that before. He does have a history of congestive heart failure. He states that he had a cardiac catheterization out of town approximately 2 years ago. He states that this showed some blockage but medical therapy was recommended only. He has never had a stent. He denies nausea vomiting sweating or shortness of breath with this episode. His chest discomfort resolved after approximately one half hour. Onset: during rest Pain Location: substernal Pain Radiation: other Severity: moderate Quality: sharp ("like heartburn" ) Consistency: now resolved Improves With: nothing Worsens With: nothing re: denies: nausea, vomting, diaphoresis, dyspnea, sense of impending doom Other Symptoms: denies: cough, fever, syncope Treatments Prior to Arrival: none Aspirin use within the Past 7 Days: (0) No - Related Data Home Medications Medication Instructions Recorded Confirmed Last Taken Pravastatin [Pravachol] 40 mg PO QHS 11/05/17 01/06/18 1 Day Ago ~01/05/18 glipiZIDE [Glipizide] 5 mg PO BIDAC 11/05/17 01/06/18 1 Day Ago ~01/05/18 Previous Rx's Medication Instructions Recorded Last Taken Type Aspirin [Aspirin BABY CHEW TAB] 81 mg PO QDAY #30 tab.chew 09/29/17 1 Day Ago Rx ~01/05/18 Carvedilol [Coreg] 12.5 mg PO BID #60 tablet 09/29/17 1 Day Ago Rx ~01/05/18 hydrALAZINE [Apresoline TAB] 100 mg PO Q8HR #90 tab 09/29/17 1 Day Ago Rx ~01/05/18 ISOSORBIDE MONOnitrate [Imdur ER] 60 mg PO QDAY #30 tablet 01/07/18 Unknown Rx Polyethylene Glycol 3350 [Miralax 17 gm PO BID powd.pack 04/02/18 Unknown Rx 3350] amLODIPine [Norvasc] 10 mg PO QDAY #30 tablet 04/02/18 Unknown Rx cloNIDine [Catapres] 0.2 mg PO Q8HR #60 tablet 04/02/18 Unknown Rx Bisacodyl [Dulcolax suppos] 10 mg PO QDAY PRN #10 11/24/18 Unknown Rx Docusate Sodium [Colace CAP] 100 mg PO BID #30 capsule 11/24/18 Unknown Rx Allergies Allergy/AdvReac Type Severity Reaction Status Date / Time No Known Allergies Allergy Verified 10/02/17 18:06 Heart Score - HEART Score History: Moderately suspicious EKG: Non-specific Age: 45-65 Risk factors: > 3 risk factors or hx of atherosclerotic disease Troponin: 1-3x normal limit HEART Score: 6 - Critical Actions Critical Actions: 4-6 pts:12-16.6% risk of adverse cardiac event. Should be admitted ED Review of Systems ROS: Stated complaint: DIZZY/ARM WEAKNESS/CHEST PAIN Other details as noted in HPI Constitutional: denies: chills, fever Eyes: denies: eye pain, eye discharge, vision change ENT: denies: ear pain, throat pain Respiratory: denies: cough, shortness of breath, wheezing Cardiovascular: chest pain. denies: palpitations Endocrine: no symptoms reported Gastrointestinal: denies: abdominal pain, nausea, diarrhea Genitourinary: denies: urgency, dysuria Musculoskeletal: denies: back pain, joint swelling, arthralgia Skin: denies: rash, lesions Neurological: denies: headache, weakness, paresthesias Psychiatric: denies: anxiety, depression Hematological/Lymphatic: denies: easy bleeding, easy bruising ED Past Medical Hx - Past Medical History Previous Medical History?: Yes Hx Hypertension: Yes Hx CVA: Yes Hx Congestive Heart Failure: No Hx Diabetes: Yes Hx Deep Vein Thrombosis: No Hx Renal Disease: Yes (chronic renal insufficiency) Hx Arthritis: No Hx Asthma: No Hx COPD: No Additional medical history: Coronary artery disease medically treated - Surgical History Past Surgical History?: Yes Additional Surgical History: heart cath 09/2017 - Social History Smoking Status: Current Every Day Smoker Substance Use Type: Alcohol, Prescribed - Medications Home Medications: Home Medications Medication Instructions Recorded Confirmed Last Taken Type Aspirin [Aspirin BABY CHEW TAB] 81 mg PO QDAY #30 tab.chew 09/29/17 01/06/18 1 Day Ago Rx ~01/05/18 Carvedilol [Coreg] 12.5 mg PO BID #60 tablet 09/29/17 01/06/18 1 Day Ago Rx ~01/05/18 hydrALAZINE [Apresoline TAB] 100 mg PO Q8HR #90 tab 09/29/17 01/06/18 1 Day Ago Rx ~01/05/18 Pravastatin [Pravachol] 40 mg PO QHS 11/05/17 01/06/18 1 Day Ago History ~01/05/18 glipiZIDE [Glipizide] 5 mg PO BIDAC 11/05/17 01/06/18 1 Day Ago History ~01/05/18 ISOSORBIDE MONOnitrate [Imdur ER] 60 mg PO QDAY #30 tablet 01/07/18 Unknown Rx Polyethylene Glycol 3350 [Miralax 17 gm PO BID powd.pack 04/02/18 Unknown Rx 3350] amLODIPine [Norvasc] 10 mg PO QDAY #30 tablet 04/02/18 Unknown Rx cloNIDine [Catapres] 0.2 mg PO Q8HR #60 tablet 04/02/18 Unknown Rx Bisacodyl [Dulcolax suppos] 10 mg PO QDAY PRN #10 11/24/18 Unknown Rx Docusate Sodium [Colace CAP] 100 mg PO BID #30 capsule 11/24/18 Unknown Rx ED Physical Exam - General Limitations: No Limitations General appearance: alert, in no apparent distress - Head Head exam: Present: atraumatic, normocephalic - Eye Eye exam: Present: normal appearance. Absent: scleral icterus - ENT ENT exam: Present: mucous membranes moist - Neck Neck exam: Present: normal inspection. Absent: meningismus - Respiratory Respiratory exam: Present: normal lung sounds bilaterally. Absent: respiratory distress - Cardiovascular Cardiovascular Exam: Present: regular rate, normal rhythm. Absent: systolic murmur, diastolic murmur, rubs, gallop - GI/Abdominal GI/Abdominal exam: Present: soft, normal bowel sounds. Absent: distended, tenderness, guarding, rebound, rigid - Rectal Rectal exam: Present: deferred - Extremities Exam Extremities exam: Present: normal inspection - Back Exam Back exam: Present: normal inspection - Neurological Exam Neurological exam: Present: alert, oriented X3, CN II-XII intact. Absent: motor sensory deficit - Psychiatric Psychiatric exam: Present: normal affect, normal mood - Skin Skin exam: Present: warm, dry, intact, normal color. Absent: rash ED Course Vital Signs 05/24/19 08:17 Temperature 98.4 F Pulse Rate 72 Blood Pressure 110/64 - Reevaluation(s) Reevaluation #1: Patient's renal function has worsened compared to creatinine of 2.8 and 2018. I don't think his troponin is necessarily significant. I don't think the lactic acid level is significant either. The patient will be is admitted to the hospital service for further care, consultation and evaluation. 05/24/19 10:57 Reevaluation #2: Patient remains asymptomatic. 05/24/19 10:59 MEL score - Mel Score Age > 65: (0) No Aspirin use within the Past 7 Days: (0) No 3 or more CAD Risk Factors: (1) Yes 2 or more Angina events in past 24 hrs: (0) No Known CAD with more than 50% Stenosis: (0) No Elevated Cardiac Markers: (1) Yes ST Deviation Greater than 0.5mm: (1) Yes MEL Score: 3 ED Medical Decision Making - Lab Data Result diagrams: 05/24/19 09:34 05/24/19 09:34 Laboratory Results - last 24 hr 05/24/19 09:34 WBC 9.6 RBC 4.26 Hgb 11.8 Hct 34.9 L MCV 82 L MCH 28 MCHC 34 RDW 17.4 H Plt Count 236 Lymph % (Auto) 7.8 L [place] % (Auto) 11.0 H Eos % (Auto) 2.7 Baso % (Auto) 0.9 Lymph # 0.8 L [place] # 1.1 H Eos # 0.3 Baso # 0.1 Seg Neutrophils % 77.6 H Seg Neutrophils # 7.5 Laboratory Results - last 24 hr 05/24/19 05/24/19 05/24/19 09:34 09:34 09:34 WBC 9.6 RBC 4.26 Hgb 11.8 Hct 34.9 L MCV 82 L MCH 28 MCHC 34 RDW 17.4 H Plt Count 236 Lymph % (Auto) 7.8 L [place] % (Auto) 11.0 H Eos % (Auto) 2.7 Baso % (Auto) 0.9 Lymph # 0.8 L [place] # 1.1 H Eos # 0.3 Baso # 0.1 Seg Neutrophils % 77.6 H Seg Neutrophils # 7.5 PT 12.5 INR 0.96 APTT 28.0 Sodium 139 Potassium 4.5 Chloride 101.7 Carbon Dioxide 20 L Anion Gap 22 BUN 51 H Creatinine 3.7 H Estimated GFR 22 BUN/Creatinine Ratio 14 Glucose 171 H Lactic Acid Calcium 8.6 Magnesium Total Bilirubin Direct Bilirubin AST ALT Alkaline Phosphatase Troponin T 0.190 H* NT-Pro-B Natriuret Pep Total Protein Albumin Albumin/Globulin Ratio 05/24/19 05/24/19 09:34 09:34 WBC RBC Hgb Hct MCV MCH MCHC RDW Plt Count Lymph % (Auto) [place] % (Auto) Eos % (Auto) Baso % (Auto) Lymph # [place] # Eos # Baso # Seg Neutrophils % Seg Neutrophils # PT INR APTT Sodium Potassium Chloride Carbon Dioxide Anion Gap BUN Creatinine Estimated GFR BUN/Creatinine Ratio Glucose Lactic Acid 2.20 H* Calcium Magnesium 2.40 H Total Bilirubin 0.30 Direct Bilirubin < 0.2 AST 12 ALT 12 Alkaline Phosphatase 75 Troponin T NT-Pro-B Natriuret Pep 5721 H Total Protein 7.1 Albumin 4.0 Albumin/Globulin Ratio 1.3 - EKG Data -: EKG Interpreted by Me EKG shows normal: sinus rhythm Rate: normal - EKG Data Interpretation: other QS 3 consider old inferior zone, LVH with associated repolarization abnormalities consider ischemia, left atrial enlargement 05/24/19 10:11 - Radiology Data Radiology results: image reviewed (cardiomegaly with cephalization of flow) Critical care attestation.: If time is entered above; I have spent that time in minutes in the direct care of this critically ill patient, excluding procedure time. ED Disposition Clinical Impression: Chest pain Qualifiers: Chest pain type: unspecified Qualified Code(s): R07.9 - Chest pain, unspecified Cardiomyopathy Qualifiers: Cardiomyopathy type: unspecified Qualified Code(s): I42.9 - Cardiomyopathy, unspecified Acute on chronic renal failure Qualifiers: Acute renal failure type: unspecified Chronic kidney disease stage: stage 4 (severe) Qualified Code(s): N17.9 - Acute kidney failure, unspecified; N18.4 - Chronic kidney disease, stage 4 (severe) Disposition: DC-09 OP ADMIT IP TO THIS HOSP Is pt being admited?: Yes Does the pt Need Aspirin: Yes Condition: Stable Instructions: Chest Pain (ED) Referrals: SOULEYMANE ERAZO [Other] - 3-5 Days Time of Disposition: 10:59
[2019-05-24 10:12] LABS: Basophils # (Auto) 0.1 K/mm3 (0.0-0.1); Basophils % (Auto) 0.9 % (0.0-1.8); Eosinophils # (Auto) 0.3 K/mm3 (0.0-0.4); Eosinophils % (Auto) 2.7 % (0.0-4.3); Hematocrit 34.9 % (35.5-45.6); Hemoglobin 11.8 gm/dl (11.8-15.2); Lymphocytes # (Auto) 0.8 K/mm3 (1.2-5.4); Lymphocytes % (Auto) 7.8 % (13.4-35.0); Mean Corpuscular HGB Conc 34 % (32-34); Mean Corpuscular Volume 82 fl (84-94); Monocytes # (Auto) 1.1 K/mm3 (0.0-0.8); Platelet Count 236 K/mm3 (140-440); Red Blood Count 4.26 M/mm3 (3.65-5.03); Red Cell Distribution Width 17.4 % (13.2-15.2)
--- NOTE | 2019-05-24 10:12 | XRay Report ---
PROCEDURE: XR CHEST 1V AP TECHNIQUE: Chest radiograph, AP view. HISTORY: Chest Pain COMPARISONS: Chest x-ray January 04, 2018. FINDINGS: Mild stable cardiomegaly. There is no effusion. There is no pneumothorax. There is no consolidation. There are no suspicious osseous lesions. IMPRESSION: * No acute cardiopulmonary findings. This document is electronically signed by Steven Alan MD., May 24 2019 10:10:47 AM ET
[2019-05-24 10:26] LABS: INR 0.96 (0.87-1.13)
[2019-05-24 10:33] LABS: Calcium 8.6 mg/dL (8.4-10.2)
[2019-05-24 10:36] LABS: Alanine Aminotransferase 12 units/L (7-56)
[2019-05-24 10:40] LABS: Bilirubin,Direct < 0.2 mg/dL (0-0.2)
[2019-05-24 11:51] LABS: Chol/HDL Ratio 2.57 %
--- NOTE | 2019-05-24 20:06 | History and Physical Report ---
History of Present Illness Date of examination: 05/24/19 Date of admission: 05/24/19 12:16 Chief complaint: Chest pain since am History of present illness: 43-year-old man states he was preparing to go to [employer] this a.m. when he experienced chest pain. Chest pain lasted for 30 minutes.Some diaphoresis present.Radiation to l arm present.Pain was about 6/10.Resolved now.Apparently had cardiac cath 2 years ago but no stent.Says he has CHF but not on any diuretics.No palpitations. Past Medical History Previous Medical History?: Yes Hypertension: Yes CVA: Yes Diabetes: Yes Renal Disease: Yes (chronic renal insufficiency) Additional medical history: Coronary artery disease medically treated Surgical History Past Surgical History?: Yes Additional Surgical History: heart cath 09/2017 Social History Smoking Status: Current Every Day Smoker Substance Use Type: Alcohol, Prescribed Review of Systems ROS: Stated complaint: DIZZY/ARM WEAKNESS/CHEST PAIN Other details as noted in HPI Constitutional: denies: chills, fever Eyes: denies: eye pain, eye discharge, vision change ENT: denies: ear pain, throat pain Respiratory: denies: cough, shortness of breath, wheezing Cardiovascular: chest pain. denies: palpitations Endocrine: no symptoms reported Gastrointestinal: denies: abdominal pain, nausea, diarrhea Genitourinary: denies: urgency, dysuria Musculoskeletal: denies: back pain, joint swelling, arthralgia Skin: denies: rash, lesions Neurological: denies: headache, weakness, paresthesias Psychiatric: denies: anxiety, depression Hematological/Lymphatic: denies: easy bleeding, easy bruising Medications and Allergies Allergies Allergy/AdvReac Type Severity Reaction Status Date / Time No Known Allergies Allergy Verified 10/02/17 18:06 Home Medications Medication Instructions Recorded Confirmed Last Taken Type Aspirin [Aspirin BABY CHEW TAB] 81 mg PO QDAY #30 tab.chew 09/29/17 05/24/19 1 Day Ago Rx ~01/05/18 hydrALAZINE [Apresoline TAB] 100 mg PO Q8HR #90 tab 09/29/17 05/24/19 1 Day Ago Rx ~01/05/18 Pravastatin [Pravachol] 40 mg PO QHS 11/05/17 05/24/19 1 Day Ago History ~01/05/18 glipiZIDE [Glipizide] 5 mg PO BID 11/05/17 05/24/19 1 Day Ago History ~01/05/18 ISOSORBIDE MONOnitrate [Imdur ER] 60 mg PO QDAY #30 tablet 01/07/18 05/24/19 Unknown Rx Carvedilol 12.5 mg PO BID 05/24/19 05/24/19 Unknown History Furosemide 40 mg PO DAILY 05/24/19 05/24/19 Unknown History Gabapentin 100 mg PO TID 05/24/19 05/24/19 Unknown History Potassium Chloride 1 tab PO DAILY 05/24/19 05/24/19 Unknown History Spironolactone 50 mg PO DAILY 05/24/19 05/24/19 Unknown History cloNIDine [Catapres] 0.2 mg PO BID 05/24/19 05/24/19 Unknown History metFORMIN 1,000 mg PO BID 05/24/19 05/24/19 Unknown History Exam - Constitutional Vitals: Temp Pulse Resp BP Pulse Ox 98.1 F 72 17 175/106 97 05/24/19 19:05 05/24/19 19:05 05/24/19 19:05 05/24/19 19:05 05/24/19 19:05 General appearance: Present: no acute distress, well-nourished - EENT Eyes: Present: PERRL ENT: hearing intact, clear oral mucosa - Neck Neck: Present: supple, normal ROM - Respiratory Respiratory effort: normal Respiratory: bilateral: CTA - Cardiovascular Heart Sounds: Present: S1 & S2. Absent: rub, click - Extremities Extremities: pulses symmetrical, No edema Peripheral Pulses: within normal limits - Abdominal General gastrointestinal: Present: soft, non-tender, non-distended, normal bowel sounds Male genitourinary: Present: normal - Integumentary Integumentary: Present: clear, warm, dry - Musculoskeletal Musculoskeletal: gait normal, strength equal bilaterally - Psychiatric Psychiatric: appropriate mood/affect, intact judgment & insight - Neurologic Neurologic: CNII-XII intact, moves all extremities Results - Labs CBC & Chem 7: 05/24/19 09:34 05/24/19 09:34 Labs: Laboratory Last Values WBC 9.6 K/mm3 (4.5-11.0) 05/24/19 09:34 RBC 4.26 M/mm3 (3.65-5.03) 05/24/19 09:34 Hgb 11.8 gm/dl (11.8-15.2) 05/24/19 09:34 Hct 34.9 % (35.5-45.6) L 05/24/19 09:34 MCV 82 fl (84-94) L 05/24/19 09:34 MCH 28 pg (28-32) 05/24/19 09:34 MCHC 34 % (32-34) 05/24/19 09:34 RDW 17.4 % (13.2-15.2) H 05/24/19 09:34 Plt Count 236 K/mm3 (140-440) 05/24/19 09:34 Lymph % (Auto) 7.8 % (13.4-35.0) L 05/24/19 09:34 [place] % (Auto) 11.0 % (0.0-7.3) H 05/24/19 09:34 Eos % (Auto) 2.7 % (0.0-4.3) 05/24/19 09:34 Baso % (Auto) 0.9 % (0.0-1.8) 05/24/19 09:34 Lymph # 0.8 K/mm3 (1.2-5.4) L 05/24/19 09:34 [place] # 1.1 K/mm3 (0.0-0.8) H 05/24/19 09:34 Eos # 0.3 K/mm3 (0.0-0.4) 05/24/19 09:34 Baso # 0.1 K/mm3 (0.0-0.1) 05/24/19 09:34 Seg Neutrophils % 77.6 % (40.0-70.0) H 05/24/19 09:34 Seg Neutrophils # 7.5 K/mm3 (1.8-7.7) 05/24/19 09:34 PT 12.5 Sec. (12.2-14.9) 05/24/19 09:34 INR 0.96 (0.87-1.13) 05/24/19 09:34 APTT 28.0 Sec. (24.2-36.6) 05/24/19 09:34 Sodium 139 mmol/L (137-145) 05/24/19 09:34 Potassium 4.5 mmol/L (3.6-5.0) 05/24/19 09:34 Chloride 101.7 mmol/L (98-107) 05/24/19 09:34 Carbon Dioxide 20 mmol/L (22-30) L 05/24/19 09:34 22 mmol/L 05/24/19 09:34 BUN 51 mg/dL (9-20) H 05/24/19 09:34 3.7 mg/dL (0.8-1.5) H 05/24/19 09:34 Estimated GFR 22 ml/min 05/24/19 09:34 14 % 05/24/19 09:34 Glucose 171 mg/dL (75-100) H 05/24/19 09:34 POC Glucose 169 (70-105) H 05/24/19 16:21 Lactic Acid 1.30 mmol/L (0.7-2.0) 05/24/19 11:37 Calcium 8.6 mg/dL (8.4-10.2) 05/24/19 09:34 Magnesium 2.40 mg/dL (1.7-2.3) H 05/24/19 09:34 0.30 mg/dL (0.1-1.2) 05/24/19 09:34 < 0.2 mg/dL (0-0.2) 05/24/19 09:34 AST 12 units/L (5-40) 05/24/19 09:34 ALT 12 units/L (7-56) 05/24/19 09:34 75 units/L (35-129) 05/24/19 09:34 0.183 ng/mL (0.00-0.029) H* 05/24/19 16:47 NT-Pro-B Natriuret Pep 5721 pg/mL (0-450) H 05/24/19 09:34 7.1 g/dL (6.3-8.2) 05/24/19 09:34 4.0 g/dL (3.9-5) 05/24/19 09:34 1.3 % 05/24/19 09:34 Triglycerides 76 mg/dL (2-149) 05/24/19 09:34 Cholesterol 103 mg/dL (50-199) 05/24/19 09:34 58 mg/dL (50-130) 05/24/19 09:34 40 mg/dL (40-59) 05/24/19 09:34 2.57 % 05/24/19 09:34 Short CBC 05/24/19 Range/Units 09:34 WBC 9.6 (4.5-11.0) K/mm3 Hgb 11.8 (11.8-15.2) gm/dl Hct 34.9 L (35.5-45.6) % Plt Count 236 (140-440) K/mm3 BMP 05/24/19 09:34 Sodium 139 Potassium 4.5 Chloride 101.7 Carbon Dioxide 20 L BUN 51 H Creatinine 3.7 H Glucose 171 H Calcium 8.6 Cardiac Enzymes 05/24/19 05/24/19 05/24/19 Range/Units 09:34 11:37 16:47 Troponin T 0.190 H* 0.178 H* 0.183 H* (0.00-0.029) ng/mL Liver Function 05/24/19 Range/Units 09:34 Total Bilirubin 0.30 (0.1-1.2) mg/dL Direct Bilirubin < 0.2 (0-0.2) mg/dL AST 12 (5-40) units/L ALT 12 (7-56) units/L Alkaline Phosphatase 75 (35-129) units/L Albumin 4.0 (3.9-5) g/dL - Imaging and Cardiology EKG: report reviewed (NSR 72/minLVH And ST elevation probably due to LVH) Assessment and Plan Advance Directives: Yes (Full code) VTE prophylaxis?: Chemical Plan of care discussed with patient/family: Yes - Patient Problems (1) NSTEMI (non-ST elevated myocardial infarction) Current Visit: Yes Status: Acute Plan to address problem: Elevated troponin levels CKD contributory?? IV Heparin started Lexiscan cancelled Defer to Cardiolgy reg Stress versus C (2) HTN (hypertension) Current Visit: Yes Status: Chronic Qualifiers: Hypertension type: essential hypertension Qualified Code(s): I10 - Essential (primary) hypertension Plan to address problem: Cont antihypertensives (3) CAD (coronary artery disease) Current Visit: Yes Status: Chronic Qualifiers: Coronary Disease-Associated Artery/Lesion type: [place] artery [place] vs. tr ansplanted heart: [place] heart Plan to address problem: COnt ISMO and ASA (4) CKD (chronic kidney disease) Current Visit: Yes Status: Chronic Qualifiers: Chronic kidney disease stage: stage 4 (severe) Qualified Code(s): N18.4 - Chronic kidney disease, stage 4 (severe) Plan to address problem: Nephrology consult--Dr Wiggins (5) T2DM (type 2 diabetes mellitus) Current Visit: Yes Status: Chronic Qualifiers: Diabetes mellitus terminal manager insulin use: without correction use Plan to address problem: Cont Metformin and Coverage (6) CHF (congestive heart failure) Current Visit: Yes Status: Chronic Qualifiers: Heart failure type: combined systolic and diastolic Plan to address problem: COnt Furosmide (7) DVT prophylaxis Current Visit: No Status: Acute Plan to address problem: On Heparin drip and GI prophylaxis
[2019-05-24] MEDS ORDERED: ALDACTONE PO SCH (20:15)
[2019-05-24] MEDS ORDERED: NON-FORMULARY (Spironolactone 50 MG) PO SCH (20:15)
[2019-05-24] MEDS ORDERED: POTASSIUM CHLORIDE PO SCH (20:15)
[2019-05-24] MEDS ORDERED: NON-FORMULARY (Furosemide 40 MG) PO SCH (20:15)
[2019-05-24] MEDS ORDERED: LASIX ONE (20:52)
[2019-05-24] MEDS: LASIX PO SCH (20:53)
[2019-05-24] MEDS: K-DUR PO SCH (21:12)
[2019-05-24] MEDS: IMDUR PO SCH (21:18)
[2019-05-24] MEDS: APRESOLINE PO SCH (21:34)
[2019-05-24] MEDS: CATAPRES PO SCH (21:52)
[2019-05-24] MEDS: COREG PO SCH (21:53)
[2019-05-24] MEDS ORDERED: CATAPRES ONE (21:56)
[2019-05-24] MEDS ORDERED: COREG ONE (21:56)
[2019-05-24] MEDS ORDERED: NON-FORMULARY (Carvedilol 12.5 MG) PO SCH (22:00)
[2019-05-24] MEDS ORDERED: NON-FORMULARY (Metformin 1,000 MG) PO SCH (22:00)
[2019-05-24] MEDS: HumaLOG SUB-Q SCH (23:24)
[2019-05-24] MEDS: GLUCOTROL PO SCH (23:29)
[2019-05-24] MEDS: PRAVACHOL PO SCH (23:30)
[2019-05-25] MEDS: APRESOLINE PO SCH ×3 (05:47→21:32)
[2019-05-25] MEDS ORDERED: LEXISCAN IV ONE (07:35)
[2019-05-25 07:44] LABS: Hematocrit 38.2 % (35.5-45.6); Hemoglobin 12.9 gm/dl (11.8-15.2)
[2019-05-25 07:53] LABS: INR 0.93 (0.87-1.13)
[2019-05-25 07:54] LABS: Partial Thromboplastin Time 29.3 Sec. (24.2-36.6)
[2019-05-25] MEDS ORDERED: NON-FORMULARY (Gabapentin 100 MG) PO SCH (08:00)
[2019-05-25] MEDS: HumaLOG SUB-Q SCH ×4 (08:12→21:33)
[2019-05-25] MEDS: HEPARIN/ 0.45% NACL-25,000 UNIT/500 ML 25,000 UNIT/500 ML BAG IV SCH ×2 (08:42→15:57)
[2019-05-25] MEDS: GLUCOTROL PO SCH ×2 (09:54→17:32)
[2019-05-25] MEDS: IMDUR PO SCH (09:54)
[2019-05-25] MEDS: BABY ASPIRIN PO SCH (09:55)
[2019-05-25] MEDS: CATAPRES PO SCH ×2 (09:55→21:32)
[2019-05-25] MEDS: K-DUR PO SCH (09:55)
[2019-05-25] MEDS: COREG PO SCH ×2 (09:55→21:32)
[2019-05-25] MEDS: NEURONTIN PO SCH ×3 (09:57→21:32)
[2019-05-25] MEDS: LASIX PO SCH (10:25)
[2019-05-25] MEDS ORDERED: LASIX IV ONE (11:00)
--- NOTE | 2019-05-25 11:37 | Consultation ---
History of Present Illness Consult date: 05/25/19 Consult reason: chest pain History of present illness: This is a 43-year old man with a history of kidney disease, hypertension, diabetes and coronary artery disease. 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 Otherwise, mild nonobstructive atherosclerosis of the left coronary system. An echocardiogram 10/02/17 showed left ventricular systolic function well preserved with ejection fraction 50-55%. Patient has been noncompliant with outpatient cardiac follow-ups. Patient presented with chest pain, admitted for further evaluation. Cardiac consultation has been requested. Patient reports intermittent chest pain is mid- sternal associated with dizziness. Patient denies shortness of breath, denies palpitations and had no syncope. Initial labs shows a creatinine of 3.7, a decline when compared to 2.8 six months ago. Troponin of 0.178, 0.208. His EKG is sinus rhythm with LVH. Medications and Allergies Allergies Allergy/AdvReac Type Severity Reaction Status Date / Time No Known Allergies Allergy Verified 10/02/17 18:06 Home Medications Medication Instructions Recorded Confirmed Last Taken Type Aspirin [Aspirin BABY CHEW TAB] 81 mg PO QDAY #30 tab.chew 09/29/17 05/24/19 1 Day Ago Rx ~01/05/18 hydrALAZINE [Apresoline TAB] 100 mg PO Q8HR #90 tab 09/29/17 05/24/19 1 Day Ago Rx ~01/05/18 Pravastatin [Pravachol] 40 mg PO QHS 11/05/17 05/24/19 1 Day Ago History ~01/05/18 glipiZIDE [Glipizide] 5 mg PO BID 11/05/17 05/24/19 1 Day Ago History ~01/05/18 ISOSORBIDE MONOnitrate [Imdur ER] 60 mg PO QDAY #30 tablet 01/07/18 05/24/19 Unknown Rx Carvedilol 12.5 mg PO BID 05/24/19 05/24/19 Unknown History Furosemide 40 mg PO DAILY 05/24/19 05/24/19 Unknown History Gabapentin 100 mg PO TID 05/24/19 05/24/19 Unknown History Potassium Chloride 1 tab PO DAILY 05/24/19 05/24/19 Unknown History Spironolactone 50 mg PO DAILY 05/24/19 05/24/19 Unknown History cloNIDine [Catapres] 0.2 mg PO BID 05/24/19 05/24/19 Unknown History metFORMIN 1,000 mg PO BID 05/24/19 05/24/19 Unknown History Active Meds: Active Medications Aspirin (Baby Aspirin) 81 mg PO QDAY [facility] Last Admin: 05/25/19 09:55 Dose: 81 mg Documented by: Carvedilol (Coreg) 12.5 mg PO BID [facility] Last Admin: 05/25/19 09:55 Dose: 12.5 mg Documented by: Clonidine HCl (Catapres) 0.2 mg PO BID [facility] Last Admin: 05/25/19 09:55 Dose: 0.2 mg Documented by: Gabapentin (Neurontin) 100 mg PO TID [facility] Last Admin: 05/25/19 09:57 Dose: 100 mg Documented by: Glipizide (Glucotrol) 5 mg PO BIDDIAB [facility], [facility] Last Admin: 05/25/19 09:54 Dose: Not Given Documented by: Hydralazine HCl (Apresoline) 100 mg PO Q8HR [facility] Last Admin: 05/25/19 05:47 Dose: 100 mg Documented by: Heparin Sodium/Sodium Chloride (Heparin/ 0.45% Nacl-25,000 Unit/500 Ml) 25,000 unit in 500 mls @ 20 mls/hr IV TITRATE [facility], [facility]; Protocol Last Admin: 05/25/19 08:42 Dose: 1,000 units/hr, 20 mls/hr Documented by: Insulin Human Lispro (Humalog) 0 unit SUB-Q ACHS [facility], [facility]; Protocol Last Admin: 05/25/19 08:12 Dose: Not Given Documented by: Isosorbide Mononitrate (Imdur) 60 mg PO QDAY [facility] Last Admin: 05/25/19 09:54 Dose: 60 mg Documented by: Potassium Chloride (K-Dur) 10 meq PO DAILY [facility] Last Admin: 05/25/19 09:55 Dose: 10 meq Documented by: Pravastatin Sodium (Pravachol) 40 mg PO QHS [facility] Last Admin: 05/24/19 23:30 Dose: 40 mg Documented by: Physical Examination Vital Signs Temp Pulse BP 98.4 F 72 110/64 05/24/19 08:17 05/24/19 08:17 05/24/19 08:17 General appearance: no acute distress HEENT: Positive: PERRL Neck: Positive: trachea midline Cardiac: Positive: Reg Rate and Rhythm Lungs: Positive: Decreased Breath Sounds Neuro: Positive: Grossly Intact Extremities: Absent: edema Results 05/25/19 07:02 05/24/19 09:34 Coagulation 05/25/19 Range/Units 07:02 PT 12.2 (12.2-14.9) Sec. INR 0.93 (0.87-1.13) APTT 29.3 (24.2-36.6) Sec. Lipids 05/24/19 Range/Units 09:34 Triglycerides 76 (2-149) mg/dL Cholesterol 103 (50-199) mg/dL HDL Cholesterol 40 (40-59) mg/dL Cholesterol/HDL Ratio 2.57 % CBC 05/25/19 Range/Units 07:02 Hgb 12.9 (11.8-15.2) gm/dl Hct 38.2 (35.5-45.6) % Plt Count 259 (140-440) K/mm3 Assessment and Plan Angina secondary to small vessel disease Coronary artery disease Recent Right/LHC findings: elevated left and right sided filling pressures chronic total occlusion of the mid right coronary artery, with the distal vessel perfused by right to right and [id number] collaterals. otherwise, mild nonobstructive atherosclerosis of the left coronary system. Medical therapy recommended echocardiogram 10/02/17 shows left ventricular systolic function well preserved with ejection fraction 50-55% Non-specific troponin abnormality in the setting of renal failure Diabetes mellitus Hypertension Chronic Renal failure
--- NOTE | 2019-05-25 14:45 | Consultation ---
History of Present Illness - History of Present Illness 43-year-old gentleman with medical history significant for diabetes mellitus type 2, hypertension, valvular heart disease with mitral regurgitation admitted with complaints of chest pain. Patient noted chest pain in the hours prior to admission denies any nausea vomiting or diarrhea denies any decreased urine output has a history of chronic kidney disease follows up with Dr. 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 Denies significant exertional dyspnea Past History Past Medical History: diabetes, hypertension Medications and Allergies Allergies Allergy/AdvReac Type Severity Reaction Status Date / Time No Known Allergies Allergy Verified 10/02/17 18:06 Home Medications Medication Instructions Recorded Confirmed Last Taken Type Aspirin [Aspirin BABY CHEW TAB] 81 mg PO QDAY #30 tab.chew 09/29/17 05/24/19 1 Day Ago Rx ~01/05/18 hydrALAZINE [Apresoline TAB] 100 mg PO Q8HR #90 tab 09/29/17 05/24/19 1 Day Ago Rx ~01/05/18 Pravastatin [Pravachol] 40 mg PO QHS 11/05/17 05/24/19 1 Day Ago History ~01/05/18 glipiZIDE [Glipizide] 5 mg PO BID 11/05/17 05/24/19 1 Day Ago History ~01/05/18 ISOSORBIDE MONOnitrate [Imdur ER] 60 mg PO QDAY #30 tablet 01/07/18 05/24/19 Unknown Rx Carvedilol 12.5 mg PO BID 05/24/19 05/24/19 Unknown History Furosemide 40 mg PO DAILY 05/24/19 05/24/19 Unknown History Gabapentin 100 mg PO TID 05/24/19 05/24/19 Unknown History Potassium Chloride 1 tab PO DAILY 05/24/19 05/24/19 Unknown History Spironolactone 50 mg PO DAILY 05/24/19 05/24/19 Unknown History cloNIDine [Catapres] 0.2 mg PO BID 05/24/19 05/24/19 Unknown History metFORMIN 1,000 mg PO BID 06/23/19 06/23/19 Unknown History Active Meds: Active Medications Aspirin (Baby Aspirin) 81 mg PO QDAY [facility] Last Admin: 05/25/19 09:55 Dose: 81 mg Documented by: Carvedilol (Coreg) 12.5 mg PO BID [facility] Last Admin: 05/25/19 09:55 Dose: 12.5 mg Documented by: Clonidine HCl (Catapres) 0.2 mg PO BID [facility] Last Admin: 05/25/19 09:55 Dose: 0.2 mg Documented by: Gabapentin (Neurontin) 100 mg PO TID [facility] Last Admin: 05/25/19 09:57 Dose: 100 mg Documented by: Glipizide (Glucotrol) 5 mg PO BIDDIAB [facility] Last Admin: 05/25/19 09:54 Dose: Not Given Documented by: Hydralazine HCl (Apresoline) 100 mg PO Q8HR [facility] Last Admin: 05/25/19 05:47 Dose: 100 mg Documented by: Heparin Sodium/Sodium Chloride (Heparin/ 0.45% Nacl-25,000 Unit/500 Ml) 25,000 unit in 500 mls @ 20 mls/hr IV TITRATE [facility]; Protocol Last Admin: 05/25/19 08:42 Dose: 1,000 units/hr, 20 mls/hr Documented by: Insulin Human Lispro (Humalog) 0 unit SUB-Q ACHS [facility]; Protocol Last Admin: 05/25/19 12:38 Dose: Not Given Documented by: Isosorbide Mononitrate (Imdur) 60 mg PO QDAY [facility] Last Admin: 05/25/19 09:54 Dose: 60 mg Documented by: Potassium Chloride (K-Dur) 10 meq PO DAILY [facility] Last Admin: 05/25/19 09:55 Dose: 10 meq Documented by: Pravastatin Sodium (Pravachol) 40 mg PO QHS [facility] Last Admin: 05/24/19 23:30 Dose: 40 mg Documented by: Review of Systems Constitutional: weight loss, no weight gain Cardiovascular: chest pain, no orthopnea Respiratory: no cough, no cough with sputum Gastrointestinal: no abdominal pain, no nausea Genitourinary Male: no dysuria, no hematuria Psychiatric: no anxiety, no memory loss Endocrine: no cold intolerance, no heat intolerance Hematologic/Lymphatic: no easy bruising Allergic/Immunologic: no urticaria Exam - Vital Signs Vital signs: Vital Signs Temp Pulse BP 98.4 F 72 110/64 05/24/19 08:17 05/24/19 08:17 05/24/19 08:17 - General Appearance General appearance: well-developed, well-nourished EENT: ATNC, PERRL, mucous membranes moist Neck: Present: neck supple, trachea midline Respiratory: Clear to Ascultation Heart: regular, S1S2 Gastrointestinal: Present: normal, normoactive bowel sounds Integumentary: no rash Neurologic: alert and oriented x3, CN 3-12 intact Psychiatric: mood/affect appropriate Results - Lab Results 05/25/19 07:02 05/24/19 09:34 Most recent lab results Calcium 8.6 mg/dL (8.4-10.2) 05/24/19 09:34 Magnesium 2.40 mg/dL (1.7-2.3) H 05/24/19 09:34 - Image Kidney/bladder ultrasound: image reviewed, other (I reviewed chest x-ray. Patient does not appear adequate haziness there is cephalization) Assessment and Plan - Patient Problems (1) Acute on chronic renal failure Current Visit: Yes Status: Acute Qualifiers: Acute renal failure type: unspecified Chronic kidney disease stage: stage 4 (severe) Qualified Code(s): N17.9 - Acute kidney failure, unspecified; N18.4 - Chronic kidney disease, stage 4 (severe) Plan to address problem: Acute on chronic renal failure baseline GFR is to be mid 20s to 30s Current creatinine is at 3.7 Review echocardiogram and chest x-ray We'll give Lasix IV We'll stop metformin and spironolactone Strict input and outputs Avoid nephrotoxic medication (2) NSTEMI (non-ST elevated myocardial infarction) Current Visit: Yes Status: Acute Plan to address problem: NSTEMI Elevated troponin cardiology following currently on heparin infusion Management by cardiology (3) CHF (congestive heart failure) Current Visit: Yes Status: Chronic Qualifiers: Heart failure type: combined systolic and diastolic Plan to address problem: Congestive heart failure (4) HTN (hypertension) Current Visit: Yes Status: Chronic Qualifiers: Hypertension type: essential hypertension Qualified Code(s): I10 - Essential (primary) hypertension Plan to address problem: Hypertension continue medications Hold Spironolactone given acute kidney injury
--- NOTE | 2019-05-25 18:00 | Progress Note ---
Assessment and Plan - Patient Problems (1) Acute on chronic renal failure Current Visit: Yes Status: Acute Qualifiers: Acute renal failure type: unspecified Chronic kidney disease stage: stage 4 (severe) Qualified Code(s): N17.9 - Acute kidney failure, unspecified; N18.4 - Chronic kidney disease, stage 4 (severe) Plan to address problem: HM with acute on chronic kidney disease what appears to be worsening renal function with a creatinine of 3.7. We'll obtain renal consult. Avoid nephrotoxic agents low-sodium diet. Could be etiology of elevated cardiac isoen zymes as well. Bilateral renal ultrasound await any further recommendations from nephrology (2) Chest pain Current Visit: Yes Status: Acute Qualifiers: Chest pain type: unspecified Qualified Code(s): R07.9 - Chest pain, unspecified Plan to address problem: Coronary artery disease patient with chest pain optimizing medical management with nitroglycerin addition of Ranexa, beta [place]. Patient also have aggressive high-dose statin well as antiplatelet therapy and consider cessation. Patient has been educated on the above and has a reasonable understanding of treatment plan. (3) NSTEMI (non-ST elevated myocardial infarction) Current Visit: Yes Status: Acute (4) CAD (coronary artery disease) Current Visit: Yes Status: Chronic Qualifiers: Coronary Disease-Associated Artery/Lesion type: [place] artery [place] vs. transplanted heart: [place] heart Plan to address problem: C chest pain. Treatment plan for medical management. (5) Accelerated hypertension Current Visit: No Status: Resolved History Interval history: Patient is 3-year-old history of coronary artery disease occlusion of mid right coronary treated with medical therapy preserved LVH presented with atypical chest pain. Patient had elevated but unchanged elevation of troponin. Was like this on similar admission. Patient renal function was also found to get worse with a creatinine of 3.7. At present patient denies any chest pain. Just generalized malaise. Hospitalist Physical - Constitutional Vitals: Temp Pulse Resp BP Pulse Ox 99.0 F 69 18 160/106 95 05/25/19 15:47 05/25/19 15:47 05/25/19 15:47 05/25/19 15:47 05/25/19 15:47 General appearance: Present: no acute distress - EENT Eyes: Present: PERRL, EOM intact ENT: hearing intact, clear oral mucosa, dentition normal - Neck Neck: Present: supple, normal ROM - Respiratory Respiratory effort: normal Respiratory: bilateral: CTA - Cardiovascular Rhythm: regular Heart Sounds: Present: S1 & S2 - Extremities Extremities: no ischemia, pulses intact, pulses symmetrical Peripheral Pulses: within normal limits - Abdominal General gastrointestinal: soft, non-tender, non-distended - Integumentary Integumentary: Present: clear, warm, dry - Psychiatric Psychiatric: appropriate mood/affect, intact judgment & insight - Neurologic Neurologic: CNII-XII intact, focal deficits, moves all extremities Results - Labs CBC & Chem 7: 05/25/19 07:02 05/24/19 09:34 Labs: Laboratory Last Values WBC 9.6 K/mm3 (4.5-11.0) 05/24/19 09:34 RBC 4.26 M/mm3 (3.65-5.03) 05/24/19 09:34 Hgb 12.9 gm/dl (11.8-15.2) 05/25/19 07:02 Hct 38.2 % (35.5-45.6) 05/25/19 07:02 MCV 82 fl (84-94) L 05/24/19 09:34 MCH 28 pg (28-32) 05/24/19 09:34 MCHC 34 % (32-34) 05/24/19 09:34 RDW 17.4 % (13.2-15.2) H 05/24/19 09:34 Plt Count 259 K/mm3 (140-440) 05/25/19 07:02 Lymph % (Auto) 7.8 % (13.4-35.0) L 05/24/19 09:34 Bonner % (Auto) 11.0 % (0.0-7.3) H 05/24/19 09:34 Eos % (Auto) 2.7 % (0.0-4.3) 05/24/19 09:34 Baso % (Auto) 0.9 % (0.0-1.8) 05/24/19 09:34 Lymph # 0.8 K/mm3 (1.2-5.4) L 05/24/19 09:34 Bonner # 1.1 K/mm3 (0.0-0.8) H 05/24/19 09:34 Eos # 0.3 K/mm3 (0.0-0.4) 05/24/19 09:34 Baso # 0.1 K/mm3 (0.0-0.1) 05/24/19 09:34 Seg Neutrophils % 77.6 % (40.0-70.0) H 05/24/19 09:34 Seg Neutrophils # 7.5 K/mm3 (1.8-7.7) 05/24/19 09:34 PT 12.2 Sec. (12.2-14.9) 05/25/19 07:02 INR 0.93 (0.87-1.13) 05/25/19 07:02 APTT 29.3 Sec. (24.2-36.6) 05/25/19 07:02 Heparin Anti-Xa Level 0.18 U.I./ml (0.3-0.7) L 05/25/19 15:04 Sodium 139 mmol/L (137-145) 05/24/19 09:34 Potassium 4.5 mmol/L (3.6-5.0) 05/24/19 09:34 Chloride 101.7 mmol/L (98-107) 05/24/19 09:34 Carbon Dioxide 20 mmol/L (22-30) L 05/24/19 09:34 22 mmol/L 05/24/19 09:34 BUN 51 mg/dL (9-20) H 05/24/19 09:34 3.7 mg/dL (0.8-1.5) H 05/24/19 09:34 Estimated GFR 22 ml/min 05/24/19 09:34 14 % 05/24/19 09:34 Glucose 171 mg/dL (75-100) H 05/24/19 09:34 POC Glucose 101 (70-105) 05/25/19 15:53 Lactic Acid 1.30 mmol/L (0.7-2.0) 05/24/19 11:37 Calcium 8.6 mg/dL (8.4-10.2) 05/24/19 09:34 Magnesium 2.40 mg/dL (1.7-2.3) H 05/24/19 09:34 0.30 mg/dL (0.1-1.2) 05/24/19 09:34 < 0.2 mg/dL (0-0.2) 05/24/19 09:34 AST 12 units/L (5-40) 05/24/19 09:34 ALT 12 units/L (7-56) 05/24/19 09:34 75 units/L (35-129) 05/24/19 09:34 0.208 ng/mL (0.00-0.029) H* 05/25/19 04:30 NT-Pro-B Natriuret Pep 5721 pg/mL (0-450) H 05/24/19 09:34 7.1 g/dL (6.3-8.2) 05/24/19 09:34 4.0 g/dL (3.9-5) 05/24/19 09:34 1.3 % 05/24/19 09:34 Triglycerides 76 mg/dL (2-149) 05/24/19 09:34 Cholesterol 103 mg/dL (50-199) 05/24/19 09:34 58 mg/dL (50-130) 05/24/19 09:34 40 mg/dL (40-59) 05/24/19 09:34 2.57 % 05/24/19 09:34 Active Medications - Current Medications Current Medications: Generic Name Dose Route Start Last Admin Trade Name Freq PRN Reason Stop Dose Admin Aspirin 81 mg 05/25/19 10:00 05/25/19 09:55 Baby Aspirin PO 81 mg QDAY [facility] Administration Carvedilol 12.5 mg 05/24/19 22:00 05/25/19 09:55 Coreg PO 12.5 mg BID [facility] Administration Clonidine HCl 0.2 mg 05/24/19 22:00 05/25/19 09:55 Catapres PO 0.2 mg BID [facility] Administration Gabapentin 100 mg 05/25/19 08:00 05/25/19 15:48 Neurontin PO 100 mg TID [facility] Administration Glipizide 5 mg 05/24/19 22:00 05/25/19 17:32 Glucotrol PO 5 mg BIDDIAB [facility] Administration Hydralazine HCl 100 mg 05/24/19 22:00 05/25/19 15:49 Apresoline PO 100 mg Q8HR [facility] Administration Heparin Sodium/Sodium Chloride 25,000 unit in 500 mls @ 20 mls/hr 05/25/19 07:00 05/25/19 15:57 Heparin/ 0.45% Nacl-25,000 Unit/500 Ml IV 1,100 units/hr TITRATE [facility] 22 mls/hr Administration Protocol 1,000 UNITS/HR Insulin Human Lispro 0 unit 05/24/19 22:00 05/25/19 16:05 Humalog SUB-Q Not Given ACHS [facility] Protocol Isosorbide Mononitrate 60 mg 05/24/19 21:00 05/25/19 09:54 Imdur PO 60 mg QDAY [facility] Administration Potassium Chloride 10 meq 05/24/19 20:15 05/25/19 09:55 K-Dur PO 10 meq DAILY [facility] Administration Pravastatin Sodium 40 mg 05/24/19 22:00 05/24/19 23:30 Pravachol PO 40 mg QHS [facility] Administration
[2019-05-25] MEDS: PRAVACHOL PO SCH (21:32)
[2019-05-26] MEDS: HEPARIN/ 0.45% NACL-25,000 UNIT/500 ML 25,000 UNIT/500 ML BAG IV SCH ×2 (04:51→10:21)
[2019-05-26] MEDS: APRESOLINE PO SCH ×3 (05:14→21:40)
[2019-05-26 08:52] LABS: Calcium 9.3 mg/dL (8.4-10.2)
[2019-05-26] MEDS: RANEXA ER PO SCH ×2 (10:13→21:40)
[2019-05-26] MEDS: NEURONTIN PO SCH ×3 (10:13→21:40)
[2019-05-26] MEDS: COREG PO SCH ×2 (10:13→21:40)
[2019-05-26] MEDS: BABY ASPIRIN PO SCH (10:13)
[2019-05-26] MEDS: CATAPRES PO SCH ×2 (10:14→21:40)
[2019-05-26] MEDS: IMDUR PO SCH (10:14)
[2019-05-26] MEDS: K-DUR PO SCH (10:14)
[2019-05-26] MEDS: HumaLOG SUB-Q SCH ×4 (10:14→21:42)
[2019-05-26] MEDS: GLUCOTROL PO SCH ×2 (10:14→18:14)
--- NOTE | 2019-05-26 10:33 | Progress Note ---
Assessment and Plan Atypical chest pain Coronary artery disease 09/2017 Right/C findings: elevated left and right sided filling pressures chronic total occlusion of the mid right coronary artery, with the distal vessel perfused by right to right and [id number] collaterals. otherwise, mild nonobstructive atherosclerosis of the left coronary system. Medical therapy recommended Non-specific troponin abnormality in the setting of renal failure Diabetes mellitus Hypertension Chronic Renal disease Tobacco abuse Echocardiogram 10/2017 reports a well preserved left ventricular ejection fraction, 50-55%. Mild dilatation of the descending aorta 4.3, moderate to severe mitral regurgitation and moderate to severe pulmonary hypertension with pulmonary artery systolic pressure of 65. Recommendations: Medical therapy for his coronary artery disease as tolerated Smoking cessation Ultimately, he may benefit from noninvasive ischemic assessment on optimal medical therapy. Subjective Date of service: 05/26/19 Interval history: Patient is resting in bed and appears comfortable. He denies chest pain. Objective Vital Signs Temp Pulse Resp BP BP Pulse Ox 05/26/19 10:14 174/106 05/26/19 10:13 174/106 05/26/19 08:05 99.1 F 68 18 174/106 99 05/26/19 03:45 98.0 F 69 18 173/103 96 05/26/19 00:05 98.0 F 66 18 137/86 94 05/25/19 21:30 60 2 L 148/99 97 05/25/19 21:28 60 20 148/99 93 05/25/19 19:53 70 05/25/19 19:32 98.0 F 70 18 201/119 97 05/25/19 15:47 99.0 F 69 18 160/106 95 05/25/19 15:00 86 - Physical Examination General: No Apparent Distress HEENT: Positive: PERRL Neck: Positive: neck supple, trachea midline Cardiac: Positive: Reg Rate and Rhythm Lungs: Positive: Decreased Breath Sounds Neuro: Positive: Grossly Intact Extremities: Absent: edema - Labs and Meds Comprehensive Metabolic Panel 05/26/19 Range/Units 07:19 Sodium 138 (137-145) mmol/L Potassium 4.5 (3.6-5.0) mmol/L Chloride 98.4 (98-107) mmol/L Carbon Dioxide 22 (22-30) mmol/L BUN 52 H (9-20) mg/dL Creatinine 3.6 H (0.8-1.5) mg/dL Glucose 136 H (75-100) mg/dL Calcium 9.3 (8.4-10.2) mg/dL
--- NOTE | 2019-05-26 10:42 | Ultrasound Report ---
ULTRASOUND RENAL BILATERAL HISTORY: Acute kidney injury. TECHNIQUE: transabdominal ultrasound with color Doppler interrogation. COMPARISON: 09/25/17. FINDINGS: The right kidney measures 9.9 x 5.4 x 5.5cm. Right renal cortex: 1.7cm. The left kidney measures 11.2 x 4.7 x 5.7cm. Left renal cortex: 2.2cm. The kidneys are normal size, contour and position. There is increased renal cortical echotexture bilaterally consistent with nonspecific renal parenchymal disease. Corticomedullary differentiation is preserved. No evidence for cystic disease, mass, nephrolithiasis, hydronephrosis or perinephric fluid. The views of the bladder and the region of the ureters appear normal. IMPRESSION: Renal parenchymal disease. No significant change is demonstrated since 2017.
--- NOTE | 2019-05-26 11:46 | Progress Note ---
Assessment and Plan Assessment and plan: Acute on CKD. Nephrology following. Metformin and spironolactone have been discontinued. Continue IV Lasix per nephrology. Chest pain. Elevated troponin. Nonspecific elevation in the setting of renal failure. Coronary artery disease. Continue medical therapy per cardiology. Hypertension. Continue antihypertensive medications. History Interval history: This is a 43-year old man with a history of kidney disease, hypertension, diabetes and coronary artery disease. A cardiac catheterization done in 2017 reports a chronic total occlusion of the mid right coronary artery with the distal vessel perfused by right to right and [id number] collaterals. Otherwise, mild nonobstructive atherosclerosis of the left coronary system. An echocardiogram 10/02/17 showed left ventricular systolic function well preserved with ejection fraction 50-55%. Patient has been noncompliant with outpatient cardiac follow-ups. Patient presented with chest pain, admitted for further evaluation. Cardiac consultation has been requested. Patient reports intermittent chest pain is mid- sternal associated with dizziness. Initial labs shows a creatinine of 3.7, a decline when compared to 2.8 six months ago. Troponin of 0.178, 0.208. His EKG is sinus rhythm with LVH. Hospitalist Physical - Constitutional Vitals: Temp Pulse Resp BP Pulse Ox 99.1 F 68 18 174/106 99 05/26/19 08:05 05/26/19 08:05 05/26/19 08:05 05/26/19 10:14 05/26/19 08:05 General appearance: Present: no acute distress - EENT Eyes: Present: PERRL, EOM intact ENT: hearing intact, clear oral mucosa, dentition normal - Neck Neck: Present: supple, normal ROM - Respiratory Respiratory effort: normal Respiratory: bilateral: CTA - Cardiovascular Rhythm: regular Heart Sounds: Present: S1 & S2. Absent: gallop, rub - Extremities Extremities: no ischemia, No edema, Full ROM - Abdominal General gastrointestinal: soft, non-tender, non-distended, normal bowel sounds - Integumentary Integumentary: Present: clear, warm, dry - Neurologic Neurologic: CNII-XII intact, moves all extremities Results - Labs CBC & Chem 7: 05/25/19 07:02 05/26/19 07:19 Labs: Laboratory Last Values WBC 9.6 K/mm3 (4.5-11.0) 05/24/19 09:34 RBC 4.26 M/mm3 (3.65-5.03) 05/24/19 09:34 Hgb 12.9 gm/dl (11.8-15.2) 05/25/19 07:02 Hct 38.2 % (35.5-45.6) 05/25/19 07:02 MCV 82 fl (84-94) L 05/24/19 09:34 MCH 28 pg (28-32) 05/24/19 09:34 MCHC 34 % (32-34) 05/24/19 09:34 RDW 17.4 % (13.2-15.2) H 05/24/19 09:34 Plt Count 259 K/mm3 (140-440) 05/25/19 07:02 Lymph % (Auto) 7.8 % (13.4-35.0) L 05/24/19 09:34 [place] % (Auto) 11.0 % (0.0-7.3) H 05/24/19 09:34 Eos % (Auto) 2.7 % (0.0-4.3) 05/24/19 09:34 Baso % (Auto) 0.9 % (0.0-1.8) 05/24/19 09:34 Lymph # 0.8 K/mm3 (1.2-5.4) L 05/24/19 09:34 [place] # 1.1 K/mm3 (0.0-0.8) H 05/24/19 09:34 Eos # 0.3 K/mm3 (0.0-0.4) 05/24/19 09:34 Baso # 0.1 K/mm3 (0.0-0.1) 05/24/19 09:34 Seg Neutrophils % 77.6 % (40.0-70.0) H 05/24/19 09:34 Seg Neutrophils # 7.5 K/mm3 (1.8-7.7) 05/24/19 09:34 PT 12.2 Sec. (12.2-14.9) 05/25/19 07:02 INR 0.93 (0.87-1.13) 05/25/19 07:02 APTT 29.3 Sec. (24.2-36.6) 05/25/19 07:02 Heparin Anti-Xa Level 0.12 U.I./ml (0.3-0.7) L 05/26/19 07:18 Sodium 138 mmol/L (137-145) 05/26/19 07:19 Potassium 4.5 mmol/L (3.6-5.0) 05/26/19 07:19 Chloride 98.4 mmol/L (98-107) 05/26/19 07:19 Carbon Dioxide 22 mmol/L (22-30) 05/26/19 07:19 22 mmol/L 05/26/19 07:19 BUN 52 mg/dL (9-20) H 05/26/19 07:19 3.6 mg/dL (0.8-1.5) H 05/26/19 07:19 Estimated GFR 22 ml/min 05/26/19 07:19 14 % 05/26/19 07:19 Glucose 136 mg/dL (75-100) H 05/26/19 07:19 POC Glucose 141 (70-105) H 05/26/19 08:12 Lactic Acid 1.30 mmol/L (0.7-2.0) 05/24/19 11:37 Calcium 9.3 mg/dL (8.4-10.2) 05/26/19 07:19 Magnesium 2.40 mg/dL (1.7-2.3) H 05/24/19 09:34 0.30 mg/dL (0.1-1.2) 05/24/19 09:34 < 0.2 mg/dL (0-0.2) 05/24/19 09:34 AST 12 units/L (5-40) 05/24/19 09:34 ALT 12 units/L (7-56) 05/24/19 09:34 75 units/L (35-129) 05/24/19 09:34 0.208 ng/mL (0.00-0.029) H* 05/25/19 04:30 NT-Pro-B Natriuret Pep 5721 pg/mL (0-450) H 05/24/19 09:34 7.1 g/dL (6.3-8.2) 05/24/19 09:34 4.0 g/dL (3.9-5) 05/24/19 09:34 1.3 % 05/24/19 09:34 Triglycerides 76 mg/dL (2-149) 05/24/19 09:34 Cholesterol 103 mg/dL (50-199) 05/24/19 09:34 58 mg/dL (50-130) 05/24/19 09:34 40 mg/dL (40-59) 05/24/19 09:34 2.57 % 05/24/19 09:34 Active Medications - Current Medications Current Medications: Generic Name Dose Route Start Last Admin Trade Name Georgette PRN Reason Stop Dose Admin Aspirin 81 mg 05/25/19 10:00 05/26/19 10:13 Baby Aspirin PO 81 mg QDAY LORAINE Administration Carvedilol 12.5 mg 05/24/19 22:00 05/26/19 10:13 Coreg PO 12.5 mg BID LORAINE Administration Clonidine HCl 0.2 mg 05/24/19 22:00 05/26/19 10:14 Catapres PO 0.2 mg BID LORAINE Administration Gabapentin 100 mg 05/25/19 08:00 05/26/19 10:13 Neurontin PO 100 mg TID LORAINE Administration Glipizide 5 mg 05/24/19 22:00 05/26/19 10:14 Glucotrol PO 5 mg BIDDIAB LORAINE Administration Hydralazine HCl 100 mg 05/24/19 22:00 05/26/19 05:14 Apresoline PO 100 mg Q8HR LORAINE Administration Heparin Sodium/Sodium Chloride 25,000 unit in 500 mls @ 20 mls/hr 05/25/19 07:00 05/26/19 10:21 Heparin/ 0.45% Nacl-25,000 Unit/500 Ml IV 1,400 units/hr TITRATE LORAINE 28 mls/hr Administration Protocol 1,000 UNITS/HR Sodium Chloride 1,000 mls @ 100 mls/hr 05/26/19 12:00 Nacl 0.9% 1000 Ml IV DIRECT LORAINE Insulin Human Lispro 0 unit 05/24/19 22:00 05/26/19 10:14 Humalog SUB-Q Not Given ACHS [facility] Protocol Isosorbide Mononitrate 60 mg 05/24/19 21:00 05/26/19 10:14 Imdur PO 60 mg QDAY LORAINE Administration Potassium Chloride 10 meq 05/24/19 20:15 05/26/19 10:14 K-Dur PO 10 meq DAILY LORAINE Administration Pravastatin Sodium 40 mg 05/24/19 22:00 05/25/19 21:32 Pravachol PO 40 mg QHS LORAINE Administration Ranolazine 500 mg 05/26/19 10:00 05/26/19 10:13 Ranexa Er PO 500 mg BID LORAINE Administration
--- NOTE | 2019-05-26 11:46 | Progress Note ---
Assessment and Plan - Patient Problems (1) Acute on chronic renal failure Current Visit: Yes Status: Acute Qualifiers: Acute renal failure type: unspecified Chronic kidney disease stage: stage 4 (severe) Qualified Code(s): N17.9 - Acute kidney failure, unspecified; N18.4 - Chronic kidney disease, stage 4 (severe) Plan to address problem: Acute on chronic renal failure baseline GFR is to be mid 20s to 30s Current creatinine is at 3.7 Review echocardiogram and chest x-ray Clinically does not appear volume overloaded Trial of Gentle IVF today We'll stop metformin and spironolactone Strict input and outputs Avoid nephrotoxic medication (2) NSTEMI (non-ST elevated myocardial infarction) Current Visit: Yes Status: Acute Plan to address problem: NSTEMI Elevated troponin cardiology following currently on heparin infusion Management by cardiology (3) CHF (congestive heart failure) Current Visit: Yes Status: Chronic Qualifiers: Heart failure type: combined systolic and diastolic Plan to address problem: Congestive heart failure I reviewed Echocardiogram with mitral valve regurgitation , elevated pressures does not appear to be in exacerbation work up for cardiac ischemia (4) HTN (hypertension) Current Visit: Yes Status: Chronic Qualifiers: Hypertension type: essential hypertension Qualified Code(s): I10 - Essential (primary) hypertension Plan to address problem: Hypertension continue medications Hold Spironolactone given acute kidney injury Subjective Interval history: 43-year-old gentleman with medical history significant for diabetes mellitus type 2, hypertension, valvular heart disease with mitral regurgitation admitted with complaints of chest pain. Patient noted chest pain in the hours prior to admission denies any nausea vomiting or diarrhea denies any decreased urine output has a history of chronic kidney disease follows up with Dr. العلي. Patient seen today ,denies any shortness of breath , orthopnea or PND Denies any abdominal pain ,fever or chills does not have any lower extremity edema. Objective - Vital Signs Vital signs: Vital Signs - 12hr 05/26/19 05/26/19 05/26/19 00:05 03:45 08:05 Temperature 98.0 F 98.0 F 99.1 F Pulse Rate 66 69 68 Respiratory 18 18 18 Rate Blood Pressure 137/86 173/103 174/106 O2 Sat by Pulse 94 96 99 Oximetry 05/26/19 05/26/19 10:13 10:14 Temperature Pulse Rate Respiratory Rate Blood Pressure 174/106 174/106 O2 Sat by Pulse Oximetry - General Appearance General appearance: well-developed, well-nourished EENT: ATNC, PERRL Neck: no JVD Respiratory: Present: Clear to Ascultation Cardiology: regular, S1S2 Gastrointestinal: normal, normoactive bowel sounds Integumentary: no rash Neurologic: no focal deficit, alert and oriented x3 Musculoskeletal: deferred Psychiatric: mood/affect appropriate - Lab 05/25/19 07:02 05/26/19 07:19 Most recent lab results Calcium 9.3 mg/dL (8.4-10.2) 05/26/19 07:19 Magnesium 2.40 mg/dL (1.7-2.3) H 05/24/19 09:34 - Imaging Chest x-ray: image reviewed (I reviewed CXR underpenetrated film, haziness noted. ) Medications & Allergies - Medications Allergies/Adverse Reactions: Allergies No Known Allergies Allergy (Verified 10/02/17 18:06) Home Medications: Home Medications Medication Instructions Recorded Confirmed Last Taken Type Aspirin [Aspirin BABY CHEW TAB] 81 mg PO QDAY #30 tab.chew 09/29/17 05/24/19 1 Day Ago Rx ~01/05/18 hydrALAZINE [Apresoline TAB] 100 mg PO Q8HR #90 tab 09/29/17 05/24/19 1 Day Ago Rx ~01/05/18 Pravastatin [Pravachol] 40 mg PO QHS 11/05/17 05/24/19 1 Day Ago History ~01/05/18 glipiZIDE [Glipizide] 5 mg PO BID 11/05/17 05/24/19 1 Day Ago History ~01/05/18 ISOSORBIDE MONOnitrate [Imdur ER] 60 mg PO QDAY #30 tablet 01/07/18 05/24/19 Unknown Rx Carvedilol 12.5 mg PO BID 05/24/19 05/24/19 Unknown History Furosemide 40 mg PO DAILY 05/24/19 05/24/19 Unknown History Gabapentin 100 mg PO TID 05/24/19 05/24/19 Unknown History Potassium Chloride 1 tab PO DAILY 05/24/19 05/24/19 Unknown History Spironolactone 50 mg PO DAILY 05/24/19 05/24/19 Unknown History cloNIDine [Catapres] 0.2 mg PO BID 05/24/19 05/24/19 Unknown History metFORMIN 1,000 mg PO BID 05/24/19 05/24/19 Unknown History Active Medications: Generic Name Dose Route Start Last Admin Trade Name Georgette PRN Reason Stop Dose Admin Aspirin 81 mg 05/25/19 10:00 05/26/19 10:13 Baby Aspirin PO 81 mg QDAY LORAINE Administration Carvedilol 12.5 mg 05/24/19 22:00 05/26/19 10:13 Coreg PO 12.5 mg BID LORAINE Administration Clonidine HCl 0.2 mg 05/24/19 22:00 05/26/19 10:14 Catapres PO 0.2 mg BID LORAINE Administration Gabapentin 100 mg 05/25/19 08:00 05/26/19 10:13 Neurontin PO 100 mg TID LORAINE Administration Glipizide 5 mg 05/24/19 22:00 05/26/19 10:14 Glucotrol PO 5 mg BIDDIAB LORAINE Administration Hydralazine HCl 100 mg 05/24/19 22:00 05/26/19 05:14 Apresoline PO 100 mg Q8HR LORAINE Administration Heparin Sodium/Sodium Chloride 25,000 unit in 500 mls @ 20 mls/hr 05/25/19 07:00 05/26/19 10:21 Heparin/ 0.45% Nacl-25,000 Unit/500 Ml IV 1,400 units/hr TITRATE LORAINE 28 mls/hr Administration Protocol 1,000 UNITS/HR Sodium Chloride 1,000 mls @ 100 mls/hr 05/26/19 12:00 Nacl 0.9% 1000 Ml IV DIRECT [facility] Insulin Human Lispro 0 unit 05/24/19 22:00 05/26/19 10:14 Humalog SUB-Q Not Given ACHS [facility] Protocol Isosorbide Mononitrate 60 mg 05/24/19 21:00 05/26/19 10:14 Imdur PO 60 mg QDAY LORAINE Administration Potassium Chloride 10 meq 05/24/19 20:15 05/26/19 10:14 K-Dur PO 10 meq DAILY LORAINE Administration Pravastatin Sodium 40 mg 05/24/19 22:00 05/25/19 21:32 Pravachol PO 40 mg QHS LORAINE Administration Ranolazine 500 mg 05/26/19 10:00 06/25/19 10:13 Ranexa Er PO 500 mg BID LORAINE Administration
[2019-05-26] MEDS: NACL 0.9% 1000 ML 1,000 ML IV SCH (18:14)
[2019-05-26] MEDS: PRAVACHOL PO SCH (21:40)
[2019-05-27 05:00] LABS: Hematocrit 36.9 % (35.5-45.6); Hemoglobin 12.3 gm/dl (11.8-15.2)
[2019-05-27 05:12] LABS: Calcium 8.8 mg/dL (8.4-10.2)
[2019-05-27] MEDS: NACL 0.9% 1000 ML 1,000 ML IV SCH ×2 (05:28→16:29)
[2019-05-27] MEDS: APRESOLINE PO SCH ×3 (05:28→22:12)
[2019-05-27 06:25] LABS: Creatinine,Urine 101.3 mg/dL (0.1-20.0)
[2019-05-27 06:29] LABS: Microalbumin/Creatinine Ratio 453.1 ug/mg
[2019-05-27] MEDS: HumaLOG SUB-Q SCH ×4 (08:18→22:12)
--- NOTE | 2019-05-27 09:04 | XRay Report ---
AP CHEST: HISTORY: Acute kidney injury, CHF Compared to 05/24/19. Heart size and pulmonary vessels have decreased slightly since the previous exam and now are borderline. The lungs are clear. No evidence for pneumonia, CHF or pneumothorax. IMPRESSION: Near normal AP chest. Borderline heart size and pulmonary venous structures.
--- NOTE | 2019-05-27 10:16 | Progress Note ---
<TIN MADISON - Last Filed: 05/27/19 10:13> Assessment and Plan Atypical chest pain Coronary artery disease 09/2017 Right/C findings: elevated left and right sided filling pressures chronic total occlusion of the mid right coronary artery, with the distal vessel perfused by right to right and [id number] collaterals. otherwise, mild nonobstructive atherosclerosis of the left coronary system. Medical therapy recommended Non-specific troponin abnormality in the setting of renal failure Diabetes mellitus Hypertension Chronic Renal disease Tobacco abuse Echocardiogram 10/2017 reports a well preserved left ventricular ejection fraction, 50-55%. Mild dilatation of the descending aorta 4.3, moderate to severe mitral regurgitation and moderate to severe pulmonary hypertension with pulmonary artery systolic pressure of 65. Recommendations: Medical therapy for his coronary artery disease as tolerated including beta blockers, anti-platelet, statins, nitrates and ranexa. Smoking cessation Ultimately, he may benefit from noninvasive ischemic assessment on optimal medical therapy, either predischarge or early in the outpatient setting. Subjective Date of service: 05/27/19 Interval history: Patient denies chest pain and shortness of breath. Objective Vital Signs Temp Pulse Resp BP Pulse Ox 05/27/19 08:26 69 05/27/19 08:22 99 05/27/19 07:49 98.6 F 73 16 170/99 97 05/27/19 04:14 97.7 F 73 18 176/104 95 05/26/19 23:37 98.2 F 70 17 143/94 95 05/26/19 19:48 77 05/26/19 19:08 98.2 F 72 17 198/116 96 05/26/19 18:54 77 05/26/19 15:31 98.6 F 69 18 176/111 97 05/26/19 11:48 99.1 F 18 122/91 93 05/26/19 11:00 85 - Physical Examination General: No Apparent Distress HEENT: Positive: PERRL Neck: Positive: trachea midline Cardiac: Positive: Reg Rate and Rhythm Lungs: Positive: Decreased Breath Sounds Neuro: Positive: Grossly Intact Extremities: Absent: edema - Labs and Meds CBC 05/27/19 Range/Units 04:05 Hgb 12.3 (11.8-15.2) gm/dl Hct 36.9 (35.5-45.6) % Plt Count 249 (140-440) K/mm3 Comprehensive Metabolic Panel 05/27/19 Range/Units 04:05 Sodium 137 (137-145) mmol/L Potassium 4.2 (3.6-5.0) mmol/L Chloride 100.1 (98-107) mmol/L Carbon Dioxide 21 L (22-30) mmol/L BUN 52 H (9-20) mg/dL Creatinine 3.5 H (0.8-1.5) mg/dL Glucose 138 H (75-100) mg/dL Calcium 8.8 (8.4-10.2) mg/dL <BENJAMIN SANTACRUZ - Last Filed: 05/27/19 13:13> Assessment and Plan I've seen and evaluated the patient and agree with the assessment and plan. The patient presents with atypical chest pain with a history of coronary artery disease, nonspecific troponin elevation, diabetes mellitus, hypertension, and chronic renal disease. Patient's echocardiogram shows normal ejection fraction 5055%. At this time recommend continued medical therapy for treatment of coronary artery disease with beta georges and aspirin high intensity statin, nitrates and Ranexa. Recommend smoking succession. Objective Vital Signs Temp Pulse Resp BP Pulse Ox 05/27/19 10:23 69 05/27/19 08:26 69 05/27/19 08:22 99 05/27/19 07:49 98.6 F 73 16 170/99 97 05/27/19 04:14 97.7 F 73 18 176/104 95 05/26/19 23:37 98.2 F 70 17 143/94 95 05/26/19 19:48 77 05/26/19 19:08 98.2 F 72 17 198/116 96 05/26/19 18:54 77 05/26/19 15:31 98.6 F 69 18 176/111 97 - Labs and Meds CBC 05/27/19 Range/Units 04:05 Hgb 12.3 (11.8-15.2) gm/dl Hct 36.9 (35.5-45.6) % Plt Count 249 (140-440) K/mm3 Comprehensive Metabolic Panel 05/27/19 Range/Units 04:05 Sodium 137 (137-145) mmol/L Potassium 4.2 (3.6-5.0) mmol/L Chloride 100.1 (98-107) mmol/L Carbon Dioxide 21 L (22-30) mmol/L BUN 52 H (9-20) mg/dL Creatinine 3.5 H (0.8-1.5) mg/dL Glucose 138 H (75-100) mg/dL Calcium 8.8 (8.4-10.2) mg/dL
[2019-05-27] MEDS: NEURONTIN PO SCH ×3 (10:22→22:12)
[2019-05-27] MEDS: GLUCOTROL PO SCH ×2 (10:23→15:15)
[2019-05-27] MEDS: IMDUR PO SCH (10:23)
[2019-05-27] MEDS: LOVENOX SUB-Q SCH (10:23)
[2019-05-27] MEDS: RANEXA ER PO SCH ×2 (10:23→22:12)
[2019-05-27] MEDS: K-DUR PO SCH (10:23)
[2019-05-27] MEDS: BABY ASPIRIN PO SCH (10:23)
[2019-05-27] MEDS: CATAPRES PO SCH ×2 (10:24→22:11)
[2019-05-27] MEDS: COREG PO SCH ×2 (10:24→22:14)
--- NOTE | 2019-05-27 11:01 | Progress Note ---
Assessment and Plan - Patient Problems (1) Acute on chronic renal failure Current Visit: Yes Status: Acute Qualifiers: Acute renal failure type: unspecified Chronic kidney disease stage: stage 4 (severe) Qualified Code(s): N17.9 - Acute kidney failure, unspecified; N18.4 - Chronic kidney disease, stage 4 (severe) Plan to address problem: Acute on chronic renal failure versus progressive chronic kidney disease baseline GFR is to be mid 20s to 30s Current creatinine is at 3.5 from 3.7 on admission Review echocardiogram and chest x-ray Clinically does not appear volume overloaded Continue gentle intravenous fluids I reviewed renal ultrasound with echogenic kidneys without hydronephrosis We'll stop metformin and spironolactone Strict input and outputs Avoid nephrotoxic medication (2) NSTEMI (non-ST elevated myocardial infarction) Current Visit: Yes Status: Acute Plan to address problem: NSTEMI Elevated troponin cardiology following currently on heparin infusion Management by cardiology (3) CHF (congestive heart failure) Current Visit: Yes Status: Chronic Qualifiers: Heart failure type: combined systolic and diastolic Plan to address problem: Congestive heart failure I reviewed Echocardiogram with mitral valve regurgitation , elevated pressures does not appear to be in exacerbation work up for cardiac ischemia (4) HTN (hypertension) Current Visit: Yes Status: Chronic Qualifiers: Hypertension type: essential hypertension Qualified Code(s): I10 - Essential (primary) hypertension Plan to address problem: Hypertension:uncontrolled. Continue clonidine 0.2 mg twice a day Continue carvedilol 12.5 mg twice a day We'll add amlodipine 5 mg daily Hold Spironolactone given acute kidney injury Subjective Interval history: 43-year-old gentleman with medical history significant for diabetes mellitus type 2, hypertension, valvular heart disease with mitral regurgitation admitted with complaints of chest pain. Patient noted chest pain in the hours prior to admission denies any nausea vomiting or diarrhea denies any decreased urine output has a history of chronic kidney disease follows up with Dr. العلي. Patient seen today,denies any shortness of breath , orthopnea or PND Denies any abdominal pain ,fever or chills does not have any lower extremity edema. On intravenous fluids be followed by cardiology Objective - Vital Signs Vital signs: Vital Signs - 12hr 05/26/19 05/27/19 05/27/19 23:37 04:14 07:49 Temperature 98.2 F 97.7 F 98.6 F Pulse Rate 70 73 73 Respiratory 17 18 16 Rate Blood Pressure 143/94 176/104 170/99 O2 Sat by Pulse 95 95 97 Oximetry 05/27/19 05/27/19 05/27/19 08:22 08:26 10:23 Temperature Pulse Rate 69 69 Respiratory Rate Blood Pressure O2 Sat by Pulse 99 Oximetry - General Appearance General appearance: well-developed, well-nourished EENT: ATNC, PERRL, mucous membranes moist Neck: no JVD Respiratory: Present: Clear to Ascultation Cardiology: regular, S1S2 Gastrointestinal: normal, normoactive bowel sounds Integumentary: no rash Neurologic: alert and oriented x3, CN 3-12 intact Musculoskeletal: deferred Psychiatric: mood/affect appropriate - Lab 05/27/19 04:05 05/27/19 04:05 Most recent lab results Calcium 8.8 mg/dL (8.4-10.2) 05/27/19 04:05 Magnesium 2.40 mg/dL (1.7-2.3) H 05/24/19 09:34 101.3 mg/dL (0.1-20.0) H 05/27/19 05:35 92 mg/dL (5-11.8) H 05/27/19 05:35 - Imaging Chest x-ray: image reviewed (I reviewed chest x-ray without overt pulmonary edema) Medications & Allergies - Medications Allergies/Adverse Reactions: Allergies No Known Allergies Allergy (Verified 10/02/17 18:06) Home Medications: Home Medications Medication Instructions Recorded Confirmed Last Taken Type Aspirin [Aspirin BABY CHEW TAB] 81 mg PO QDAY #30 tab.chew 09/29/17 05/24/19 1 Day Ago Rx ~01/05/18 hydrALAZINE [Apresoline TAB] 100 mg PO Q8HR #90 tab 09/29/17 05/24/19 1 Day Ago Rx ~01/05/18 Pravastatin [Pravachol] 40 mg PO QHS 11/05/17 05/24/19 1 Day Ago History ~01/05/18 glipiZIDE [Glipizide] 5 mg PO BID 11/05/17 05/24/19 1 Day Ago History ~01/05/18 ISOSORBIDE MONOnitrate [Imdur ER] 60 mg PO QDAY #30 tablet 01/07/18 05/24/19 Unknown Rx Carvedilol 12.5 mg PO BID 05/24/19 05/24/19 Unknown History Furosemide 40 mg PO DAILY 05/24/19 05/24/19 Unknown History Gabapentin 100 mg PO TID 05/24/19 05/24/19 Unknown History Potassium Chloride 1 tab PO DAILY 05/24/19 05/24/19 Unknown History Spironolactone 50 mg PO DAILY 05/24/19 05/24/19 Unknown History cloNIDine [Catapres] 0.2 mg PO BID 05/24/19 05/24/19 Unknown History metFORMIN 1,000 mg PO BID 05/24/19 05/24/19 Unknown History Active Medications: Generic Name Dose Route Start Last Admin Trade Name Georgette PRN Reason Stop Dose Admin Aspirin 81 mg 05/25/19 10:00 05/27/19 10:23 Baby Aspirin PO 81 mg QDAY LORAINE Administration Carvedilol 12.5 mg 05/24/19 22:00 05/27/19 10:24 Coreg PO 12.5 mg BID LORAINE Administration Clonidine HCl 0.2 mg 05/24/19 22:00 05/27/19 10:24 Catapres PO 0.2 mg BID LORAINE Administration Enoxaparin Sodium 30 mg 05/27/19 10:00 05/27/19 10:23 Lovenox SUB-Q 30 mg QDAY LORAINE Administration Gabapentin 100 mg 05/25/19 08:00 05/27/19 10:22 Neurontin PO 100 mg TID LORAINE Administration Glipizide 5 mg 05/24/19 22:00 05/27/19 10:23 Glucotrol PO 5 mg BIDDIAB LORAINE Administration Hydralazine HCl 100 mg 05/24/19 22:00 05/27/19 05:28 Apresoline PO 100 mg Q8HR LORAINE Administration Sodium Chloride 1,000 mls @ 100 mls/hr 05/26/19 12:00 05/27/19 05:28 Nacl 0.9% 1000 Ml IV 100 mls/hr DIRECT LORAINE Administration Insulin Human Lispro 0 unit 05/24/19 22:00 05/27/19 08:18 Humalog SUB-Q Not Given ACHS [facility] Protocol Isosorbide Mononitrate 60 mg 05/24/19 21:00 05/27/19 10:23 Imdur PO 60 mg QDAY LORAINE Administration Potassium Chloride 10 meq 05/24/19 20:15 05/27/19 10:23 K-Dur PO 10 meq DAILY LORAINE Administration Pravastatin Sodium 40 mg 05/24/19 22:00 05/26/19 21:40 Pravachol PO 40 mg QHS LORAINE Administration Ranolazine 500 mg 05/26/19 10:00 05/27/19 10:23 Ranexa Er PO 500 mg BID LORAINE Administration
--- NOTE | 2019-05-27 12:20 | Progress Note ---
Assessment and Plan Assessment and plan: Acute on CKD. Nephrology following. Metformin and spironolactone have been discontinued. Nephrology is for gentle hydration. renal ultrasound with echogenic kidneys without hydronephrosis Strict input and outputs Avoid nephrotoxic medication Chest pain. Echocardiogram 10/2017 reports a well preserved left ventricular ejection fraction, 50-55%. Mild dilatation of the descending aorta 4.3, moderate to severe mitral regurgitation and moderate to severe pulmonary hypertension with pulmonary artery systolic pressure of 65. Coronary artery disease. Medical therapy for his coronary artery disease as tolerated including beta blockers, anti-platelet, statins, nitrates and ranexa. Cardiology reports he may benefit from noninvasive ischemic assessment on optimal medical therapy, either predischarge or early in the outpatient setting. Tobacco abuse. Smoking cessation counseling Elevated troponin. Nonspecific elevation in the setting of renal failure. Hypertension. Continue antihypertensive medications. History Interval history: This is a 43-year old man with a history of kidney disease, hypertension, diabetes and coronary artery disease. A cardiac catheterization done in 2016 reports a chronic total occlusion of the mid right coronary artery with the distal vessel perfused by right to right and [id number] collaterals. Otherwise, mild nonobstructive atherosclerosis of the left coronary system. An echocardiogram 10/02/17 showed left ventricular systolic function well preserved with ejection fraction 50-55%. Patient has been noncompliant with outpatient cardiac follow-ups. Patient presented with chest pain, admitted for further evaluation. Cardiac consultation has been requested. Patient reports intermittent chest pain is mid-sternal associated with dizziness. Initial labs shows a creatinine of 3.7, a decline when compared to 2.8 six months ago. Troponin of 0.178, 0.208. His EKG is sinus rhythm with LVH. Hospitalist Physical - Constitutional Vitals: Temp Pulse Resp BP Pulse Ox 98.6 F 69 16 170/99 99 05/27/19 07:49 05/27/19 10:23 05/27/19 07:49 05/27/19 07:49 05/27/19 08:22 General appearance: Present: no acute distress - EENT Eyes: Present: PERRL, EOM intact ENT: hearing intact, clear oral mucosa, dentition normal - Neck Neck: Present: supple, normal ROM - Respiratory Respiratory effort: normal Respiratory: bilateral: CTA - Cardiovascular Rhythm: regular Heart Sounds: Present: S1 & S2. Absent: gallop, rub - Extremities Extremities: no ischemia, No edema, Full ROM - Abdominal General gastrointestinal: soft, non-tender, non-distended, normal bowel sounds - Integumentary Integumentary: Present: clear, warm, dry - Neurologic Neurologic: CNII-XII intact, moves all extremities Results - Labs CBC & Chem 7: 05/27/19 04:05 05/27/19 04:05 Labs: Laboratory Last Values WBC 9.6 K/mm3 (4.5-11.0) 05/24/19 09:34 RBC 4.26 M/mm3 (3.65-5.03) 05/24/19 09:34 Hgb 12.3 gm/dl (11.8-15.2) 05/27/19 04:05 Hct 36.9 % (35.5-45.6) 05/27/19 04:05 MCV 82 fl (84-94) L 05/24/19 09:34 MCH 28 pg (28-32) 05/24/19 09:34 MCHC 34 % (32-34) 05/24/19 09:34 RDW 17.4 % (13.2-15.2) H 05/24/19 09:34 Plt Count 249 K/mm3 (140-440) 05/27/19 04:05 Lymph % (Auto) 7.8 % (13.4-35.0) L 05/24/19 09:34 [place] % (Auto) 11.0 % (0.0-7.3) H 05/24/19 09:34 Eos % (Auto) 2.7 % (0.0-4.3) 05/24/19 09:34 Baso % (Auto) 0.9 % (0.0-1.8) 05/24/19 09:34 Lymph # 0.8 K/mm3 (1.2-5.4) L 05/24/19 09:34 [place] # 1.1 K/mm3 (0.0-0.8) H 05/24/19 09:34 Eos # 0.3 K/mm3 (0.0-0.4) 05/24/19 09:34 Baso # 0.1 K/mm3 (0.0-0.1) 05/24/19 09:34 Seg Neutrophils % 77.6 % (40.0-70.0) H 05/24/19 09:34 Seg Neutrophils # 7.5 K/mm3 (1.8-7.7) 05/24/19 09:34 PT 12.2 Sec. (12.2-14.9) 05/25/19 07:02 INR 0.93 (0.87-1.13) 05/25/19 07:02 APTT 29.3 Sec. (24.2-36.6) 05/25/19 07:02 Heparin Anti-Xa Level 0.12 U.I./ml (0.3-0.7) L 05/26/19 07:18 Sodium 137 mmol/L (137-145) 05/27/19 04:05 Potassium 4.2 mmol/L (3.6-5.0) 05/27/19 04:05 Chloride 100.1 mmol/L (98-107) 05/27/19 04:05 Carbon Dioxide 21 mmol/L (22-30) L 05/27/19 04:05 20 mmol/L 05/27/19 04:05 BUN 52 mg/dL (9-20) H 05/27/19 04:05 3.5 mg/dL (0.8-1.5) H 05/27/19 04:05 Estimated GFR 23 ml/min 05/27/19 04:05 15 % 05/27/19 04:05 Glucose 138 mg/dL (75-100) H 05/27/19 04:05 POC Glucose 211 (70-105) H 05/27/19 11:17 Lactic Acid 1.30 mmol/L (0.7-2.0) 05/24/19 11:37 Calcium 8.8 mg/dL (8.4-10.2) 05/27/19 04:05 Magnesium 2.40 mg/dL (1.7-2.3) H 05/24/19 09:34 0.30 mg/dL (0.1-1.2) 05/24/19 09:34 < 0.2 mg/dL (0-0.2) 05/24/19 09:34 AST 12 units/L (5-40) 05/24/19 09:34 ALT 12 units/L (7-56) 05/24/19 09:34 75 units/L (35-129) 05/24/19 09:34 0.208 ng/mL (0.00-0.029) H* 05/25/19 04:30 NT-Pro-B Natriuret Pep 2948 pg/mL (0-450) H 05/27/19 04:05 7.1 g/dL (6.3-8.2) 05/24/19 09:34 4.0 g/dL (3.9-5) 05/24/19 09:34 1.3 % 05/24/19 09:34 Triglycerides 76 mg/dL (2-149) 05/24/19 09:34 Cholesterol 103 mg/dL (50-199) 05/24/19 09:34 58 mg/dL (50-130) 05/24/19 09:34 40 mg/dL (40-59) 05/24/19 09:34 2.57 % 05/24/19 09:34 101.3 mg/dL (0.1-20.0) H 05/27/19 05:35 45.9 mg/dL (0.1-34.0) H 05/27/19 05:35 Microalb/Creat Ratio 453.1 ug/mg 05/27/19 05:35 92 mg/dL (5-11.8) H 05/27/19 05:35 Active Medications - Current Medications Current Medications: Generic Name Dose Route Start Last Admin Trade Name Freq PRN Reason Stop Dose Admin Amlodipine Besylate 5 mg 05/27/19 12:00 Norvasc PO QDAY LORAINE Aspirin 81 mg 05/25/19 10:00 05/27/19 10:23 Baby Aspirin PO 81 mg QDAY LORAINE Administration Carvedilol 12.5 mg 05/24/19 22:00 05/27/19 10:24 Coreg PO 12.5 mg BID LORAINE Administration Clonidine HCl 0.2 mg 05/24/19 22:00 05/27/19 10:24 Catapres PO 0.2 mg BID LORAINE Administration Enoxaparin Sodium 30 mg 05/27/19 10:00 05/27/19 10:23 Lovenox SUB-Q 30 mg QDAY LORAINE Administration Gabapentin 100 mg 05/25/19 08:00 05/27/19 10:22 Neurontin PO 100 mg TID LORAINE Administration Glipizide 5 mg 05/24/19 22:00 05/27/19 10:23 Glucotrol PO 5 mg BIDDIAB LORAINE Administration Hydralazine HCl 100 mg 05/24/19 22:00 05/27/19 05:28 Apresoline PO 100 mg Q8HR LORAINE Administration Sodium Chloride 1,000 mls @ 100 mls/hr 05/26/19 12:00 05/27/19 05:28 Nacl 0.9% 1000 Ml IV 100 mls/hr DIRECT LORAINE Administration Insulin Human Lispro 0 unit 05/24/19 22:00 05/27/19 08:18 Humalog SUB-Q Not Given ACHS [facility] Protocol Isosorbide Mononitrate 60 mg 05/24/19 21:00 05/27/19 10:23 Imdur PO 60 mg QDAY LORAINE Administration Potassium Chloride 10 meq 05/24/19 20:15 05/27/19 10:23 K-Dur PO 10 meq DAILY LORAINE Administration Pravastatin Sodium 40 mg 05/24/19 22:00 05/26/19 21:40 Pravachol PO 40 mg QHS LORAINE Administration Ranolazine 500 mg 05/26/19 10:00 05/27/19 10:23 Ranexa Er PO 500 mg BID LORAINE Administration
[2019-05-27] MEDS: NORVASC PO SCH (15:30)
[2019-05-27] MEDS ORDERED: PERCOCET 5/325 PO PRN (21:27)
[2019-05-27] MEDS: PRAVACHOL PO SCH (22:12)
[2019-05-28] MEDS: NACL 0.9% 1000 ML 1,000 ML IV SCH (00:26)
[2019-05-28] MEDS: APRESOLINE PO SCH ×2 (06:09→15:46)
[2019-05-28 07:10] LABS: Calcium 8.4 mg/dL (8.4-10.2)
[2019-05-28] MEDS: HumaLOG SUB-Q SCH ×3 (07:30→12:43)
--- NOTE | 2019-05-28 09:15 | Progress Note ---
Assessment and Plan Atypical chest pain Coronary artery disease 09/2017 Right/C findings: elevated left and right sided filling pressures chronic total occlusion of the mid right coronary artery, with the distal vessel perfused by right to right and [id number] collaterals. otherwise, mild nonobstructive atherosclerosis of the left coronary system. Medical therapy recommended Non-specific troponin abnormality in the setting of renal failure Diabetes mellitus Hypertension Chronic Renal disease Tobacco abuse Echocardiogram 10/2017 reports a well preserved left ventricular ejection fraction, 50-55%. Mild dilatation of the descending aorta 4.3, moderate to severe mitral regurgitation and moderate to severe pulmonary hypertension with pulmonary artery systolic pressure of 65. Recommendations: Continue medical therapy for his coronary artery disease as tolerated including beta blockers, anti-platelet, statins, nitrates and ranexa. Smoking cessation Ultimately, he may benefit from noninvasive ischemic assessment on optimal medical therapy, in the outpatient setting. Once discharged, patient will follow up with [facility] June 10 at 220p. Subjective Date of service: 05/28/19 Interval history: Patient denies chest pain and shortness of breath. Wants to go home. Objective Vital Signs Temp Pulse Resp BP Pulse Ox 05/28/19 04:18 97.9 F 64 18 152/99 94 05/27/19 23:22 98.4 F 74 20 131/81 97 05/27/19 22:14 76 162/108 05/27/19 22:11 76 162/108 05/27/19 19:30 98.5 F 76 17 162/108 99 05/27/19 18:06 70 05/27/19 14:45 98.2 F 67 16 158/94 99 05/27/19 10:23 69 - Physical Examination General: No Apparent Distress HEENT: Positive: PERRL Neck: Positive: trachea midline Cardiac: Positive: Reg Rate and Rhythm Lungs: Positive: Decreased Breath Sounds Neuro: Positive: Grossly Intact Extremities: Absent: edema - Labs and Meds Comprehensive Metabolic Panel 05/28/19 Range/Units 05:52 Sodium 138 (137-145) mmol/L Potassium 4.1 (3.6-5.0) mmol/L Chloride 104.2 (98-107) mmol/L Carbon Dioxide 20 L (22-30) mmol/L BUN 49 H (9-20) mg/dL Creatinine 3.6 H (0.8-1.5) mg/dL Glucose 121 H (75-100) mg/dL Calcium 8.4 (8.4-10.2) mg/dL
[2019-05-28] MEDS: IMDUR PO SCH (09:34)
[2019-05-28] MEDS: NEURONTIN PO SCH ×2 (09:34→15:45)
[2019-05-28] MEDS: K-DUR PO SCH (09:34)
[2019-05-28] MEDS: NORVASC PO SCH (09:34)
[2019-05-28] MEDS: LOVENOX SUB-Q SCH (09:34)
[2019-05-28] MEDS: RANEXA ER PO SCH (09:34)
[2019-05-28] MEDS: GLUCOTROL PO SCH (09:34)
[2019-05-28] MEDS: BABY ASPIRIN PO SCH (09:34)
[2019-05-28] MEDS: COREG PO SCH (09:34)
--- NOTE | 2019-05-28 09:48 | Discharge Summary ---
Providers - Providers Date of Admission: 05/24/19 12:16 Date of discharge: 05/28/19 Attending physician: SRINIVAS HERNADEZ 05/24/19 20:21 Consult to Physician [CONS] Routine Comment: Consulting Provider: TERI ESQUEDA Physician Instructions: Reason For Exam: chest pain 05/25/19 06:40 Consult to Physician [CONS] Routine Comment: Consulting Provider: ALINA HARDING Physician Instructions: Reason For Exam: CKD Hospitalization Reason for admission: cp Condition: Stable Hospital course: Patient is a 43-year-old man with a history of coronary artery disease, a cardiac catheterization a year and a half ago demonstrated a chronic total occlusion of the midright coronary artery, for which he is on medical therapy. Left ventricular ejection fraction was well preserved, 50-55%. Comorbidities include mild dilatation of the descending aorta 4.3, moderate to severe mitral regurgitation and moderate to severe pulmonary hypertension with pulmonary artery systolic pressure of 65. He was admitted to the hospital with atypical chest pain. He described nonexertional, poorly characterized chest pain associated with some arm weakness. On presentation, EKG is normal sinus rhythm, left ventricular hypertrophy. There were nonspecific ST and T-wave of hemoptysis. The cardiac troponin levels with LAT, ranging between 0.17 and 0.2 on multiple readings. Notably, this troponin level is unchanged when compared with the measurements on previous hospitalizations dating back to November 2017. Also notably, patient has chronic kidney disease, with baseline creatinine of 2.5-2.8, and on the current presentation there is worse renal insufficiency, creatinine 3.7. The patient was admitted with diagnosis of acute on chronic kidney disease and atypical chest pain. Cardiology and nephrology were consulted. Cardiology opted to optimize medical therapy for his coronary artery disease with nitrates, beta blockers and Ranexa as tolerated. Also, Aggressive risk factor modification, including smoking cessation, high-dose statins, oral antiplatelet therapy. Cardiology felt that he may benefit from noninvasive ischemic assessment but plans to do this as an outpatient. They do not feel that the patient will be a candidate for invasive assessment due to renal failure. Nephrology saw the patient and stopped metformin and spironolactone. Patient was given gentle IV fluid hydration. Creatinine remained stable. Renal ultrasound was obtained which revealed echogenic kidneys without hydronephrosis. Patient had no further complaints of chest pain was felt to have received maximal hospital benefit for discharge. Dedicated discharge time 35 minutes. Disposition: [id number] TO HOME OR SELFCARE Time spent for discharge: 35 - Discharge Diagnoses (1) Acute on chronic renal failure Status: Acute Qualifiers: Acute renal failure type: unspecified Chronic kidney disease stage: stage 4 (severe) Qualified Code(s): N17.9 - Acute kidney failure, unspecified; N18.4 - Chronic kidney disease, stage 4 (severe) (2) Cardiomyopathy Status: Acute Qualifiers: Cardiomyopathy type: unspecified Qualified Code(s): I42.9 - Cardiomyopathy, unspecified (3) Chest pain Status: Acute Qualifiers: Chest pain type: unspecified Qualified Code(s): R07.9 - Chest pain, unspecified (4) CAD (coronary artery disease) Status: Chronic Qualifiers: Coronary Disease-Associated Artery/Lesion type: [place] artery [place] vs. transplanted heart: [place] heart (5) CHF (congestive heart failure) Status: Chronic Qualifiers: Heart failure type: combined systolic and diastolic (6) CKD (chronic kidney disease) Status: Chronic Qualifiers: Chronic kidney disease stage: stage 4 (severe) Qualified Code(s): N18.4 - Chronic kidney disease, stage 4 (severe) (7) HTN (hypertension) Status: Chronic Qualifiers: Hypertension type: essential hypertension Qualified Code(s): I10 - Essential (primary) hypertension (8) T2DM (type 2 diabetes mellitus) Status: Chronic Qualifiers: Diabetes mellitus alf insulin use: without alf use (9) Accelerated hypertension Status: Acute (10) Renal insufficiency Status: Acute Core Measure Documentation - Palliative Care Palliative Care/ Comfort Measures: Not Applicable - Core Measures Any of the following diagnoses?: none Exam - Constitutional Vitals: Temp Pulse Resp BP Pulse Ox 97.9 F 64 18 152/99 94 05/28/19 04:18 05/28/19 04:18 05/28/19 04:18 05/28/19 04:18 05/28/19 04:18 General appearance: Present: no acute distress, well-nourished - EENT Eyes: Present: PERRL ENT: hearing intact, clear oral mucosa - Neck Neck: Present: supple, normal ROM - Respiratory Respiratory effort: normal Respiratory: bilateral: CTA - Cardiovascular Heart Sounds: Present: S1 & S2. Absent: rub, click - Extremities Extremities: pulses symmetrical, No edema Peripheral Pulses: within normal limits - Abdominal General gastrointestinal: Present: soft, non-tender, non-distended, normal bowel sounds Male genitourinary: Present: normal - Integumentary Integumentary: Present: clear, warm, dry - Musculoskeletal Musculoskeletal: gait normal, strength equal bilaterally - Psychiatric Psychiatric: appropriate mood/affect, intact judgment & insight - Neurologic Neurologic: CNII-XII intact, moves all extremities Plan Activity: no restrictions Weight Bearing Status: Full Weight Bearing Diet: low fat, low cholesterol, low salt, renal Special Instructions: hold Metformin Follow up with: SOULEYMANE ERAZO [Other] - 3-5 Days IVETTE BEDOYA MD [Staff Physician] - 7 Days TERI ESQUEDA MD [Staff Physician] - 7 Days Prescriptions: hydrALAZINE [Apresoline TAB] 100 mg PO Q8HR #90 tab Aspirin [Aspirin BABY CHEW TAB] 81 mg PO QDAY #30 tab.chew Carvedilol 12.5 mg PO BID #60 cloNIDine [Catapres] 0.2 mg PO BID #60 tablet Gabapentin 100 mg PO TID #90 ISOSORBIDE MONOnitrate [Imdur ER] 60 mg PO QDAY #30 tablet Potassium Chloride [K-Dur] 10 meq PO DAILY #30 tablet amLODIPine [Norvasc] 5 mg PO QDAY #30 tablet oxyCODONE /ACETAMINOPHEN [Percocet 5/325 mg] 1 tab PO Q4H PRN #8 tablet PRN Reason: Pain, Moderate (4-6) Pravastatin [Pravachol] 40 mg PO QHS #30 tablet Ranolazine ER [Ranexa ER] 500 mg PO BID #60 tablet
[2019-05-28 14:15] VITALS: BP 158/97
--- NOTE | 2019-05-28 15:18 | Progress Note ---
Assessment and Plan - Patient Problems (1) Acute on chronic renal failure Current Visit: Yes Status: Acute Qualifiers: Acute renal failure type: unspecified Chronic kidney disease stage: stage 4 (severe) Qualified Code(s): N17.9 - Acute kidney failure, unspecified; N18.4 - Chronic kidney disease, stage 4 (severe) Plan to address problem: Acute on chronic renal failure versus progressive chronic kidney disease baseline GFR is to be mid 20s to 30s Current creatinine is at 3.6 from 3.7 on admission Review echocardiogram and chest x-ray Clinically does not appear volume overloaded Will stop intravenous fluids I reviewed renal ultrasound with echogenic kidneys without hydronephrosis We'll stop metformin and spironolactone Hold Diuretics on discharge. 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 العلي. Strict input and outputs Avoid nephrotoxic medication (2) NSTEMI (non-ST elevated myocardial infarction) Current Visit: Yes Status: Acute Plan to address problem: NSTEMI Elevated troponin cardiology following currently on heparin infusion Management by cardiology (3) CHF (congestive heart failure) Current Visit: Yes Status: Chronic Qualifiers: Heart failure type: combined systolic and diastolic Plan to address problem: Congestive heart failure I reviewed Echocardiogram with mitral valve regurgitation , elevated pressures does not appear to be in exacerbation work up for cardiac ischemia (4) HTN (hypertension) Current Visit: Yes Status: Chronic Qualifiers: Hypertension type: essential hypertension Qualified Code(s): I10 - Essential (primary) hypertension Plan to address problem: Hypertension:uncontrolled. Continue clonidine 0.2 mg twice a day Continue carvedilol 12.5 mg twice a day continue amlodipine 5 mg daily Hold Spironolactone given acute kidney injury Subjective Interval history: 43-year-old gentleman with medical history significant for diabetes mellitus type 2, hypertension, valvular heart disease with mitral regurgitation admitted with complaints of chest pain. Patient noted chest pain in the hours prior to admission denies any nausea vomiting or diarrhea denies any decreased urine output has a history of chronic kidney disease follows up with Dr. العلي. Patient seen today,denies any shortness of breath , orthopnea or PND Denies any abdominal pain ,fever or chills does not have any lower extremity edema. Objective - Vital Signs Vital signs: Vital Signs - 12hr 05/28/19 05/28/19 05/28/19 04:18 08:24 11:00 Temperature 97.9 F 98.8 F Pulse Rate 64 71 71 Respiratory 18 12 Rate Blood Pressure 152/99 197/114 O2 Sat by Pulse 94 99 Oximetry 05/28/19 12:29 Temperature 98.2 F Pulse Rate 70 Respiratory 14 Rate Blood Pressure 158/97 O2 Sat by Pulse 98 Oximetry - General Appearance General appearance: well-developed, well-nourished EENT: ATNC, PERRL, mucous membranes moist Neck: no JVD Respiratory: Present: Clear to Ascultation Cardiology: regular, S1S2 Gastrointestinal: normal, normoactive bowel sounds Integumentary: no rash Neurologic: alert and oriented x3 Psychiatric: mood/affect appropriate - Lab 05/27/19 04:05 05/28/19 05:52 Most recent lab results Calcium 8.4 mg/dL (8.4-10.2) 05/28/19 05:52 Magnesium 2.40 mg/dL (1.7-2.3) H 05/24/19 09:34 101.3 mg/dL (0.1-20.0) H 05/27/19 05:35 92 mg/dL (5-11.8) H 05/27/19 05:35 - Imaging Chest x-ray: image reviewed (I reviewed CXR without overt edema. ) Medications & Allergies - Medications Allergies/Adverse Reactions: Allergies No Known Allergies Allergy (Verified 10/02/17 18:06) Home Medications: Home Medications Medication Instructions Recorded Confirmed Last Taken Type glipiZIDE [Glipizide] 5 mg PO BID 11/05/17 05/24/19 1 Day Ago History ~01/05/18 Furosemide 40 mg PO DAILY 05/24/19 05/24/19 Unknown History Potassium Chloride 1 tab PO DAILY 05/24/19 05/24/19 Unknown History Aspirin [Aspirin BABY CHEW TAB] 81 mg PO QDAY #30 tab.chew 05/28/19 Unknown Rx Carvedilol 12.5 mg PO BID #60 05/28/19 Unknown Rx Gabapentin 100 mg PO TID #90 05/28/19 Unknown Rx ISOSORBIDE MONOnitrate [Imdur ER] 60 mg PO QDAY #30 tablet 05/28/19 Unknown Rx Lispro Insulin [HumaLOG] 0 unit SUB-Q ACHS units 05/28/19 Unknown Rx Potassium Chloride [K-Dur] 10 meq PO DAILY #30 tablet 05/28/19 Unknown Rx Pravastatin [Pravachol] 40 mg PO QHS #30 tablet 05/28/19 Unknown Rx Ranolazine ER [Ranexa ER] 500 mg PO BID #60 tablet 05/28/19 Unknown Rx amLODIPine [Norvasc] 5 mg PO QDAY #30 tablet 05/28/19 Unknown Rx cloNIDine [Catapres] 0.2 mg PO BID #60 tablet 05/28/19 Unknown Rx hydrALAZINE [Apresoline TAB] 100 mg PO Q8HR #90 tab 05/28/19 Unknown Rx oxyCODONE /ACETAMINOPHEN [Percocet 1 tab PO Q4H PRN #8 tablet 05/28/19 Unknown Rx 5/325 mg] Active Medications: Generic Name Dose Route Start Last Admin Trade Name Freq PRN Reason Stop Dose Admin Amlodipine Besylate 5 mg 05/27/19 12:00 05/28/19 09:34 Norvasc PO 5 mg QDAY LORAINE Administration Aspirin 81 mg 05/25/19 10:00 05/28/19 09:34 Baby Aspirin PO 81 mg QDAY LORAINE Administration Carvedilol 12.5 mg 05/24/19 22:00 05/28/19 09:34 Coreg PO 12.5 mg BID LORAINE Administration Clonidine HCl 0.2 mg 05/24/19 22:00 05/27/19 22:11 Catapres PO 0.2 mg BID LORAINE Administration Enoxaparin Sodium 30 mg 05/27/19 10:00 05/28/19 09:34 Lovenox SUB-Q 30 mg QDAY LORAINE Administration Gabapentin 100 mg 05/25/19 08:00 05/28/19 09:34 Neurontin PO 100 mg TID LORAINE Administration Glipizide 5 mg 05/24/19 22:00 05/28/19 09:34 Glucotrol PO 5 mg BIDDIAB LORAINE Administration Hydralazine HCl 100 mg 05/24/19 22:00 05/28/19 06:09 Apresoline PO 100 mg Q8HR LORAINE Administration Sodium Chloride 1,000 mls @ 100 mls/hr 05/26/19 12:00 05/28/19 00:26 Nacl 0.9% 1000 Ml IV 100 mls/hr DIRECT LORAINE Administration Insulin Human Lispro 0 unit 05/24/19 22:00 05/28/19 12:43 Humalog SUB-Q 2 unit ACHS LORAINE Administration Protocol Isosorbide Mononitrate 60 mg 05/24/19 21:00 05/28/19 09:34 Imdur PO 60 mg QDAY LORAINE Administration Oxycodone/Acetaminophen 1 tab 05/27/19 21:27 Percocet 5/325 PO Q4H PRN Pain, Moderate (4-6) Potassium Chloride 10 meq 05/24/19 20:15 05/28/19 09:34 K-Dur PO 10 meq DAILY LORAINE Administration Pravastatin Sodium 40 mg 05/24/19 22:00 05/27/19 22:12 Pravachol PO 40 mg QHS LORAINE Administration Ranolazine 500 mg 05/26/19 10:00 05/28/19 09:34 Ranexa Er PO 500 mg BID LORAINE Administration
== END 2019-05-28 18:19 | disposition home or self-care (01) | DRG 280 ==
LOC: ED 08:10 → 4A 12:16
PROVIDERS: ADMIT Internal Medicine; ATTEND Hospitalist
DX: I21.4 Non-ST elevation (NSTEMI) myocardial infarction (principal); I50.43 Acute on chronic combined systolic (congestive) and diastolic (congestive) heart failure; I42.9 Cardiomyopathy, unspecified; N18.4 Chronic kidney disease, stage 4 (severe); I13.0 Hypertensive heart and chronic kidney disease with heart failure and stage 1 through stage 4 chronic kidney disease, or unspecified chronic kidney disease; N17.9 Acute kidney failure, unspecified; I25.10 Atherosclerotic heart disease of native coronary artery without angina pectoris; E11.22 Type 2 diabetes mellitus with diabetic chronic kidney disease; I27.20 Pulmonary hypertension, unspecified; I77.819 Aortic ectasia, unspecified site; I25.119 Atherosclerotic heart disease of native coronary artery with unspecified angina pectoris; I34.0 Nonrheumatic mitral (valve) insufficiency; Z79.84 Long term (current) use of oral hypoglycemic drugs; Z86.73 Personal history of transient ischemic attack (TIA), and cerebral infarction without residual deficits; Z79.82 Long term (current) use of aspirin
CPT/HCPCS: 36415; 71045; 76770; 80048; 80061; 80076; 82043; 82140; 82962; 83735; 83880; 84156; 84484; 85014; 85018; 85025; 85049; 85520; 85610; 85730; 87040; 93005; 93010; G0378; A9270-GY; J1644; J1650; J1815; J1940; J7030

== ENCOUNTER 2021-02-01 10:40 | Outpatient (CLI) | payer MEDICARE ==
--- NOTE | 2021-02-01 12:17 | Cat Scan Report ---
CT CHEST WITHOUT CONTRAST INDICATION / CLINICAL INFORMATION: ANEURYSM OF [place] IN DISEASES CLASSIFIED ELSEWHERE. TECHNIQUE: Axial CT images were obtained through the chest without contrast. Sagittal and coronal reformatted im ages. All CT scans at this location are performed using CT dose reduction for ALARA by means of autom ated exposure control. COMPARISON: 01/06/2018 FINDINGS: HEART: Mild cardiomegaly and mild coronary artery calcifications. No pericardial effusion. THORACIC AORTA: The ascending thoracic aorta measures 4.7 cm. The descending thoracic aorta measures 3.3 cm at the same level. The aortic arch measures 3.3 cm. There are minimal calcific plaques in the descending thoracic aorta. MEDIASTINUM and WIL: No significant abnormality. LUNGS: No acute air space or interstitial disease. No suspicious pulmonary lesion. PLEURA: No significant pleural effusion. No pneumothorax. SKELETAL SYSTEM: No significant abnormality. UPPER ABDOMEN: The adrenal glands are clear mildly thickened without discrete nodule which could repr esent mild hyperplasia. ADDITIONAL FINDINGS: None. IMPRESSION: Mild cardiomegaly. Moderate dilatation of the ascending aorta with max diameter measuring 4.7 cm. Signer Name: Kp Washington Jr, MD Signed: 02/01/2021 12:13 PM Workstation Name: [id number]
== END 2021-02-01 10:41 | disposition home or self-care (01) ==
LOC: CT 10:40
PROVIDERS: ATTEND Internal Medicine Cardiovascular Disease
DX: I51.7 Cardiomegaly (principal); I79.0 Aneurysm of aorta in diseases classified elsewhere; I25.10 Atherosclerotic heart disease of native coronary artery without angina pectoris; I77.810 Thoracic aortic ectasia
CPT/HCPCS: 71250

== ENCOUNTER 2022-02-07 10:03 | Outpatient (CLI) | payer MEDICARE ==
--- NOTE | 2022-02-07 12:27 | Cat Scan Report ---
CT CHEST WITHOUT CONTRAST INDICATION / CLINICAL INFORMATION: I79.0 ANEURYSM OF AORTA. TECHNIQUE: Axial CT images were obtained through the chest without contrast. All CT scans at this location are p erformed using CT dose reduction for ALARA by means of automated exposure control. COMPARISON: None available. FINDINGS: HEART: Enlarged. Moderate coronary artery calcification.. THORACIC AORTA: Slight prominence of the proximal ascending thoracic aorta measuring 4.[address] diameter.. MEDIASTINUM and WIL: No significant abnormality. LUNGS: No acute air space or interstitial disease. Multiple right-sided calcified granulomas present . Several calcified granulomas are also present within the lower lobes bilaterally. PLEURA: No significant pleural effusion. No pneumothorax. ADDITIONAL FINDINGS: None. UPPER ABDOMEN: No significant abnormality. SKELETAL SYSTEM: No significant abnormality. IMPRESSION: 1. Mild dilatation the proximal ascending thoracic aorta measuring 4.2 cm in diameter. 2. Cardiomegaly with moderate coronary artery calcification. Signer Name: Reginald Blanton MD Signed: 02/07/2022 12:22 PM Workstation Name: [id number]
== END 2022-02-07 10:04 | disposition home or self-care (01) ==
LOC: CT 10:03
PROVIDERS: ATTEND Internal Medicine Cardiovascular Disease
DX: J84.10 Pulmonary fibrosis, unspecified (principal); I25.10 Atherosclerotic heart disease of native coronary artery without angina pectoris; I51.7 Cardiomegaly; I79.0 Aneurysm of aorta in diseases classified elsewhere; I77.810 Thoracic aortic ectasia
CPT/HCPCS: 71250